=== PATIENT | male | born 1960 | race Caucasian/White ===

== ENCOUNTER → 2018-01-24 | Outpatient (CLI) | payer OTHER ==
--- NOTE | 2018-01-26 18:55 | MR ---
EXAMINATION TYPE: MR lumbar spine wo/w con DATE OF EXAM: 01/24/2018 COMPARISON: Prior MRI lumbar spine May 18, 2014. CT abdomen January 31, 2016. HISTORY: Pain, Postlaminectomy syndrome per order. Abnormal EMG with pain going into both lower extre mities, history of prior surgery 2003 per patient. TECHNIQUE: Multiplanar, multisequence images of the lumbar spine is performed without and with IV contrast, util izing 7.5 mL intravenous Gadavist FINDINGS: Sagittal images of the lumbar spine show vertebral body heights and alignment to remain sat isfactory. There is artifact from artificial disc material L4-L5 level redemonstrated. There is multi level disc desiccation and superior and inferior to this. There is stable mild disc space narrowing p osteriorly at L3-L4 level with small posterior disc herniation seen on sagittal images effacing anter ior thecal sac. The conus medullaris is stable in position and signal ending T12-L1 level. The bone marrow signal intensity is within normal limits. No suspicious enhancement is seen. Mild to minimal m ultilevel anterior spurring is redemonstrated. Axial images show the T12-L1 level to remain within normal limits. Axial images at L1-L2 level show persistent mild to moderate broad disc bulge mildly effaces the ante rior thecal sac on axial image 23, bilateral neural foramina are patent. No significant change from p rior MRI. Axial images at L2-L3 level show mild facet degenerative changes bilaterally and mild broad disc bulg e mildly effaces the anterior thecal sac there is left lateral disc protrusion component on axial tiffanie ge 18. There is mild left greater than right anterior inferior neural foraminal narrowing seen best o n sagittal image 3 redemonstrated. Right-sided neural foramen is patent. Axial images at L3-L4 level redemonstrate moderate facet degenerative change bilaterally. There is pe rsistent moderate right-sided neural foraminal narrowing and mild left-sided neural foraminal narrowi ng. There is broad-based posterior disc protrusion mildly effaces the anterior thecal sac on axial im age 14. Encroachment on right L3 nerve is difficult to exclude on sagittal image 12 along posterior and inferior aspect similar to prior MRI. There is spinous process resection redemonstrated. Axial images at L4-L5 level redemonstrated bilateral laminectomy defects and spinous process resectio n. Artifact from this material is seen. Spinal canal is preserved. Bilateral neural foramina are walsh nt. Moderate to advanced bilateral facet arthropathy is redemonstrated. Axial images at L5-S1 level redemonstrated man status post facet degenerative changes bilaterally. Th ere is posterior spinous process resection. Spinal canal is preserved. Bilateral neural foramina are patent. There is infrarenal abdominal aortic aneurysm measuring up to 3.2 cm transverse diameter axial image 18 redemonstrated. IMPRESSION: Postsurgical change L4-L5 level redemonstrated with stable and satisfactory alignment. Mu ltilevel degenerative changes are seen as detailed above without significant change or progression fr om prior MRI. A 3.2 cm infrarenal abdominal aortic aneurysm is noted.
== END ==
LOC: RADMRIMAIN 19:50
PROVIDERS: ATTEND Anesthesiology Pain Medicine
DX: M51.36 Other intervertebral disc degeneration, lumbar region (principal); M48.061 Spinal stenosis, lumbar region without neurogenic claudication; M51.26 Other intervertebral disc displacement, lumbar region; M46.96 Unspecified inflammatory spondylopathy, lumbar region; I71.4 Abdominal aortic aneurysm, without rupture; M96.1 Postlaminectomy syndrome, not elsewhere classified
CPT/HCPCS: 72158

== ENCOUNTER 2018-02-19 13:31 | Inpatient (IN) | payer OTHER ==
[2018-02-19 14:12] LABS: Basophils % (A) 0 %; Eosinophils # (A) 0.3 k/uL (0-0.7); Eosinophils % (A) 4 %; HCT 37.9 % (39.0-53.0); HGB 12.7 gm/dL (13.0-17.5); Lymphocytes % (A) 15 %; MCH 29.9 pg (25.0-35.0); MCHC 33.6 g/dL (31.0-37.0); MCV 89.1 fL (80.0-100.0); Mean Platelet Volume 7.6; Monocytes # (A) 0.6 k/uL (0-1.0); Monocytes % (A) 8 %; Neutrophils # (A) 4.8 k/uL (1.3-7.7); Neutrophils % (A) 69 %; Platelet Count 229 k/uL (150-450); RBC 4.25 m/uL (4.30-5.90); RDW 13.8 % (11.5-15.5); WBC 6.9 k/uL (3.8-10.6)
--- NOTE | 2018-02-19 14:18 | XR ---
EXAMINATION TYPE: XR chest 2V DATE OF EXAM: 02/19/2018 COMPARISON: Prior chest x-ray 04/25/2016 HISTORY: Chest pain TECHNIQUE: Frontal and lateral views of the chest are obtained. FINDINGS: There is no focal air space opacity, pleural effusion, or pneumothorax seen. The cardiac silhouette size is within normal limits. The osseous structures are intact. There are overlying car diac leads. Arthropathy noted within the shoulders. Lung volumes again noted to be prominent, possibl y indicative of COPD. IMPRESSION: No acute cardiopulmonary process.
--- NOTE | 2018-02-19 14:18 | ED ---
General Adult HPI - General Chief complaint: Chest Pain Stated complaint: Chest Pain Time Seen by Provider: 02/19/18 13:37 Source: patient Mode of arrival: wheelchair Limitations: no limitations - Related Data Home Medications Medication Instructions Recorded Confirmed Aspirin 81 mg PO DAILY 01/10/16 02/19/18 Leflunomide [Arava] 20 mg PO DAILY 04/25/16 02/19/18 Diltiazem HCl [Diltiazem 24Hr ER] 240 mg PO Q24HR 08/07/17 02/19/18 Buprenorphine HCl/Naloxone HCl 0.5 tab SL BID 02/19/18 02/19/18 [Zubsolv 2.9-0.71 mg Tablet Sl] Cetirizine HCl [Zyrtec] 10 mg PO DAILY 02/19/18 02/19/18 Etanercept [Enbrel] 50 mg SQ Q7DAYS 02/19/18 02/19/18 Gabapentin [Neurontin] 300 mg PO HS 02/19/18 02/19/18 traZODone HCL 150 mg PO HS 02/19/18 02/19/18 Previous Rx's Medication Instructions Recorded Nitroglycerin Sl Tabs [Nitrostat] 0.4 mg SUBLINGUAL Q5M PRN #25 tab 04/26/16 Allergies Allergy/AdvReac Type Severity Reaction Status Date / Time rofecoxib [From Vioxx] Allergy Severe Swelling Verified 02/19/18 14:09 Review of Systems ROS Statement: Those systems with pertinent positive or pertinent negative responses have been documented in the HPI. ROS Other: All systems not noted in ROS Statement are negative. Past Medical History Past Medical History: Chest Pain / Angina, Hyperlipidemia, Hypertension, Rheumatoid Arthritis (RA) Additional Past Medical History / Comment(s): "muscle spasms in heart", hiatal hernia, History of Any Multi-Drug Resistant Organisms: None Reported Past Surgical History: Appendectomy, Back Surgery, Cholecystectomy, Heart Catheterization, Tonsillectomy Additional Past Surgical History / Comment(s): DENTAL IMPLANT Past Anesthesia/Blood Transfusion Reactions: Family History of Problems w/ Anesthesia Additional Past Anesthesia/Blood Transfusion Reaction / Comment(s): sister- long time to come out Past Psychological History: No Psychological Hx Reported Smoking Status: Current every day smoker Past Alcohol Use History: None Reported Past Drug Use History: None Reported - Past Family History Father History Unknown: Yes Mother Family Medical History: No Reported History General Exam Limitations: no limitations Course Vital Signs 02/19/18 02/19/18 02/19/18 13:36 14:28 15:18 Temperature 98.3 F Pulse Rate 70 79 70 Respiratory 18 16 18 Rate Blood Pressure 107/65 112/64 125/56 O2 Sat by Pulse 98 96 97 Oximetry EKG Findings - EKG Comments: EKG Findings:: EKG shows sinus rhythm rate of 61, RI 144, QRS 86, QTc 426, EKG is repeated with no morphological changes Medical Decision Making - Lab Data Result diagrams: 02/19/18 13:56 02/19/18 13:56 Lab Results 02/19/18 02/19/18 02/19/18 Range/Units 13:56 13:56 13:56 WBC 6.9 (3.8-10.6) k/uL RBC 4.25 L (4.30-5.90) m/uL Hgb 12.7 L (13.0-17.5) gm/dL Hct 37.9 L (39.0-53.0) % MCV 89.1 (80.0-100.0) fL MCH 29.9 (25.0-35.0) pg MCHC 33.6 (31.0-37.0) g/dL RDW 13.8 (11.5-15.5) % Plt Count 229 (150-450) k/uL Neutrophils % 69 % Lymphocytes % 15 % Monocytes % 8 % Eosinophils % 4 % Basophils % 0 % Neutrophils # 4.8 (1.3-7.7) k/uL Lymphocytes # 1.0 (1.0-4.8) k/uL Monocytes # 0.6 (0-1.0) k/uL Eosinophils # 0.3 (0-0.7) k/uL Basophils # 0.0 (0-0.2) k/uL PT (9.0-12.0) sec INR (<1.2) APTT (22.0-30.0) sec Sodium 139 (137-145) mmol/L Potassium 3.8 (3.5-5.1) mmol/L Chloride 105 (98-107) mmol/L Carbon Dioxide 23 (22-30) mmol/L Anion Gap 11 mmol/L BUN 11 (9-20) mg/dL Creatinine 0.69 (0.66-1.25) mg/dL Est GFR (CKD-EPI)AfAm >90 (>60 ml/min/1.73 sqM) Est GFR (CKD-EPI)NonAf >90 (>60 ml/min/1.73 sqM) Glucose 91 (74-99) mg/dL Calcium 8.7 (8.4-10.2) mg/dL Magnesium 1.9 (1.6-2.3) mg/dL Total Bilirubin 1.5 H (0.2-1.3) mg/dL AST 89 H (17-59) U/L ALT 167 H (21-72) U/L Alkaline Phosphatase 696 H (38-126) U/L Total Creatine Kinase 79 (55-170) U/L CK-MB (CK-2) 2.5 H* (0.0-2.4) ng/mL CK-MB (CK-2) Rel Index 3.2 Troponin I <0.012 (0.000-0.034) ng/mL Total Protein 6.2 L (6.3-8.2) g/dL Albumin 3.2 L (3.5-5.0) g/dL Lipase (23-300) U/L Urine Color Urine Appearance (Clear) Urine pH (5.0-8.0) Ur Specific [place] (1.001-1.035) Urine Protein (Negative) Urine Glucose (UA) (Negative) Urine Ketones (Negative) Urine Blood (Negative) Urine Nitrite (Negative) Urine Bilirubin (Negative) Urine Urobilinogen (<2.0) mg/dL Ur Leukocyte Esterase (Negative) Urine RBC (0-5) /hpf Urine WBC (0-5) /hpf Calcium Oxalate Crystal (None) /hpf Amorphous Sediment (None) /hpf Urine Mucus (None) /hpf 02/19/18 02/19/18 02/19/18 Range/Units 13:56 13:56 14:58 WBC (3.8-10.6) k/uL RBC (4.30-5.90) m/uL Hgb (13.0-17.5) gm/dL Hct (39.0-53.0) % MCV (80.0-100.0) fL MCH (25.0-35.0) pg MCHC (31.0-37.0) g/dL RDW (11.5-15.5) % Plt Count (150-450) k/uL Neutrophils % % Lymphocytes % % Monocytes % % Eosinophils % % Basophils % % Neutrophils # (1.3-7.7) k/uL Lymphocytes # (1.0-4.8) k/uL Monocytes # (0-1.0) k/uL Eosinophils # (0-0.7) k/uL Basophils # (0-0.2) k/uL PT 10.1 (9.0-12.0) sec INR 1.0 (<1.2) APTT 22.0 (22.0-30.0) sec Sodium (137-145) mmol/L Potassium (3.5-5.1) mmol/L Chloride (98-107) mmol/L Carbon Dioxide (22-30) mmol/L Anion Gap mmol/L BUN (9-20) mg/dL Creatinine (0.66-1.25) mg/dL Est GFR (CKD-EPI)AfAm (>60 ml/min/1.73 sqM) Est GFR (CKD-EPI)NonAf (>60 ml/min/1.73 sqM) Glucose (74-99) mg/dL Calcium (8.4-10.2) mg/dL Magnesium (1.6-2.3) mg/dL Total Bilirubin (0.2-1.3) mg/dL AST (17-59) U/L ALT (21-72) U/L Alkaline Phosphatase (38-126) U/L Total Creatine Kinase (55-170) U/L CK-MB (CK-2) (0.0-2.4) ng/mL CK-MB (CK-2) Rel Index Troponin I (0.000-0.034) ng/mL Total Protein (6.3-8.2) g/dL Albumin (3.5-5.0) g/dL Lipase 597 H (23-300) U/L Urine Color Dark Yellow Urine Appearance Clear (Clear) Urine pH 6.0 (5.0-8.0) Ur Specific [place] 1.018 (1.001-1.035) Urine Protein Trace H (Negative) Urine Glucose (UA) Negative (Negative) Urine Ketones Negative (Negative) Urine Blood Negative (Negative) Urine Nitrite Negative (Negative) Urine Bilirubin 1+ H (Negative) Urine Urobilinogen 8.0 (<2.0) mg/dL Ur Leukocyte Esterase Small H (Negative) Urine RBC 2 (0-5) /hpf Urine WBC 6 H (0-5) /hpf Calcium Oxalate Crystal Rare H (None) /hpf Amorphous Sediment Rare H (None) /hpf Urine Mucus Many H (None) /hpf Disposition Clinical Impression: Unstable angina pectoris, Chest pain Disposition: ADMITTED IP TO THIS HOSP Condition: Undetermined Instructions: Chest Pain (ED) Is patient prescribed a controlled substance at d/c from ED?: No Referrals: Edmund Powers DO [Primary Care Provider] - 1-2 days
[2018-02-19 14:29] LABS: ALT 167 U/L (21-72); AST 89 U/L (17-59); Albumin 3.2 g/dL (3.5-5.0); Alkaline Phosphatase 696 U/L (38-126); Anion Gap 11 mmol/L; Blood Urea Nitrogen 11 mg/dL (9-20); Calcium 8.7 mg/dL (8.4-10.2); Carbon Dioxide 23 mmol/L (22-30); Chloride 105 mmol/L (98-107); Glucose 91 mg/dL (74-99); Magnesium 1.9 mg/dL (1.6-2.3); Potassium 3.8 mmol/L (3.5-5.1); Sodium 139 mmol/L (137-145); Total Bilirubin 1.5 mg/dL (0.2-1.3); Total Protein 6.2 g/dL (6.3-8.2)
[2018-02-19 14:31] LABS: Prothrombin Time 10.1 sec (9.0-12.0)
[2018-02-19 14:44] LABS: Creatine Kinase 79 U/L (55-170)
[2018-02-19 14:57] LABS: Troponin I <0.012 ng/mL (0.000-0.034)
[2018-02-19] MEDS ORDERED: MORPHINE SULFATE 2 MG/ML SYRINGE IVP PRN (14:58)
[2018-02-19] MEDS ORDERED: MORPHINE SULFATE 2 MG/ML SYRINGE IVP STA (14:58)
[2018-02-19 14:59] LABS: Creatine Kinase MB 2.5 ng/mL (0.0-2.4)
[2018-02-19] MEDS ORDERED: AMPICILLIN-SULBACTAM 3 GM in SODIUM CHLORIDE 0.9% 100 ML IVPB STA (14:59)
[2018-02-19 15:17] LABS: Amorphous Sediment,Urine Rare /hpf; Appearance,Urine Clear (Clear); Bilirubin,Urine 1+ (Negative); Blood,Urine Negative (Negative); Calcium Oxalate Crystals,Urine Rare /hpf; Color,Urine Dark Yellow; Glucose,Urine (UA) Negative (Negative); Ketones,Urine Negative (Negative); Leukocyte Esterase,Urine Small (Negative); Mucus,Urine Many /hpf; Nitrite,Urine Negative (Negative); Protein,Urine Trace (Negative); RBC,Urine 2 /hpf (0-5); Specific Gravity,Urine 1.018 (1.001-1.035); WBC,Urine 6 /hpf (0-5)
[2018-02-19] MEDS ORDERED: ASPIRIN 81 MG PO STA (16:10)
[2018-02-19] MEDS ORDERED: HEPARIN SODIUM,PORCINE 5,000 UNIT/ML 1 ML VIAL IV ONE (16:10)
[2018-02-19] MEDS ORDERED: NITROGLYCERIN SL TABS 0.4 MG TAB SUBLINGUAL PRN ×2 (16:10→17:41)
[2018-02-19] MEDS ORDERED: HEPARIN SODIUM,PORCINE 5,000 UNIT/ML 1 ML VIAL IV PRN (16:10)
[2018-02-19] MEDS ORDERED: HEPARIN SOD,PORK IN 0.45% NACL 25,000 UNIT in 0.45% NACL 1 500ML.BAG IV SCH (16:15)
--- NOTE | 2018-02-19 16:36 | US ---
EXAMINATION TYPE: US gallbladder DATE OF EXAM: 02/19/2018 COMPARISON: CLINICAL HISTORY: Pain. GB removed x 4 years per patient, NPO, RUQ pain EXAM MEASUREMENTS: Liver Length: 18.1 cm CBD: 0.4 cm CHD: 0.3 cm Right Kidney: 11.4 x 4.5 x 5.0 cm Pancreas: Tail not well visualized. Echogenic. Main pancreatic duct appears upper limits of normal = 2.6 mm. Liver: Appears enlarged Gallbladder: Surgically absent Evidence for sonographic Park's sign: neg CBD: wnl CHD: wnl Right Kidney: wnl In upper midline abdomen, prominent simple cystic appearing lesion seen = 3.3 x 2.4 x 2.1 cm IMPRESSION: 1. Hepatomegaly.
--- NOTE | 2018-02-19 17:41 | P.HPIM ---
History of Present Illness H&P Date: 02/19/18 Chief Complaint: Chest pain/mid epigastric pain. 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 previous medical history significant for hypertension and hypertensive cardiovascular disease, history of Prinzmetal angina, chronic tobacco use and dependence, history of the hyperlipidemia, rheumatoid arthritis, patient was walking when he suddenly developed to have a left-sided chest pain radiating to the jaw associated with severe mid epigastric pain , patient try to take a nitroglycerin he took one every 5 minutes without any help he ended up driving to work and he asked one of his coworker to bring him to the emergency department at [facility] he had a twelve-lead EKG did not show any evidence of acute of normalities, however he was found to have an elevated liver function tests including bilirubin with elevated lipase he had an ultrasound of the abdomen that showed hepatomegaly without evidence of dilated common bile duct suggestive of possible a passed common bile duct stone however the pancreatic duct was slightly at the upper limit of normal, patient was sitting up in bed that he was eating his dinner he had no evidence of pain at that time. However because of the presentation patient was admitted to the hospital for evaluation by cardiology he also need to be evaluated by a computed tomography scan of the abdomen and pelvis with contrast for further evaluation of the pancreatic area due to his pancreatitis. Review of Systems Constitutional: Denies anorexia, Denies chronic headaches, Denies lethargy, Denies weakness, Denies weight gain Eyes: denies blurred vision, denies bulging eye, denies decreased vision Ears: deny: decreased hearing Ears, nose, mouth and throat: Denies dysphagia, Denies neck lump, Denies sore throat Cardiovascular: Reports chest pain, Reports decreased exercise tolerance, Reports high blood pressure, Reports shortness of breath, Denies rapid heart beat, Denies syncope Respiratory: Reports cough with sputum, Denies congestion, Denies home oxygen, Denies sleep apnea, Denies snoring, Denies wheezing Gastrointestinal: Reports abdominal pain, Reports bloating, Reports nausea, Denies heartburn, Denies melena, Denies vomiting Genitourinary: Denies dysuria, Denies nocturia, Denies testicular lump Musculoskeletal: Denies myalgias Musculoskeletal: left: ankle pain, ankle stiffness, foot pain, foot stiffness, foot swelling, absent: elbow pain, elbow stiffness, elbow swelling, hand pain, hand stiffness, hand swelling, hip pain, hip stiffness, hip swelling, knee pain , knee stiffness, knee swelling, shoulder pain, shoulder stiffness, shoulder swelling, wrist pain, wrist stiffness, wrist swelling Integumentary: Denies pruritus, Denies rash Neurological: Denies numbness, Denies weakness Psychiatric: Denies anxiety, Denies depression Endocrine: Denies fatigue, Denies weight change Past Medical History Past Medical History: Chest Pain / Angina, Hyperlipidemia, Hypertension, Rheumatoid Arthritis (RA) Additional Past Medical History / Comment(s): "muscle spasms in heart", hiatal hernia, History of Any Multi-Drug Resistant Organisms: None Reported Past Surgical History: Appendectomy, Back Surgery, Cholecystectomy, Heart Catheterization, Tonsillectomy Additional Past Surgical History / Comment(s): DENTAL IMPLANT Past Anesthesia/Blood Transfusion Reactions: Family History of Problems w/ Anesthesia Additional Past Anesthesia/Blood Transfusion Reaction / Comment(s): sister- long time to come out Past Psychological History: No Psychological Hx Reported Smoking Status: Current every day smoker (Patient smoked about a pack every day start smoking when he was 16-year-old.) Past Alcohol Use History: None Reported Past Drug Use History: None Reported - Past Family History Father History Unknown: Yes Family Medical History: Unable to Obtain (Patient is no much about his father.) Mother Family Medical History: Coronary Artery Disease (CAD), Rheumatoid Arthritis (RA ) (Mother is 78-year-old has history of CAD and rheumatoid arthritis.) Brother(s) Family Medical History: No Reported History (Patient has 4 brothers no major medical problems.) Sister(s) Family Medical History: Rheumatoid Arthritis (RA) (Patient has 2 sisters with rheumatoid arthritis.) Daughter(s) Family Medical History: No Reported History (Patient has 2 daughters no major medical problems.) Medications and Allergies Home Medications Medication Instructions Recorded Confirmed Type Aspirin 81 mg PO DAILY 01/10/16 02/19/18 History Leflunomide [Arava] 20 mg PO DAILY 04/25/16 02/19/18 History Nitroglycerin Sl Tabs [Nitrostat] 0.4 mg SUBLINGUAL Q5M PRN #25 tab 04/26/16 Rx Diltiazem HCl [Diltiazem 24Hr ER] 240 mg PO Q24HR 08/07/17 02/19/18 History Buprenorphine HCl/Naloxone HCl 0.5 tab SL BID 02/19/18 02/19/18 History [Zubsolv 2.9-0.71 mg Tablet Sl] Cetirizine HCl [Zyrtec] 10 mg PO DAILY 02/19/18 02/19/18 History Etanercept [Enbrel] 50 mg SQ Q7DAYS 02/19/18 02/19/18 History Gabapentin [Neurontin] 300 mg PO HS 02/19/18 02/19/18 History traZODone HCL 150 mg PO HS 02/19/18 02/19/18 History Allergies Allergy/AdvReac Type Severity Reaction Status Date / Time rofecoxib [From Vioxx] Allergy Severe Swelling Verified 02/19/18 14:09 Physical Exam Vitals: Vital Signs Temp Pulse Resp BP Pulse Ox 02/19/18 17:21 76 18 145/67 95 02/19/18 16:18 67 18 129/72 97 02/19/18 15:18 70 18 125/56 97 02/19/18 14:28 79 16 112/64 96 02/19/18 13:36 98.3 F 70 18 107/65 98 Intake and Output 02/19/18 02/19/18 02/19/18 06:59 14:59 22:59 Other: Weight 81.647 kg - Constitutional General appearance: average body habitus, no acute distress - EENT Eyes: anicteric sclerae, EOMI, PERRLA, no ptosis, no scleral icterus, normal appearance ENT: hearing grossly normal, NA/AT, normal oropharynx, no thrush Ears: bilateral: normal - Neck Neck: no lymphadenopathy, normal ROM, no rigidity, no stridor, no thyromegaly Carotids: bilateral: upstroke normal Thyroid: bilateral: normal size - Respiratory Respiratory: bilateral: diminished, wheezing, prolonged expiration, negative: dullness, rales, rhonchi - Cardiovascular Rhythm: regular Heart sounds: normal: S1, S2 Abnormal Heart Sounds: systolic murmur, no S3 Gallop - Gastrointestinal General gastrointestinal: normal bowel sounds, soft, tenderness (Epigastric area.), no umbilical hernia, no ventral hernia - Integumentary Integumentary: normal, normal turgor - Neurologic Neurologic: CNII-XII intact - Musculoskeletal Musculoskeletal: gait normal, strength equal bilaterally - Psychiatric Psychiatric: A&O x's 3, appropriate affect, intact judgment & insight Results CBC & Chem 7: 18 13:56 02/19/18 13:56 Labs: Abnormal Lab Results - Last 24 Hours (Table) 02/19/18 02/19/18 02/19/18 Range/Units 13:56 13:56 13:56 RBC 4.25 L (4.30-5.90) m/uL Hgb 12.7 L (13.0-17.5) gm/dL Hct 37.9 L (39.0-53.0) % Total Bilirubin 1.5 H (0.2-1.3) mg/dL AST 89 H (17-59) U/L ALT 167 H (21-72) U/L Alkaline Phosphatase 696 H (38-126) U/L CK-MB (CK-2) 2.5 H* (0.0-2.4) ng/mL Total Protein 6.2 L (6.3-8.2) g/dL Albumin 3.2 L (3.5-5.0) g/dL Lipase (23-300) U/L Urine Protein (Negative) Urine Bilirubin (Negative) Ur Leukocyte Esterase (Negative) Urine WBC (0-5) /hpf Calcium Oxalate Crystal (None) /hpf Amorphous Sediment (None) /hpf Urine Mucus (None) /hpf 18 02/19/18 Range/Units 13:56 14:58 RBC (4.30-5.90) m/uL Hgb (13.0-17.5) gm/dL Hct (39.0-53.0) % Total Bilirubin (0.2-1.3) mg/dL AST (17-59) U/L ALT (21-72) U/L Alkaline Phosphatase (38-126) U/L CK-MB (CK-2) (0.0-2.4) ng/mL Total Protein (6.3-8.2) g/dL Albumin (3.5-5.0) g/dL Lipase 597 H (23-300) U/L Urine Protein Trace H (Negative) Urine Bilirubin 1+ H (Negative) Ur Leukocyte Esterase Small H (Negative) Urine WBC 6 H (0-5) /hpf Calcium Oxalate Crystal Rare H (None) /hpf Amorphous Sediment Rare H (None) /hpf Urine Mucus Many H (None) /hpf Thrombosis Risk Factor Assmnt - DVT/VTE Prophylaxis DVT/VTE Prophylaxis: Pharmacologic Prophylaxis ordered, Mechanical Prophylaxis ordered Assessment and Plan Assessment: Assessment and plan: 1. Left-sided chest pain thought to be due to Prinzmetal angina. Continue Cardizem CD 240 mg orally once every day, check cardiac biomarkers 3, telemetry , aspirin 325 mg once every day, heparin drip, nitroglycerin, cardiology consultation. 2. Mid epigastric abdominal pain with elevated liver function tests and hepatomegaly with prominent pancreatic duct and pancreatitis. This seems to be a possible passed common bile duct stone even though the common bile duct stone even though the ultrasound that showed evidence of dilatation of the CBD, however because of the elevated liver function tests and bilirubin along with the pancreatitis this is has to be related to that however patient will need to go for a computed tomography scan of the abdomen with contrast for further evaluation this will be done the next 24 hours after repeating his CMP amylase and lipase if they continued to be persistently elevated. 3. Hypertension and hypertensive cardiovascular disease. Continue Cardizem CD 240 mg orally once every day. 4. Hyperlipidemia. Lipid panel will be done. 5. Rheumatoid arthritis. Continue Arava 20 mg orally once every day hold off Enbrel for now. 6. Insomnia. Continue trazodone 150 mg at bedtime. 7. History of narcotic prescription use. Currently is on Suboxone 8. DVT prophylaxis. Continue heparin drip. 9. GI prophylaxis. Continue patient on PPI. 10. Observation.
[2018-02-19 18:19] VITALS: BMI 25.9
[2018-02-19] MEDS: traZODone HCL 50 MG TAB PO SCH (20:51)
[2018-02-19] MEDS: GABAPENTIN 300 MG CAP PO SCH (20:51)
[2018-02-19] MEDS: METOPROLOL TARTRATE 25 MG TAB PO SCH (20:52)
[2018-02-19] MEDS: NALOXONE HCL SL SCH (20:57)
[2018-02-19] MEDS: BUPRENORPHINE HCL SL SCH (20:57)
[2018-02-19] MEDS: [UNRECOGNIZED DRUG - OTHER] SL SCH (20:57)
[2018-02-19 21:08] LABS: Creatine Kinase 53 U/L (55-170)
[2018-02-19 21:21] LABS: Creatine Kinase MB 1.7 ng/mL (0.0-2.4); Troponin I <0.012 ng/mL (0.000-0.034)
[2018-02-20 03:14] LABS: Creatine Kinase 39 U/L (55-170)
[2018-02-20 03:25] LABS: Creatine Kinase MB 1.4 ng/mL (0.0-2.4); Troponin I <0.012 ng/mL (0.000-0.034)
[2018-02-20 07:18] LABS: ALT 159 U/L (21-72); AST 98 U/L (17-59); Albumin 2.7 g/dL (3.5-5.0); Alkaline Phosphatase 635 U/L (38-126); Anion Gap 6 mmol/L; Blood Urea Nitrogen 11 mg/dL (9-20); Calcium 8.4 mg/dL (8.4-10.2); Carbon Dioxide 23 mmol/L (22-30); Chloride 108 mmol/L (98-107); Cholesterol 128 mg/dL (<200); Glucose 137 mg/dL (74-99); HDL Cholesterol 35 mg/dL (40-60); LDL Cholesterol,Calculated 66 mg/dL (0-99); Lipase 776 U/L (23-300); Potassium 4.2 mmol/L (3.5-5.1); Sodium 137 mmol/L (137-145); Total Bilirubin 1.1 mg/dL (0.2-1.3); Total Protein 5.5 g/dL (6.3-8.2); Triglycerides 136 mg/dL (<150)
[2018-02-20] MEDS ORDERED: AMINOPHYLLINE 500 MG/20 ML VIAL IV PRN (07:18)
[2018-02-20] MEDS ORDERED: REGADENOSON 0.4 MG/5 ML SYRINGE IV ONE (07:18)
[2018-02-20 07:24] LABS: Basophils % (A) 0 %; Eosinophils # (A) 0.4 k/uL (0-0.7); Eosinophils % (A) 6 %; HCT 42.2 % (39.0-53.0); HGB 13.1 gm/dL (13.0-17.5); Hypochromasia Slight; Lymphocytes % (A) 15 %; MCH 28.5 pg (25.0-35.0); MCHC 30.9 g/dL (31.0-37.0); MCV 92.1 fL (80.0-100.0); Mean Platelet Volume 7.5; Monocytes # (A) 0.6 k/uL (0-1.0); Monocytes % (A) 10 %; Neutrophils # (A) 4.1 k/uL (1.3-7.7); Neutrophils % (A) 65 %; Platelet Count 229 k/uL (150-450); RBC 4.58 m/uL (4.30-5.90); RDW 13.9 % (11.5-15.5); WBC 6.2 k/uL (3.8-10.6)
[2018-02-20] MEDS: DILTIAZEM CD 240 MG CAP.ER.24H PO SCH (08:20)
[2018-02-20] MEDS: PANTOPRAZOLE 40 MG TABLET PO SCH (08:20)
[2018-02-20] MEDS: LORATADINE 10 MG TAB PO SCH (08:20)
[2018-02-20] MEDS: ATORVASTATIN 80 MG TAB PO SCH (08:21)
[2018-02-20] MEDS: METOPROLOL TARTRATE 25 MG TAB PO SCH ×2 (08:21→21:22)
[2018-02-20] MEDS: LEFLUNOMIDE 20 MG TAB PO SCH (08:21)
[2018-02-20] MEDS: ASPIRIN 325 MG TAB PO SCH (08:24)
--- NOTE | 2018-02-20 09:28 | P.PN ---
Progress Note - Text Progress Note Date: 02/20/18 Consult attempted patient off unit for stress test
--- NOTE | 2018-02-20 11:22 | NM ---
EXAMINATION TYPE: NM stress lexiscan cardiolite DATE OF EXAM: 02/20/2018 COMPARISON: NONE HISTORY: Chest pain TECHNIQUE: After the intravenous administration of 10.1 mCi Tc 99m Sestamibi - Cardiolite resting SP ECT images acquired 70 minutes post injection. The patient received 0.4mg Lexiscan, 25.5 mCi Tc 99m Sestamibi - Stress images obtained [address] injection FINDINGS: Review of stress and rest SPECT images demonstrates decreased radio pharmaceutical uptake towards the apex of the inferolateral left ventricle on stress as compared to rest imaging, gut activity also no vineet Gated analysis shows normal wall motion with an estimated left ventricular ejection fraction of 6 3 %. IMPRESSION: Pharmacologically induced left ventricular myocardial ischemia
--- NOTE | 2018-02-20 11:22 | CONS ---
CONSULTATION This is a 57-year-old gentleman with a fairly hardworking person. He used to see Dr. Sabrina Pritchard until 2016 and now sees a orientation and mobility specialist in the [place] area. He came into the hospital mainly with complaints of what seems to be a discomfort in the chest and the quality of the pain seemed somewhat atypical but it seemed to persist and it bothered him to the extent that he took nitroglycerin sublingual and did not obtain relief and then came into the hospital. He has a history of cardiac cath in 2016 which did not reveal any significant CAD. There is a question of vasospasm of his coronary arteries, but never documented. He also has hypertension, hyperlipidemia, rheumatoid arthritis, and he smokes. He is status post appendectomy and cholecystectomy. At the time of my evaluation, he is resting comfortably without symptoms. His 3 sets of troponins are normal and EKG remains unremarkable. PAST MEDICAL HISTORY: Remarkable for a cardiac cath that was unremarkable in 2016, hypertension, hyperlipidemia, rheumatoid arthritis. He has also history of cholecystectomy and appendectomy in the past. MEDICATIONS: At home include aspirin, he takes sublingual nitroglycerin, diltiazem for a question of vasospasm, which does not seem to have been well quantified. He takes Zyrtec and Neurontin, trazodone. He is allergic to VIOXX. PHYSICAL EXAMINATION: Blood pressure is 128/70, pulse rate is 60 per minute, regular. HEENT: Unremarkable. Fundus was not examined by me. Neck is supple. No JVD. I do not hear a carotid bruit. There is no thyromegaly. Heart exam reveals S1, S2 heard normally without any rub, murmur or gallop. Lungs are clear. Abdomen is soft, nontender. Lower extremities reveal normal pulses. No edema. Central nervous system is normal. EKG revealed sinus mechanism, isolated PVCs. LABORATORY DATA: Reveals unremarkable troponins. IMPRESSION: 1. Chest pain syndrome, unlikely to be angina but patient has history of vasospastic angina, I am not sure how this was quantified. He has had a cardiac cath that was unremarkable in December 2015. 2. Hypertension. 3. Hyperlipidemia. 4. History of rheumatoid arthritis. RECOMMENDATIONS: I have reviewed the cath report and noted that he does not have any significant obstructive CAD. Apparently, there was some spasm with nitroglycerin, there was improvement in the caliber of the vessel. However, there is also a small question of infrarenal aneurysm as well on the cardiac cath report. I am recommending that we will perform a Lexiscan stress test and if this is normal, he can be discharged. I have spent substantial amount of time and explained to the patient the importance of quitting smoking. I have advised him that if the stress test is normal, he can go home with the same medications, but he should quit smoking. He will have a Lexiscan stress test today. Thank you very much for the consult. AMY / DEB: [id number] /
--- NOTE | 2018-02-20 12:09 | P.CONS ---
History of Present Illness - Reason for Consult Consult date: 02/20/18 Hepatomegaly possible CBD stone Requesting physician: Chintan Gregory - History of Present Illness 57-year-old male with a history of cholelithiasis cholecystectomy 4-5 years ago , remote EtOH abuse quit 22 years ago, hypertension, hypertensive could've vascular disease Prinzmetal angina, nicotine cigarette dependency, RA admitted with acute midsternal left-sided chest pain as well as epigastric pain radiating to his left arm up to his jaw that started around noon yesterday. He had a previous incident of this type of pain a week ago but not as intense as well as his urine being more dark in color over the last week. Lexiscan stress test performed this morning results identified pharmacological induced left ventricular myocardial ischemia. Admission white count 6.9. Hemoglobin 12.7. INR 1.0. Total bilirubin 1.5. AST 89. ALT 167. AP with 696. Triglycerides 136. Lipase 596. Today lipase is 776. Total bilirubin improved 1.1. AST 98. ALT 159. AP 635. Troponin 3 less than 0.012. No changes in medications. No recent alcohol consumption. Ultrasound of the abdomen reported hepatomegaly 18.1 cm. CBD 0.4 cm. Review of Systems Constitutional: Denies fever, chills, sweats, weight gain, or loss. HEENT: Negative for migraines, blurred vision or loss, earaches, drainage, tinnitus, oral mucosal lesions, dysphagia, or odynophagia. Cardiac: History of chest pain, hypertension. Respiratory: Negative for shortness of breath, hemoptysis, cough, or sputum production. Gastrointestinal: See HPI for pertinent findings. Genitourinary: Negative for hematuria, urgency, frequency, polyuria, dysuria, or penile discharge. Musculoskeletal: History of rheumatoid arthritis. Negative for muscle aches, swelling, arthritis, and arthralgias. Neurologic: Negative for stroke or TIA. Endocrine: Negative for thyroid problems. Skin: Negative for rash or itching. Psychiatric: Negative history for depression and anxiety Past Medical History Past Medical History: Chest Pain / Angina, Hyperlipidemia, Hypertension, Rheumatoid Arthritis (RA) Additional Past Medical History / Comment(s): "muscle spasms in heart", hiatal hernia, History of Any Multi-Drug Resistant Organisms: None Reported Past Surgical History: Appendectomy, Back Surgery, Cholecystectomy, Heart Catheterization, Tonsillectomy Additional Past Surgical History / Comment(s): DENTAL IMPLANT Past Anesthesia/Blood Transfusion Reactions: Family History of Problems w/ Anesthesia Additional Past Anesthesia/Blood Transfusion Reaction / Comm: sister- long time to come out Past Psychological History: No Psychological Hx Reported Additional Psychological History / Comment(s): . Smoking Status: Current every day smoker Past Alcohol Use History: None Reported Additional Past Alcohol Use History / Comment(s): smokes 1 PPD, started smoking age 16 Past Drug Use History: None Reported Additional Drug Use History / Comment(s): SMOKES MARIJUANA OCC - Past Family History Father History Unknown: Yes Family Medical History: Unable to Obtain (Patient is no much about his father.) Mother Family Medical History: Coronary Artery Disease (CAD), Rheumatoid Arthritis (RA) Brother(s) Family Medical History: No Reported History Sister(s) Family Medical History: Rheumatoid Arthritis (RA) Daughter(s) Family Medical History: No Reported History Medications and Allergies Home Medications Medication Instructions Recorded Confirmed Type Aspirin 81 mg PO DAILY 01/10/16 02/19/18 History Leflunomide [Arava] 20 mg PO DAILY 04/25/16 02/19/18 History Nitroglycerin Sl Tabs [Nitrostat] 0.4 mg SUBLINGUAL Q5M PRN #25 tab 04/26/16 Rx Diltiazem HCl [Diltiazem 24Hr ER] 240 mg PO Q24HR 08/07/17 02/19/18 History Buprenorphine HCl/Naloxone HCl 0.5 tab SL BID 02/19/18 02/19/18 History [Zubsolv 2.9-0.71 mg Tablet Sl] Cetirizine HCl [Zyrtec] 10 mg PO DAILY 02/19/18 02/19/18 History Etanercept [Enbrel] 50 mg SQ Q7DAYS 02/19/18 02/19/18 History Gabapentin [Neurontin] 300 mg PO HS 02/19/18 02/19/18 History traZODone HCL 150 mg PO HS 02/19/18 02/19/18 History Allergies Allergy/AdvReac Type Severity Reaction Status Date / Time rofecoxib [From Vioxx] Allergy Severe Swelling Verified 02/19/18 14:09 Physical Exam Vitals: Vital Signs Temp Pulse Pulse Resp BP BP BP 02/20/18 11:35 97.8 F 50 L 18 123/56 02/20/18 07:15 98.3 F 63 18 124/69 02/20/18 04:00 58 L 16 02/20/18 03:49 98.3 F 59 L 16 120/64 02/20/18 00:00 58 L 16 02/19/18 23:14 98.2 F 66 16 119/71 02/19/18 19:55 98.0 F 68 16 127/65 02/19/18 19:51 68 18 02/19/18 17:38 98.1 F 74 18 133/73 02/19/18 17:21 76 18 145/67 02/19/18 16:18 67 18 129/72 02/19/18 15:18 70 18 125/56 02/19/18 14:28 79 16 112/64 02/19/18 13:36 98.3 F 70 18 107/65 Pulse Ox 02/20/18 11:35 94 L 02/20/18 07:15 93 L 02/20/18 04:00 02/20/18 03:49 94 L 02/20/18 00:00 02/19/18 23:14 95 02/19/18 19:55 94 L 02/19/18 19:51 02/19/18 17:38 97 02/19/18 17:21 95 02/19/18 16:18 97 02/19/18 15:18 97 02/19/18 14:28 96 02/19/18 13:36 98 Intake and Output 02/19/18 02/20/18 02/20/18 22:59 06:59 14:59 Intake Total 760 540.881 Output Total 400 Balance 760 540.881 -400 Intake: IV 80 360 0.9 NS @ KVO) 80 160 Heparin Sod,Pork in 0.45% 200 NaCl 25,000 unit In 0.45 % NaCl 1 500ml.bag @ 12 UNITS/KG/HR 19.59 mls/hr IV .Q24H [facility] Rx#: [id number] Intake, IV Titration 80 180.881 Amount Heparin Sod,Pork in 0.45% 80 180.881 NaCl 25,000 unit In 0.45 % NaCl 1 500ml.bag @ 12 UNITS/KG/HR 19.59 mls/hr IV .Q24H [facility] Rx#: [id number] Oral 600 Output: Urine 400 Other: Voiding Method Toilet Toilet # Voids 2 2 Weight 79.6 kg 79.379 kg General appearance: The patient is alert, oriented, in no acute distress. HET: Head is normocephalic and atraumatic. Pupils are equal and reactive. Oropharynx is clear without lesions. Neck: Supple without lymphadenopathy. Trachea midline. Heart: S1 S2. Regular rate and rhythm. Lungs: No crackles or wheezes are heard. Abdomen: Soft, mild midepigastric discomfort, nondistended with bowel sounds. No peritoneal signs. No palpable organomegaly or masses. Extremities: Normal skin color and turgor. No cyanosis, rash, ulceration, clubbing, or edema. Radial and pedal pulses are 2/4 bilaterally. Neurological: No focal deficits. Strength and sensation are grossly intact. Results CBC & Chem 7: 02/20/18 06:35 02/20/18 06:35 Labs: Abnormal Lab Results - Last 24 Hours (Table) 02/19/18 02/19/18 02/19/18 Range/Units 13:56 13:56 13:56 RBC 4.25 L (4.30-5.90) m/uL Hgb 12.7 L (13.0-17.5) gm/dL Hct 37.9 L (39.0-53.0) % MCHC (31.0-37.0) g/dL Chloride (98-107) mmol/L Creatinine (0.66-1.25) mg/dL Glucose (74-99) mg/dL Total Bilirubin 1.5 H (0.2-1.3) mg/dL AST 89 H (17-59) U/L ALT 167 H (21-72) U/L Alkaline Phosphatase 696 H (38-126) U/L Total Creatine Kinase (55-170) U/L CK-MB (CK-2) 2.5 H* (0.0-2.4) ng/mL Total Protein 6.2 L (6.3-8.2) g/dL Albumin 3.2 L (3.5-5.0) g/dL HDL Cholesterol (40-60) mg/dL Lipase (23-300) U/L Urine Protein (Negative) Urine Bilirubin (Negative) Ur Leukocyte Esterase (Negative) Urine WBC (0-5) /hpf Calcium Oxalate Crystal (None) /hpf Amorphous Sediment (None) /hpf Urine Mucus (None) /hpf 02/19/18 02/19/18 02/19/18 Range/Units 13:56 14:58 20:08 RBC (4.30-5.90) m/uL Hgb (13.0-17.5) gm/dL Hct (39.0-53.0) % MCHC (31.0-37.0) g/dL Chloride (98-107) mmol/L Creatinine (0.66-1.25) mg/dL Glucose (74-99) mg/dL Total Bilirubin (0.2-1.3) mg/dL AST (17-59) U/L ALT (21-72) U/L Alkaline Phosphatase (38-126) U/L Total Creatine Kinase 53 L (55-170) U/L CK-MB (CK-2) (0.0-2.4) ng/mL Total Protein (6.3-8.2) g/dL Albumin (3.5-5.0) g/dL HDL Cholesterol (40-60) mg/dL Lipase 597 H (23-300) U/L Urine Protein Trace H (Negative) Urine Bilirubin 1+ H (Negative) Ur Leukocyte Esterase Small H (Negative) Urine WBC 6 H (0-5) /hpf Calcium Oxalate Crystal Rare H (None) /hpf Amorphous Sediment Rare H (None) /hpf Urine Mucus Many H (None) /hpf 02/20/18 02/20/18 02/20/18 Range/Units 01:56 06:35 06:35 RBC (4.30-5.90) m/uL Hgb (13.0-17.5) gm/dL Hct (39.0-53.0) % MCHC 30.9 L (31.0-37.0) g/dL Chloride 108 H (98-107) mmol/L Creatinine 0.60 L (0.66-1.25) mg/dL Glucose 137 H (74-99) mg/dL Total Bilirubin (0.2-1.3) mg/dL AST 98 H (17-59) U/L ALT 159 H (21-72) U/L Alkaline Phosphatase 635 H (38-126) U/L Total Creatine Kinase 39 L (55-170) U/L CK-MB (CK-2) (0.0-2.4) ng/mL Total Protein 5.5 L (6.3-8.2) g/dL Albumin 2.7 L (3.5-5.0) g/dL HDL Cholesterol 35 L (40-60) mg/dL Lipase 776 H (23-300) U/L Urine Protein (Negative) Urine Bilirubin (Negative) Ur Leukocyte Esterase (Negative) Urine WBC (0-5) /hpf Calcium Oxalate Crystal (None) /hpf Amorphous Sediment (None) /hpf Urine Mucus (None) /hpf US - abdomen: report reviewed (Dr. Jung) Assessment and Plan (1) Elevated liver enzymes Narrative/Plan: 57-year-old male admitted with chest abdominal pain with elevated liver enzymes and lipase with a history of cholelithiasis cholecystectomy possible passage of microlithiasis possible subacute pancreatitis. Current Visit: Yes Status: Acute Code(s): R74.8 - ABNORMAL LEVELS OF OTHER SERUM ENZYMES SNOMED Code(s): 729662439 (2) Hepatomegaly Current Visit: Yes Status: Acute Code(s): R16.0 - HEPATOMEGALY, NOT ELSEWHERE CLASSIFIED SNOMED Code(s): 13002203 (3) Elevated lipase Current Visit: Yes Status: Acute Code(s): R74.8 - ABNORMAL LEVELS OF OTHER SERUM ENZYMES SNOMED Code(s): 356686238 (4) Chest pain Narrative/Plan: Lexiscan stress test reported pharmacological induced left ventricular myocardial ischemia Current Visit: Yes Status: Acute Code(s): R07.9 - CHEST PAIN, UNSPECIFIED SNOMED Code(s): 01678699 Plan: 1. Repeat CMP pancreatic enzymes in a.m. ERCP not advise at this time. Cardiology presently evaluating. 2. If liver or pancreatic enzymes worsen advise MRCP. Will follow closely with you. Thank you for this kind referral and the opportunity to participate in the care of your patient. This consultation was discussed with Dr. Jung. The impression and plan of care have been directed as dictated.
[2018-02-20] MEDS ORDERED: ALPRAZolam 0.5 MG TAB PO PRN (12:24)
[2018-02-20] MEDS ORDERED: ALPRAZolam 0.25 MG TAB PO PRN (12:24)
[2018-02-20] MEDS ORDERED: SODIUM CHLORIDE 0.9% 1,000 ML in EMPTY BAG 1 BAG IV ONE (12:24)
--- NOTE | 2018-02-20 12:24 | P.PN ---
Subjective Lexiscan stress test has been reviewed and further evaluation is recommended with coronary angiography. I have discussed the risks, benefits and alternative therapies for the above-mentioned procedure and for both sedation/analgesia as well as necessary blood product administration, if indicated, as they pertain to this patient. The patient has indicated understanding and acceptance of the risks and procedures discussed. His is present during this discussion. Questions have been answered appropriately and he is agreeable to move forward with above stated procedure. NPO after midnight tonight for procedure tomorrow morning. Objective - Vital Signs Vital signs: Vital Signs Temp 97.8 F 02/20/18 11:35 Pulse 50 L 02/20/18 11:35 Resp 18 02/20/18 11:35 BP 123/56 02/20/18 11:35 Pulse Ox 94 L 02/20/18 11:35 Intake & Output 02/19/18 02/20/18 02/20/18 18:59 06:59 18:59 Intake Total 1300.881 Output Total 400 Balance 1300.881 -400 Weight 79.6 kg 79.379 kg Intake: IV 440 0.9 NS @ KVO) 240 Heparin Sod,Pork in 0.45% 200 NaCl 25,000 unit In 0.45 % NaCl 1 500ml.bag @ 12 UNITS/KG/HR 19.59 mls/hr IV .Q24H [facility] Rx#: [id number] Intake, IV Titration 260.881 Amount Heparin Sod,Pork in 0.45% 260.881 NaCl 25,000 unit In 0.45 % NaCl 1 500ml.bag @ 12 UNITS/KG/HR 19.59 mls/hr IV .Q24H [facility] Rx#: [id number] Oral 600 Output: Urine 400 Other: Voiding Method Toilet # Voids 2 - Labs CBC & Chem 7: 02/20/18 06:35 02/20/18 06:35 Labs: Abnormal Lab Results - Last 24 Hours (Table) 02/19/18 02/19/18 02/19/18 Range/Units 13:56 13:56 13:56 RBC 4.25 L (4.30-5.90) m/uL Hgb 12.7 L (13.0-17.5) gm/dL Hct 37.9 L (39.0-53.0) % MCHC (31.0-37.0) g/dL Chloride (98-107) mmol/L Creatinine (0.66-1.25) mg/dL Glucose (74-99) mg/dL Total Bilirubin 1.5 H (0.2-1.3) mg/dL AST 89 H (17-59) U/L ALT 167 H (21-72) U/L Alkaline Phosphatase 696 H (38-126) U/L Total Creatine Kinase (55-170) U/L CK-MB (CK-2) 2.5 H* (0.0-2.4) ng/mL Total Protein 6.2 L (6.3-8.2) g/dL Albumin 3.2 L (3.5-5.0) g/dL HDL Cholesterol (40-60) mg/dL Lipase (23-300) U/L Urine Protein (Negative) Urine Bilirubin (Negative) Ur Leukocyte Esterase (Negative) Urine WBC (0-5) /hpf Calcium Oxalate Crystal (None) /hpf Amorphous Sediment (None) /hpf Urine Mucus (None) /hpf 02/19/18 02/19/18 02/19/18 Range/Units 13:56 14:58 20:08 RBC (4.30-5.90) m/uL Hgb (13.0-17.5) gm/dL Hct (39.0-53.0) % MCHC (31.0-37.0) g/dL Chloride (98-107) mmol/L Creatinine (0.66-1.25) mg/dL Glucose (74-99) mg/dL Total Bilirubin (0.2-1.3) mg/dL AST (17-59) U/L ALT (21-72) U/L Alkaline Phosphatase (38-126) U/L Total Creatine Kinase 53 L (55-170) U/L CK-MB (CK-2) (0.0-2.4) ng/mL Total Protein (6.3-8.2) g/dL Albumin (3.5-5.0) g/dL HDL Cholesterol (40-60) mg/dL Lipase 597 H (23-300) U/L Urine Protein Trace H (Negative) Urine Bilirubin 1+ H (Negative) Ur Leukocyte Esterase Small H (Negative) Urine WBC 6 H (0-5) /hpf Calcium Oxalate Crystal Rare H (None) /hpf Amorphous Sediment Rare H (None) /hpf Urine Mucus Many H (None) /hpf 02/20/18 02/20/18 02/20/18 Range/Units 01:56 06:35 06:35 RBC (4.30-5.90) m/uL Hgb (13.0-17.5) gm/dL Hct (39.0-53.0) % MCHC 30.9 L (31.0-37.0) g/dL Chloride 108 H (98-107) mmol/L Creatinine 0.60 L (0.66-1.25) mg/dL Glucose 137 H (74-99) mg/dL Total Bilirubin (0.2-1.3) mg/dL AST 98 H (17-59) U/L ALT 159 H (21-72) U/L Alkaline Phosphatase 635 H (38-126) U/L Total Creatine Kinase 39 L (55-170) U/L CK-MB (CK-2) (0.0-2.4) ng/mL Total Protein 5.5 L (6.3-8.2) g/dL Albumin 2.7 L (3.5-5.0) g/dL HDL Cholesterol 35 L (40-60) mg/dL Lipase 776 H (23-300) U/L Urine Protein (Negative) Urine Bilirubin (Negative) Ur Leukocyte Esterase (Negative) Urine WBC (0-5) /hpf Calcium Oxalate Crystal (None) /hpf Amorphous Sediment (None) /hpf Urine Mucus (None) /hpf
--- NOTE | 2018-02-20 13:12 | P.PN ---
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 previous medical history significant for hypertension and hypertensive cardiovascular disease, history of Prinzmetal angina, chronic tobacco use and dependence, history of the hyperlipidemia, rheumatoid arthritis, patient was walking when he suddenly developed to have a left-sided chest pain radiating to the jaw associated with severe mid epigastric pain , patient try to take a nitroglycerin he took one every 5 minutes without any help he ended up driving to work and he asked one of his coworker to bring him to the emergency department at [facility] he had a twelve-lead EKG did not show any evidence of acute of normalities, however he was found to have an elevated liver function tests including bilirubin with elevated lipase he had an ultrasound of the abdomen that showed hepatomegaly without evidence of dilated common bile duct suggestive of possible a passed common bile duct stone however the pancreatic duct was slightly at the upper limit of normal, patient was sitting up in bed that he was eating his dinner he had no evidence of pain at that time. However because of the presentation patient was admitted to the hospital for evaluation by cardiology he also need to be evaluated by a computed tomography scan of the abdomen and pelvis with contrast for further evaluation of the pancreatic area due to his pancreatitis. 02/20: Patient was evaluated this morning, he is noted to be sitting up in the bed eating breakfast. He reports that chest pain is better, he denies any shortness of breath, nausea, vomiting, or abdominal pain. Patient underwent Lexiscan and it showed pharmacological induced left ventricular myocardial ischemia, cardiology is on consult, recommendations for coronary angiography tomorrow. GI consult placed due to elevated pancreatic enzymes, they recommend to hold off on ERCP and repeat pancreatic enzymes in the morning. Objective - Vital Signs Vital signs: Vital Signs Temp 98.3 F 02/20/18 07:15 Pulse 63 02/20/18 07:15 Resp 18 02/20/18 07:15 BP 124/69 02/20/18 07:15 Pulse Ox 93 L 02/20/18 07:15 Intake & Output 02/19/18 02/20/18 02/20/18 18:59 06:59 18:59 Intake Total 1300.881 Output Total 400 Balance 1300.881 -400 Weight 79.6 kg 79.379 kg Intake: IV 440 0.9 NS @ KVO) 240 Heparin Sod,Pork in 0.45% 200 NaCl 25,000 unit In 0.45 % NaCl 1 500ml.bag @ 12 UNITS/KG/HR 19.59 mls/hr IV .Q24H KARSTEN Rx#: [id number] Intake, IV Titration 260.881 Amount Heparin Sod,Pork in 0.45% 260.881 NaCl 25,000 unit In 0.45 % NaCl 1 500ml.bag @ 12 UNITS/KG/HR 19.59 mls/hr IV .Q24H KARSTEN Rx#: [id number] Oral 600 Output: Urine 400 Other: Voiding Method Toilet # Voids 2 - Exam - Constitutional General appearance: average body habitus, no acute distress - EENT Eyes: anicteric sclerae, EOMI, PERRLA, no ptosis, no scleral icterus, normal appearance ENT: hearing grossly normal, NA/AT, normal oropharynx, no thrush Ears: bilateral: normal - Neck Neck: no lymphadenopathy, normal ROM, no rigidity, no stridor, no thyromegaly Carotids: bilateral: upstroke normal Thyroid: bilateral: normal size - Respiratory Respiratory: bilateral: diminished, wheezing, prolonged expiration, negative: dullness, rales, rhonchi - Cardiovascular Rhythm: regular Heart sounds: normal: S1, S2 Abnormal Heart Sounds: systolic murmur, no S3 Gallop - Gastrointestinal General gastrointestinal: normal bowel sounds, soft, tenderness (Epigastric area.), no umbilical hernia, no ventral hernia - Integumentary Integumentary: normal, normal turgor - Neurologic Neurologic: CNII-XII intact - Musculoskeletal Musculoskeletal: gait normal, strength equal bilaterally - Psychiatric Psychiatric: A&O x's 3, appropriate affect, intact judgment & insight - Labs CBC & Chem 7: 02/20/18 06:35 02/20/18 06:35 Labs: Abnormal Lab Results - Last 24 Hours (Table) 02/19/18 02/19/18 02/19/18 Range/Units 13:56 13:56 13:56 RBC 4.25 L (4.30-5.90) m/uL Hgb 12.7 L (13.0-17.5) gm/dL Hct 37.9 L (39.0-53.0) % MCHC (31.0-37.0) g/dL Chloride (98-107) mmol/L Creatinine (0.66-1.25) mg/dL Glucose (74-99) mg/dL Total Bilirubin 1.5 H (0.2-1.3) mg/dL AST 89 H (17-59) U/L ALT 167 H (21-72) U/L Alkaline Phosphatase 696 H (38-126) U/L Total Creatine Kinase (55-170) U/L CK-MB (CK-2) 2.5 H* (0.0-2.4) ng/mL Total Protein 6.2 L (6.3-8.2) g/dL Albumin 3.2 L (3.5-5.0) g/dL HDL Cholesterol (40-60) mg/dL Lipase (23-300) U/L Urine Protein (Negative) Urine Bilirubin (Negative) Ur Leukocyte Esterase (Negative) Urine WBC (0-5) /hpf Calcium Oxalate Crystal (None) /hpf Amorphous Sediment (None) /hpf Urine Mucus (None) /hpf 02/19/18 02/19/18 02/19/18 Range/Units 13:56 14:58 20:08 RBC (4.30-5.90) m/uL Hgb (13.0-17.5) gm/dL Hct (39.0-53.0) % MCHC (31.0-37.0) g/dL Chloride (98-107) mmol/L Creatinine (0.66-1.25) mg/dL Glucose (74-99) mg/dL Total Bilirubin (0.2-1.3) mg/dL AST (17-59) U/L ALT (21-72) U/L Alkaline Phosphatase (38-126) U/L Total Creatine Kinase 53 L (55-170) U/L CK-MB (CK-2) (0.0-2.4) ng/mL Total Protein (6.3-8.2) g/dL Albumin (3.5-5.0) g/dL HDL Cholesterol (40-60) mg/dL Lipase 597 H (23-300) U/L Urine Protein Trace H (Negative) Urine Bilirubin 1+ H (Negative) Ur Leukocyte Esterase Small H (Negative) Urine WBC 6 H (0-5) /hpf Calcium Oxalate Crystal Rare H (None) /hpf Amorphous Sediment Rare H (None) /hpf Urine Mucus Many H (None) /hpf 02/20/18 02/20/18 02/20/18 Range/Units 01:56 06:35 06:35 RBC (4.30-5.90) m/uL Hgb (13.0-17.5) gm/dL Hct (39.0-53.0) % MCHC 30.9 L (31.0-37.0) g/dL Chloride 108 H (98-107) mmol/L Creatinine 0.60 L (0.66-1.25) mg/dL Glucose 137 H (74-99) mg/dL Total Bilirubin (0.2-1.3) mg/dL AST 98 H (17-59) U/L ALT 159 H (21-72) U/L Alkaline Phosphatase 635 H (38-126) U/L Total Creatine Kinase 39 L (55-170) U/L CK-MB (CK-2) (0.0-2.4) ng/mL Total Protein 5.5 L (6.3-8.2) g/dL Albumin 2.7 L (3.5-5.0) g/dL HDL Cholesterol 35 L (40-60) mg/dL Lipase 776 H (23-300) U/L Urine Protein (Negative) Urine Bilirubin (Negative) Ur Leukocyte Esterase (Negative) Urine WBC (0-5) /hpf Calcium Oxalate Crystal (None) /hpf Amorphous Sediment (None) /hpf Urine Mucus (None) /hpf Assessment and Plan Plan: 1. Left-sided chest pain thought to be due to Prinzmetal angina. Continue Cardizem CD 240 mg orally once every day, check cardiac biomarkers 3, telemetry , aspirin 325 mg once every day, heparin drip, nitroglycerin, cardiology consultation. Lexiscan showed pharmacological induced left ventricular myocardial ischemia, plans for cardiac cath tomorrow. 2. Mid epigastric abdominal pain with elevated liver function tests and hepatomegaly with prominent pancreatic duct and pancreatitis. This seems to be a possible passed common bile duct stone even though the common bile duct stone even though the ultrasound that showed evidence of dilatation of the CBD, however because of the elevated liver function tests and bilirubin along with the pancreatitis this is has to be related to that however patient will need to go for a computed tomography scan of the abdomen with contrast for further evaluation this will be done the next 24 hours after repeating his CMP amylase and lipase if they continued to be persistently elevated. GI on consult recommends to hold off on ERCP and continue to monitor pancreatic enzymes. 3. Hypertension and hypertensive cardiovascular disease. Continue Cardizem CD 240 mg orally once every day. 4. Hyperlipidemia. Lipid panel will be done. 5. Rheumatoid arthritis. Continue Arava 20 mg orally once every day hold off Enbrel for now. 6. Insomnia. Continue trazodone 150 mg at bedtime. 7. History of narcotic prescription use. Currently is on Suboxone 8. DVT prophylaxis. Continue heparin drip. 9. GI prophylaxis. Continue patient on PPI. The above impression and plan of care have been discussed and directed by signing physician. Amber Marr nurse practitioner acting as scribe for signing physician.
--- NOTE | 2018-02-20 14:48 | EST ---
EXERCISE STRESS AGE: 57 SEX: M HT: 69 WT: 175 PROTOCOL: Lexiscan Cardiolite HEART RATE REST: 52 BLOOD PRESSURE REST: 110/67 MAXIMUM HEART RATE ACHIEVED: 69 MAXIMUM BLOOD PRESSURE: 138/62 INDICATIONS: CP CLINICAL INFORMATION: Baseline EKG revealed normal sinus rhythm without significant ST-T changes. With Lexiscan administration, heart rate changed from 52 to 69 beats per minute and blood pressure changed from 110/60 to 138/62. Rare isolated PVCs were noted. EKG was unremarkable. By EKG criteria, this is unremarkable Lexiscan stress test. The nuclear scan results which are more pertinent, will be reported by the radiologist. MMODL / IJN: [id number] /
[2018-02-20] MEDS: NALOXONE HCL SL SCH ×2 (14:54→21:23)
[2018-02-20] MEDS: BUPRENORPHINE HCL SL SCH ×2 (14:54→21:23)
[2018-02-20] MEDS: [UNRECOGNIZED DRUG - OTHER] SL SCH ×2 (14:54→21:23)
[2018-02-20] MEDS: NICOTINE 21MG/24HR PATCH TRANSDERM SCH (19:23)
[2018-02-20] MEDS: GABAPENTIN 300 MG CAP PO SCH (21:22)
[2018-02-20] MEDS: traZODone HCL 50 MG TAB PO SCH (21:23)
[2018-02-20] MEDS ORDERED: IBUPROFEN 600 MG TAB PO PRN (22:20)
[2018-02-21 06:24] LABS: Mean Platelet Volume 7.2; Platelet Count 226 k/uL (150-450)
[2018-02-21] MEDS: LORATADINE 10 MG TAB PO SCH (06:45)
[2018-02-21] MEDS: ATORVASTATIN 80 MG TAB PO SCH (06:45)
[2018-02-21] MEDS: PANTOPRAZOLE 40 MG TABLET PO SCH (06:45)
[2018-02-21] MEDS: LEFLUNOMIDE 20 MG TAB PO SCH (06:45)
[2018-02-21] MEDS: ASPIRIN 325 MG TAB PO SCH (06:45)
[2018-02-21] MEDS: NICOTINE 21MG/24HR PATCH TRANSDERM SCH (06:45)
[2018-02-21 07:32] LABS: ALT 136 U/L (21-72); AST 77 U/L (17-59); Albumin 2.7 g/dL (3.5-5.0); Alkaline Phosphatase 654 U/L (38-126); Anion Gap 7 mmol/L; Blood Urea Nitrogen 10 mg/dL (9-20); Calcium 8.5 mg/dL (8.4-10.2); Carbon Dioxide 26 mmol/L (22-30); Chloride 108 mmol/L (98-107); Glucose 129 mg/dL (74-99); Potassium 4.2 mmol/L (3.5-5.1); Sodium 141 mmol/L (137-145); Total Bilirubin 1.1 mg/dL (0.2-1.3); Total Protein 5.4 g/dL (6.3-8.2)
[2018-02-21] MEDS: DILTIAZEM CD 240 MG CAP.ER.24H PO SCH (07:48)
[2018-02-21] MEDS: METOPROLOL TARTRATE 25 MG TAB PO SCH ×2 (07:48→21:16)
[2018-02-21] MEDS ORDERED: MIDAZOLAM 2 MG/2 ML VIAL ONE (09:35)
[2018-02-21] MEDS ORDERED: HEPARIN SODIUM 1,000 UN/ML (10ML VL) ONE (09:35)
[2018-02-21] MEDS ORDERED: diphenhydrAMINE 50 MG/ML 1 ML VIAL ONE (09:36)
[2018-02-21] MEDS ORDERED: LIDOCAINE 1% INJ 10MG/ML (20 ML MDV) ONE (09:36)
[2018-02-21] MEDS ORDERED: VERAPAMIL 2.5 MG/ML 2 ML AMP ONE (09:41)
--- NOTE | 2018-02-21 09:45 | P.PN ---
Subjective Progress Note Date: 02/21/18 Principal diagnosis: abdominal pain elevated liver pancreatic enzymes Heart catheterization today. Transaminases and lipase improved AST 77. ALT 136. AP 654. Lipase 532. CA-19-9 49.4. Total bilirubin normal 1.1. Afebrile. Objective - Vital Signs Vital signs: Vital Signs Temp 97.7 F 02/21/18 08:23 Pulse 58 L 02/21/18 08:23 Resp 18 02/21/18 08:23 BP 118/64 02/21/18 08:23 Pulse Ox 97 02/21/18 08:43 Intake & Output 02/20/18 02/21/18 02/21/18 18:59 06:59 18:59 Intake Total 660 1120 Output Total 400 Balance 260 1120 Weight 79.379 kg 78.7 kg Intake: Intake, IV Titration 640 Amount Sodium Chloride 0.9% 1, 640 000 ml In Empty Bag 1 bag @ 1 ML/KG/HR 79.37 mls/ hr IV .[id number] ONE Rx#: [id number] Oral 660 480 Output: Urine 400 Other: Voiding Method Toilet Toilet # Voids 1 1 # Bowel Movements 0 - Exam General appearance: The patient is alert, oriented, in no acute distress. HET: Head is normocephalic and atraumatic. Pupils are equal and reactive. Oropharynx is clear without lesions. Neck: Supple without lymphadenopathy. Trachea midline. Heart: S1 S2. Regular rate and rhythm. Lungs: No crackles or wheezes are heard. Abdomen: Soft, nontender, nondistended with bowel sounds. No peritoneal signs. No palpable organomegaly or masses. Extremities: Normal skin color and turgor. No cyanosis, rash, ulceration, clubbing, or edema. Radial and pedal pulses are 2/4 bilaterally. Neurological: No focal deficits. Strength and sensation are grossly intact. - Labs CBC & Chem 7: 02/21/18 05:41 02/21/18 05:41 Labs: Abnormal Lab Results - Last 24 Hours (Table) 02/20/18 02/21/18 02/21/18 Range/Units 06:35 05:41 05:41 Chloride 108 H (98-107) mmol/L Glucose 129 H (74-99) mg/dL AST 77 H (17-59) U/L ALT 136 H (21-72) U/L Alkaline Phosphatase 654 H (38-126) U/L Total Protein 5.4 L (6.3-8.2) g/dL Albumin 2.7 L (3.5-5.0) g/dL Lipase 532 H (23-300) U/L CA 19-9 Antigen 49.4 H (0.0-34.9) U/mL Assessment and Plan (1) Elevated liver enzymes Narrative/Plan: 57-year-old male admitted with chest abdominal pain with elevated liver enzymes and lipase with a history of cholelithiasis cholecystectomy possible passage of microlithiasis possible pancreatitis. Current Visit: Yes Status: Acute Code(s): R74.8 - ABNORMAL LEVELS OF OTHER SERUM ENZYMES SNOMED Code(s): 881756020 (2) Hepatomegaly Current Visit: Yes Status: Acute Code(s): R16.0 - HEPATOMEGALY, NOT ELSEWHERE CLASSIFIED SNOMED Code(s): 02918766 (3) Elevated lipase Current Visit: Yes Status: Acute Code(s): R74.8 - ABNORMAL LEVELS OF OTHER SERUM ENZYMES SNOMED Code(s): 904399244 (4) Chest pain Narrative/Plan: Lexiscan stress test reported pharmacological induced left ventricular myocardial ischemia Current Visit: Yes Status: Acute Code(s): R07.9 - CHEST PAIN, UNSPECIFIED SNOMED Code(s): 22869734 Plan: 1. Repeat CMP pancreatic enzymes in a.m. MRCP recommended by Dr. Jung today after heart catheterization. CA-19-[address] Jung mildly elevated but can be seen in the presence of acute pancreatitis. Will follow closely with you. Assessment and plan a care discussed with Dr. Jung
[2018-02-21] MEDS ORDERED: SODIUM CHLORIDE 0.9% 1,000 ML IV ONE (09:48)
[2018-02-21] MEDS ORDERED: diphenhydrAMINE 50 MG/ML 1 ML VIAL IVP ONE (10:00)
[2018-02-21] MEDS ORDERED: LIDOCAINE 1% (PF) 10MG/ML VIAL SQ ONE (10:00)
[2018-02-21] MEDS: MIDAZOLAM 2 MG/2 ML VIAL IVP ONE ×2 (10:00→10:02)
[2018-02-21] MEDS: VERAPAMIL SYRINGE (5 MG/10 ML) INTRAARTER ONE ×2 (10:03→10:16)
[2018-02-21] MEDS ORDERED: RX INFO: IV CONTRAST WAS GIVEN 1 EACH MISC MISCELLANE PRN (10:22)
[2018-02-21] MEDS ORDERED: IOPAMIDOL-370 100ML BTL INJ ONE (10:22)
[2018-02-21] MEDS ORDERED: SODIUM CHLORIDE 0.9% 1,000 ML IV SCH (10:30)
--- NOTE | 2018-02-21 11:48 | CC ---
CARDIAC CATHETERIZATION REPORT DATE OF SERVICE: 02/21/2018 PROCEDURE: Left heart catheterization and coronary angiography. PERFORMED BY: Dr. Capo Pritchard. Moderate conscious sedation time was 16 minutes. Patient was given Versed and Benadryl combination and his oxygen saturation, hemodynamics and EKG were monitored closely. CLINICAL INFORMATION: Mr. Marcin Griffiths is a 57-year-old gentleman who has a question of vasospastic angina seen by Dr. Sabrina Pritchard 2 years ago. Cardiac cath was unremarkable. He came into the hospital with episode of chest pain and after stabilizing him, he did not obtain relief with nitroglycerin. However, he was pain-free and after he was stabilized, he had a Lexiscan stress test which revealed inferior wall inferoapical reversible defect. Therefore was advised cardiac catheterization. Risks, benefits, options, rationale explained to the patient and family. PROCEDURE NOTE: Under local anesthesia and strict aseptic precautions, a 6-[place] introducer was placed in the right radial artery. Using an Ultimate 1 catheter I performed selective coronary angiography of the left coronary system. A JR4 catheter was used for the right coronary artery. The same catheter was used to check LV pressures. LV gram was not performed. The sheath was taken out and TR band applied as per protocol and saturation in the fingers of the right hand was 96%. The patient tolerated procedure well without complications. Results were discussed with the patient and family. Continued medical therapy with risk factor modification was advised. CARDIAC CATHETERIZATION FINDINGS: The left ventricle end-diastolic pressure was about 8 to 10 mmHg without any gradient across the aortic valve. CORONARY ANGIOGRAPHY FINDINGS: LEFT MAIN CORONARY ARTERY: Short patent disease-free vessel that bifurcates into LAD and circumflex. No significant disease in the left main coronary artery. LEFT ANTERIOR DESCENDING CORONARY ARTERY: This is a good caliber vessel extends along the anterior wall supplies a sizable amount of myocardium, has no significant obstructive disease. It gives off several septal and diagonal branches, has minor irregularities. LAD therefore is a relatively disease free vessel with minor irregularities and supplies a sizable amount of myocardium. LEFT POSTERIOR CIRCUMFLEX CORONARY ARTERY: Nondominant vessel gives off a single high obtuse marginal, continues distally as a posterolateral branch and a small groove branch. All these vessels have minor irregularities. No significant disease is noted. RIGHT CORONARY ARTERY: Dominant vessel no significant disease, gives off a large acute marginal branch in the midportion. Distally bifurcates into a larger PLV, smaller PDA. Has minor irregularities, no significant disease. LEFT VENTRICULOGRAM: This was not performed. FINAL IMPRESSION: This patient has a right dominant system, normal filling pressures. No significant obstructive coronary artery disease. RECOMMENDATION: Findings were discussed with the patient and family. I am recommending smoking cessation, to continue current medications and risk factor modification. Patient can be discharged later on today if he remains stable and follow up with his PCP and I will see him in the office on 02/24/2018 at 1:30 p.m. Advised to quit smoking. MMODL / IJN: [id number] /
--- NOTE | 2018-02-21 11:55 | LTR ---
February 21, 2018 Re: Marcin Griffiths Dear Dr. Powers: Thank you for the opportunity to participate in the care of Mr. Griffiths. I am pleased to report to you that he does not have any significant obstructive CAD. Continued medical therapy with risk factor modification and smoking cessation is advised. Thank you for your referral and please call for questions. With kindest regards. Sincerely yours, MD AMY Iverson / DEB: [id number] /
--- NOTE | 2018-02-21 11:57 | P.PN ---
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 previous medical history significant for hypertension and hypertensive cardiovascular disease, history of Prinzmetal angina, chronic tobacco use and dependence, history of the hyperlipidemia, rheumatoid arthritis, patient was walking when he suddenly developed to have a left-sided chest pain radiating to the jaw associated with severe mid epigastric pain , patient try to take a nitroglycerin he took one every 5 minutes without any help he ended up driving to work and he asked one of his coworker to bring him to the emergency department at [facility] he had a twelve-lead EKG did not show any evidence of acute of normalities, however he was found to have an elevated liver function tests including bilirubin with elevated lipase he had an ultrasound of the abdomen that showed hepatomegaly without evidence of dilated common bile duct suggestive of possible a passed common bile duct stone however the pancreatic duct was slightly at the upper limit of normal, patient was sitting up in bed that he was eating his dinner he had no evidence of pain at that time. However because of the presentation patient was admitted to the hospital for evaluation by cardiology he also need to be evaluated by a computed tomography scan of the abdomen and pelvis with contrast for further evaluation of the pancreatic area due to his pancreatitis. 02/20: Patient was evaluated this morning, he is noted to be sitting up in the bed eating breakfast. He reports that chest pain is better, he denies any shortness of breath, nausea, vomiting, or abdominal pain. Patient underwent Lexiscan and it showed pharmacological induced left ventricular myocardial ischemia, cardiology is on consult, recommendations for coronary angiography tomorrow. GI consult placed due to elevated pancreatic enzymes, they recommend to hold off on ERCP and repeat pancreatic enzymes in the morning. 02/21: Patient underwent left heart catheterization that was stable, [facility] of elevated CA-19-9 as well as pancreatic enzymes and liver function test. Objective - Vital Signs Vital signs: Vital Signs Temp 97.7 F 02/21/18 08:23 Pulse 58 L 02/21/18 08:23 Resp 18 02/21/18 08:23 BP 118/64 02/21/18 08:23 Pulse Ox 97 02/21/18 08:43 Intake & Output 02/20/18 02/21/18 02/21/18 18:59 06:59 18:59 Intake Total 660 1120 Output Total 400 Balance 260 1120 Weight 79.379 kg 78.7 kg Intake: Intake, IV Titration 640 Amount Sodium Chloride 0.9% 1, 640 000 ml In Empty Bag 1 bag @ 1 ML/KG/HR 79.37 mls/ hr IV .[id number] ONE Rx#: [id number] Oral 660 480 Output: Urine 400 Other: Voiding Method Toilet Toilet # Voids 1 1 # Bowel Movements 0 - Exam - Exam - Constitutional General appearance: average body habitus, no acute distress - EENT Eyes: anicteric sclerae, EOMI, PERRLA, no ptosis, no scleral icterus, normal appearance ENT: hearing grossly normal, NA/AT, normal oropharynx, no thrush Ears: bilateral: normal - Neck Neck: no lymphadenopathy, normal ROM, no rigidity, no stridor, no thyromegaly Carotids: bilateral: upstroke normal Thyroid: bilateral: normal size - Respiratory Respiratory: bilateral: diminished, wheezing, prolonged expiration, negative: dullness, rales, rhonchi - Cardiovascular Rhythm: regular Heart sounds: normal: S1, S2 Abnormal Heart Sounds: systolic murmur, no S3 Gallop - Gastrointestinal General gastrointestinal: normal bowel sounds, soft, tenderness (Epigastric area.), no umbilical hernia, no ventral hernia - Integumentary Integumentary: normal, normal turgor - Neurologic Neurologic: CNII-XII intact - Musculoskeletal Musculoskeletal: gait normal, strength equal bilaterally - Psychiatric Psychiatric: A&O x's 3, appropriate affect, intact judgment & insight - Labs CBC & Chem 7: 02/21/18 05:41 02/21/18 05:41 Labs: Abnormal Lab Results - Last 24 Hours (Table) 02/20/18 02/21/18 02/21/18 Range/Units 06:35 05:41 05:41 Chloride 108 H (98-107) mmol/L Glucose 129 H (74-99) mg/dL AST 77 H (17-59) U/L ALT 136 H (21-72) U/L Alkaline Phosphatase 654 H (38-126) U/L Total Protein 5.4 L (6.3-8.2) g/dL Albumin 2.7 L (3.5-5.0) g/dL Lipase 532 H (23-300) U/L CA 19-9 Antigen 49.4 H (0.0-34.9) U/mL Assessment and Plan Assessment: Assessment and Plan Plan: 1. Left-sided chest pain thought to be due to Prinzmetal angina. Continue Cardizem CD 240 mg orally once every day, check cardiac biomarkers 3, telemetry , aspirin 325 mg once every day, heparin drip, nitroglycerin, cardiology consultation. Lexiscan showed pharmacological induced left ventricular myocardial ischemia, plans for cardiac cath tomorrow. 2. Mid epigastric abdominal pain with elevated liver function tests and hepatomegaly with prominent pancreatic duct and pancreatitis. This seems to be a possible passed common bile duct stone even though the common bile duct stone even though the ultrasound that showed evidence of dilatation of the CBD, however because of the elevated liver function tests and bilirubin along with the pancreatitis this is has to be related to that however patient will need to go for a computed tomography scan of the abdomen with contrast for further evaluation this will be done the next 24 hours after repeating his CMP amylase and lipase if they continued to be persistently elevated. GI on consult recommends to hold off on ERCP and continue to monitor pancreatic enzymes, MRCP today 3. Hypertension and hypertensive cardiovascular disease. Continue Cardizem CD 240 mg orally once every day. 4. Hyperlipidemia. Lipid panel will be done. 5. Rheumatoid arthritis. Continue Arava 20 mg orally once every day hold off Enbrel for now. 6. Insomnia. Continue trazodone 150 mg at bedtime. 7. History of narcotic prescription use. Currently is on Suboxone 8. DVT prophylaxis. Continue heparin drip. 9. GI prophylaxis. Continue patient on PPI. 10. Home tomorrow morning. <Amy Trotter - Last Filed: 02/22/18 14:09> Objective - Vital Signs Vital signs: Vital Signs Temp 97.6 F 02/22/18 12:16 Pulse 59 L 02/22/18 12:16 Resp 18 02/22/18 12:16 BP 119/70 02/22/18 12:16 Pulse Ox 94 L 02/22/18 12:16 Intake & Output 02/21/18 02/22/18 02/22/18 18:59 06:59 18:59 Intake Total 100 360 Output Total 400 Balance -300 360 Intake: IV 100 Oral 360 Output: Urine 400 Other: Voiding Method Toilet Toilet Toilet # Voids 1 2 - Labs CBC & Chem 7: 02/22/18 05:59 02/22/18 05:59 Labs: Abnormal Lab Results - Last 24 Hours (Table) 02/22/18 02/22/18 Range/Units 05:59 05:59 Glucose 119 H (74-99) mg/dL Total Bilirubin 1.4 H (0.2-1.3) mg/dL AST 70 H (17-59) U/L ALT 130 H (21-72) U/L Alkaline Phosphatase 636 H (38-126) U/L Total Protein 5.3 L (6.3-8.2) g/dL Albumin 2.6 L (3.5-5.0) g/dL Lipase 659 H (23-300) U/L
--- NOTE | 2018-02-21 12:33 | ECHOF ---
Referral Reason:CAD, post Cath MEASUREMENTS -------- HEIGHT: 175.3 cm WEIGHT: 78.5 kg BP: 118/64 RVIDd: 2.8 cm (< 3.3) IVSd: 1.2 cm (0.6 - 1.1) LVIDd: 4.4 cm (3.9 - 5.3) LVPWd: 1.1 cm (0.6 - 1.1) IVSs: 1.8 cm LVIDs: 2.8 cm LVPWs: 1.8 cm LA Diam: 3.7 cm (2.7 - 3.8) LAESV Index (A-L): 28.39 ml/m Ao Diam: 3.2 cm (2.0 - 3.7) AV Cusp: 2.0 cm (1.5 - 2.6) MV EXCURSION: 13.883 mm (> 18.000) MV EF SLOPE: 95 mm/s (70 - 150) EPSS: 0.8 cm MV E Sabino: 1.09 m/s MV DecT: 206 ms MV A Sabino: 0.54 m/s MV E/A Ratio: 2.03 RAP: 5.00 mmHg RVSP: 21.56 mmHg FINDINGS -------- Resting bradycardia (HR<60bpm). This was a technically good study. The left ventricular size is normal. There is borderline concentric left ventricular hypertrophy. Overall left ventricular systolic function is normal with, an EF between 60 - 65 %. The right ventricle is normal in size. Normal LA size by volume 22+/-6 ml/m2. The right atrium is normal in size. The aortic valve is trileaflet and appears structurally normal. Mild mitral regurgitation is present. Mild tricuspid regurgitation present. Right ventricular systolic pressure is normal at < 35 mmHg. There is no pulmonic regurgitation present. The aortic root size is normal. Normal inferior vena cava with normal inspiratory collapse consistent with estimated right atrial pre ssure of 5 mmHg. There is no pericardial effusion. CONCLUSIONS -------- 1. Resting bradycardia (HR<60bpm). 2. This was a technically good study. 3. The left ventricular size is normal. 4. There is borderline concentric left ventricular hypertrophy. 5. Overall left ventricular systolic function is normal with, an EF between 60 - 65 %. 6. The right ventricle is normal in size. 7. Normal LA size by volume 22+/-6 ml/m2. 8. The right atrium is normal in size. 9. The aortic valve is trileaflet and appears structurally normal. 10. Mild mitral regurgitation is present. 11. Mild tricuspid regurgitation present. 12. Right ventricular systolic pressure is normal at < 35 mmHg. 13. There is no pulmonic regurgitation present. 14. The aortic root size is normal. 15. Normal inferior vena cava with normal inspiratory collapse consistent with estimated right atrial pressure of 5 mmHg. 16. There is no pericardial effusion. PERSONAL SECRETARY: Clau Ireland RDCS
[2018-02-21] MEDS: NALOXONE HCL SL SCH ×2 (14:27→21:33)
[2018-02-21] MEDS: [UNRECOGNIZED DRUG - OTHER] SL SCH ×2 (14:27→21:33)
[2018-02-21] MEDS: BUPRENORPHINE HCL SL SCH ×2 (14:27→21:33)
--- NOTE | 2018-02-21 20:18 | MR ---
EXAMINATION TYPE: MR MRCP DATE OF EXAM: 02/21/2018 COMPARISON: NONE HISTORY: Upper mid abd pain, night sweats, chest discomfort Standard multiplanar, multisequence MRI departmental protocol Multiplanar, multisequence images of the abdomen were acquired. FINDINGS: Liver shows no focal defect. Bile ducts are not dilated. Gallbladder is absent. Common bile duct measures up to 9 mm. I see no filling defects in the bile ducts. The pancreatic duct has normal size. There is no evidence of pancreatic mass. There is no ascites. Kidneys have normal size and con tour. There is no hydronephrosis. Spleen appears normal. Intrahepatic bile ducts appear normal. IMPRESSION: Normal MRCP exam. No dilated ducts or filling defects.
[2018-02-21] MEDS: GABAPENTIN 300 MG CAP PO SCH (21:16)
[2018-02-21] MEDS: traZODone HCL 50 MG TAB PO SCH (21:16)
[2018-02-22 06:33] LABS: Mean Platelet Volume 7.3; Platelet Count 238 k/uL (150-450)
[2018-02-22] MEDS: PANTOPRAZOLE 40 MG TABLET PO SCH (06:38)
[2018-02-22] MEDS: NICOTINE 21MG/24HR PATCH TRANSDERM SCH (06:38)
[2018-02-22] MEDS: METOPROLOL TARTRATE 25 MG TAB PO SCH ×2 (07:56→20:47)
[2018-02-22] MEDS: LORATADINE 10 MG TAB PO SCH (07:56)
[2018-02-22] MEDS: DILTIAZEM CD 240 MG CAP.ER.24H PO SCH (07:56)
[2018-02-22] MEDS: ASPIRIN 81 MG PO SCH (07:56)
[2018-02-22] MEDS: ATORVASTATIN 80 MG TAB PO SCH (07:56)
[2018-02-22] MEDS: LEFLUNOMIDE 20 MG TAB PO SCH (07:57)
[2018-02-22 08:58] LABS: ALT 130 U/L (21-72); AST 70 U/L (17-59); Albumin 2.6 g/dL (3.5-5.0); Alkaline Phosphatase 636 U/L (38-126); Anion Gap 7 mmol/L; Blood Urea Nitrogen 12 mg/dL (9-20); Calcium 8.4 mg/dL (8.4-10.2); Carbon Dioxide 26 mmol/L (22-30); Chloride 106 mmol/L (98-107); Glucose 119 mg/dL (74-99); Potassium 4.2 mmol/L (3.5-5.1); Sodium 139 mmol/L (137-145); Total Bilirubin 1.4 mg/dL (0.2-1.3); Total Protein 5.3 g/dL (6.3-8.2)
[2018-02-22] MEDS: NALOXONE HCL SL SCH ×2 (09:11→20:47)
[2018-02-22] MEDS: BUPRENORPHINE HCL SL SCH ×2 (09:11→20:47)
[2018-02-22] MEDS: [UNRECOGNIZED DRUG - OTHER] SL SCH ×2 (09:11→20:47)
--- NOTE | 2018-02-22 09:26 | PN ---
PROGRESS NOTE DATE OF SERVICE: 02/22/2018 The patient is a 57-year-old pleasant white male admitted to hospital with acute onset of severe epigastric and chest pain 2 days ago. He was noted to have acute elevation of serum transaminases with ALT and AST in the range of 200s and alkaline phosphatase at 635 and bilirubin of 1.1. He was also noted to have lipase that was up to 776. He also was noted to have severe chest pain. He underwent cardiac catheterization yesterday that showed mild coronary artery disease with no significant occlusion. The patient this morning is feeling better. Her abdominal pain has resolved. No chest pain. No nausea, no vomiting. PHYSICAL EXAMINATION: On physical examination, appears comfortable, no apparent distress. Vital signs are stable. Blood pressure 132/74, pulse is 60, temperature 98.2. HEENT examination unremarkable. Conjunctivae pink. Sclerae anicteric. Oral cavity, no lesions. NECK: No JVD or lymph node enlargement. CHEST: Clear to auscultation. HEART: Regular rate and rhythm. ABDOMEN: Soft. Bowel sounds are positive. No organomegaly. EXTREMITIES: No pedal edema. SKIN: No rashes. NEURO: Alert and oriented x3. No focal deficits. LABS: Labs from today are still pending. IMPRESSION: 1. Epigastric and chest pain of acute onset for the last 2 days duration, possibly related to retained common bile duct stone. Serum transaminases as of yesterday were gradually improving. Labs from this morning are still pending. CT of the abdomen did not show any evidence of biliary ductal dilation. He is status post gallbladder surgery for symptomatic gallstones 4 years ago. 2. Chest pain, status post cardiac catheterization yesterday, which revealed mild coronary artery disease. RECOMMENDATIONS: Await labs from this morning. Continue with a regular diet. If his serum transaminases have improved, he can be discharged home with an outpatient follow up in 2 to 3 weeks. Thank you for this consultation. MMODL / IJN: [id number] /
--- NOTE | 2018-02-22 11:19 | P.PN ---
Subjective Progress Note Date: 02/22/18 Principal diagnosis: Chest discomfort This is a pleasant 57-year-old gentleman who sees Dr. GLENIS Pritchard in the office as an outpatient with hypertension and dyslipidemia and history of smoking who presented to the hospital with chest discomfort and underwent myocardial perfusion imaging stress test which revealed ischemia because of that heart catheterization was recommended. The patient underwent a heart catheterization yesterday by Dr. GLENIS Pritchard and that revealed mild nonassertive coronary artery disease. I'll follow-up with him today, he denies having any chest pain or discomfort. He does have a good right radial pulse which is the access site for the heart catheterization. From a cardiac vascular standpoint of view the patient can be discharged home. Objective - Vital Signs Vital signs: Vital Signs Temp 97.7 F 02/22/18 08:00 Pulse 59 L 02/22/18 08:00 Resp 18 02/22/18 08:00 BP 126/65 02/22/18 08:00 Pulse Ox 94 L 02/22/18 08:00 Intake & Output 02/21/18 02/22/18 02/22/18 18:59 06:59 18:59 Intake Total 100 Output Total 400 Balance -300 Intake: IV 100 Output: Urine 400 Other: Voiding Method Toilet Toilet Toilet # Voids 1 2 - Constitutional General appearance: Present: no acute distress - Respiratory Respiratory: bilateral: CTA - Cardiovascular Rhythm: regular Heart sounds: normal: S1, S2 - Labs CBC & Chem 7: 02/22/18 05:59 02/22/18 05:59 Labs: Abnormal Lab Results - Last 24 Hours (Table) 02/22/18 02/22/18 Range/Units 05:59 05:59 Glucose 119 H (74-99) mg/dL Total Bilirubin 1.4 H (0.2-1.3) mg/dL AST 70 H (17-59) U/L ALT 130 H (21-72) U/L Alkaline Phosphatase 636 H (38-126) U/L Total Protein 5.3 L (6.3-8.2) g/dL Albumin 2.6 L (3.5-5.0) g/dL Lipase 659 H (23-300) U/L Assessment and Plan Assessment: Assessment #1 chest discomfort which has improved #2 significant history of smoking Plan #1 the patient underwent a heart catheterization revealed mild CAD #2 he can be discharged home.
--- NOTE | 2018-02-22 16:45 | P.PN ---
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 previous medical history significant for hypertension and hypertensive cardiovascular disease, history of Prinzmetal angina, chronic tobacco use and dependence, history of the hyperlipidemia, rheumatoid arthritis, patient was walking when he suddenly developed to have a left-sided chest pain radiating to the jaw associated with severe mid epigastric pain , patient try to take a nitroglycerin he took one every 5 minutes without any help he ended up driving to work and he asked one of his coworker to bring him to the emergency department at [facility] he had a twelve-lead EKG did not show any evidence of acute of normalities, however he was found to have an elevated liver function tests including bilirubin with elevated lipase he had an ultrasound of the abdomen that showed hepatomegaly without evidence of dilated common bile duct suggestive of possible a passed common bile duct stone however the pancreatic duct was slightly at the upper limit of normal, patient was sitting up in bed that he was eating his dinner he had no evidence of pain at that time. However because of the presentation patient was admitted to the hospital for evaluation by cardiology he also need to be evaluated by a computed tomography scan of the abdomen and pelvis with contrast for further evaluation of the pancreatic area due to his pancreatitis. 02/20: Patient was evaluated this morning, he is noted to be sitting up in the bed eating breakfast. He reports that chest pain is better, he denies any shortness of breath, nausea, vomiting, or abdominal pain. Patient underwent Lexiscan and it showed pharmacological induced left ventricular myocardial ischemia, cardiology is on consult, recommendations for coronary angiography tomorrow. GI consult placed due to elevated pancreatic enzymes, they recommend to hold off on ERCP and repeat pancreatic enzymes in the morning. 02/21: Patient underwent left heart catheterization that was stable, he is scheduled to go for MRCP [facility] this afternoon for further evaluation of elevated CA-19-9 as well as pancreatic enzymes and liver function test. 02/22: Patient underwent MRCP, with no significant abnormality, liver function tests is unchanged, no abdominal pain, no nausea, no vomiting, no jaundice. We' ll going to repeat the liver tests 1 more time in the morning, and if remains to be stable, will discharge at that time. Diet is tolerated, cardiac low-fat. Total bili of 1.4, alkaline phosphatase 636, AST 70, ALT 130 lipase 659 Objective - Vital Signs Vital signs: Vital Signs Temp 97.6 F 02/22/18 12:16 Pulse 59 L 02/22/18 12:16 Resp 18 02/22/18 12:16 BP 119/70 02/22/18 12:16 Pulse Ox 94 L 02/22/18 12:16 Intake & Output 02/21/18 02/22/18 02/22/18 18:59 06:59 18:59 Intake Total 100 360 Output Total 400 Balance -300 360 Intake: IV 100 Oral 360 Output: Urine 400 Other: Voiding Method Toilet Toilet Toilet # Voids 1 2 - Labs CBC & Chem 7: 02/22/18 05:59 02/22/18 05:59 Labs: Abnormal Lab Results - Last 24 Hours (Table) 02/22/18 02/22/18 Range/Units 05:59 05:59 Glucose 119 H (74-99) mg/dL Total Bilirubin 1.4 H (0.2-1.3) mg/dL AST 70 H (17-59) U/L ALT 130 H (21-72) U/L Alkaline Phosphatase 636 H (38-126) U/L Total Protein 5.3 L (6.3-8.2) g/dL Albumin 2.6 L (3.5-5.0) g/dL Lipase 659 H (23-300) U/L Assessment and Plan Plan: Plan: 1. Left-sided chest pain thought to be due to Prinzmetal angina. Continue Cardizem CD 240 mg orally once every day, check cardiac biomarkers 3, telemetry , aspirin 325 mg once every day, heparin drip, nitroglycerin, cardiology consultation. Lexiscan showed pharmacological induced left ventricular myocardial ischemia, plans for cardiac cath mild CAD without any significant coronary stenosis, cleared by cardiology for discharge 2. Mid epigastric abdominal pain with elevated liver function tests and hepatomegaly with prominent pancreatic duct and pancreatitis. This seems to be a possible passed common bile duct stone even though the common bile duct stone even though the ultrasound that showed evidence of dilatation of the CBD, however because of the elevated liver function tests and bilirubin along with the pancreatitis this is has to be related to that however patient will need to go for a computed tomography scan of the abdomen with contrast for further evaluation this will be done the next 24 hours after repeating his CMP amylase and lipase if they continued to be persistently elevated. GI on consult recommends to hold off on ERCP and continue to monitor pancreatic enzymes, MRCP today 3. Acute pancreatitis monitor lipase, continue low-fat diet, agents remains asymptomatic at this point GI following 4. Acute obstructive transaminitis secondary to possibility choledocholithiasis known history of cholecystectomy, GI following Hypertension and hypertensive cardiovascular disease. Continue Cardizem CD 240 mg orally once every day. 4. Hyperlipidemia. Lipid panel will be done. 5. Rheumatoid arthritis. Continue Arava 20 mg orally once every day hold off Enbrel for now. 6. Insomnia. Continue trazodone 150 mg at bedtime. 7. History of narcotic prescription use. Currently is on Suboxone 8. DVT prophylaxis. Continue heparin drip. 9. GI prophylaxis. Continue patient on PPI. 10. Home tomorrow morning.
[2018-02-22] MEDS: GABAPENTIN 300 MG CAP PO SCH (20:47)
[2018-02-22] MEDS: traZODone HCL 50 MG TAB PO SCH (20:47)
[2018-02-23] MEDS: NICOTINE 21MG/24HR PATCH TRANSDERM SCH (06:25)
[2018-02-23] MEDS: PANTOPRAZOLE 40 MG TABLET PO SCH (06:25)
[2018-02-23 06:43] LABS: ALT 139 U/L (21-72); AST 92 U/L (17-59); Albumin 2.8 g/dL (3.5-5.0); Alkaline Phosphatase 823 U/L (38-126); Anion Gap 9 mmol/L; Blood Urea Nitrogen 12 mg/dL (9-20); Calcium 8.6 mg/dL (8.4-10.2); Carbon Dioxide 27 mmol/L (22-30); Chloride 104 mmol/L (98-107); Glucose 115 mg/dL (74-99); Lipase 545 U/L (23-300); Potassium 4.4 mmol/L (3.5-5.1); Sodium 140 mmol/L (137-145); Total Bilirubin 1.9 mg/dL (0.2-1.3); Total Protein 5.6 g/dL (6.3-8.2)
[2018-02-23] MEDS: ASPIRIN 81 MG PO SCH (09:17)
[2018-02-23] MEDS: ATORVASTATIN 80 MG TAB PO SCH (09:17)
[2018-02-23] MEDS: DILTIAZEM CD 240 MG CAP.ER.24H PO SCH (09:17)
[2018-02-23] MEDS: LORATADINE 10 MG TAB PO SCH (09:17)
[2018-02-23] MEDS: LEFLUNOMIDE 20 MG TAB PO SCH (09:17)
--- NOTE | 2018-02-23 09:34 | CONS ---
CONSULTATION DATE OF SERVICE: 02/23/2018 REQUESTING PHYSICIAN: Dr. Trotter. HISTORY OF PRESENT ILLNESS: The patient is a 57 -year-old pleasant white male who was admitted to the hospital three days ago when he presented with severe chest pain and epigastric pain and elevated LFTs. He subsequently had a cardiac cath done and that was unremarkable. Because of clinical suspicion for a CBD stone, the patient did have an MRCP done yesterday and MRCP revealed normal common bile duct measuring 9 mm with no filling defects and the pancreatic duct also appeared normal. In the meantime, patient continues to remain asymptomatic. He denies any abdominal pain. Reports no nausea or vomiting. PHYSICAL EXAMINATION: Appears comfortable in no apparent distress. Vital signs stable. Blood pressure is 106/55, pulse 50, temperature 97.8. HEENT examination unremarkable. Conjunctivae pink. Sclerae anicteric. Oral cavity no lesions. Neck no jugular venous distention or lymph node enlargement. Chest was clear to auscultation. HEART: Regular rate and rhythm. ABDOMEN: Soft, nontender, nondistended. Bowel sounds are positive. No organomegaly. Extremities: No pedal edema. Skin no rashes. NEUROLOGIC: Alert and oriented x3. No focal deficits. LAB: Done today the T-bilirubin is up to 1.9, AST is 92, ALT is 139, alkaline phosphatase is 823, lipase is 545. Basic metabolic panel is within normal limits. IMPRESSION: The patient presents with epigastric and right upper quadrant and chest pain for the last 2 days duration and was noted to have mild elevation of serum transaminases and elevated alkaline phosphatase. He has remote history of gallbladder surgery for symptomatic gallstones done 4 years ago. Because of the clinical suspicion for a CBD stone, he underwent an MRCP yesterday that showed normal CBD with no ductal dilation. His serum transaminases improved, but again they started increasing and today, bilirubin is up to 1.9, alkaline phosphatase is 836. Though MRCP is completely negative, possibility of CBD stone still cannot be entirely excluded. Other causes of intrahepatic cholestasis needs to be considered. I reviewed all the medication lists and patient denies being on any new medications that were started recently. RECOMMENDATIONS: 1. We will repeat labs in the morning and follow them closely. 2. If they continue to progressively get worse, we will have to consider proceeding with an ERCP during this hospitalization. I briefly discussed with the patient about the plan and he is agreeable to it. Thank you for this consultation. AMY / DEB: [id number] /
[2018-02-23] MEDS: BUPRENORPHINE HCL SL SCH ×2 (11:19→21:29)
[2018-02-23] MEDS: NALOXONE HCL SL SCH ×2 (11:19→21:29)
[2018-02-23] MEDS: [UNRECOGNIZED DRUG - OTHER] SL SCH ×2 (11:19→21:29)
[2018-02-23 12:12] LABS: Appearance,Urine Clear (Clear); Bilirubin,Urine Negative (Negative); Blood,Urine Negative (Negative); Color,Urine Yellow; Glucose,Urine (UA) Negative (Negative); Ketones,Urine Negative (Negative); Leukocyte Esterase,Urine Negative (Negative); Nitrite,Urine Negative (Negative); PH, Urine 7.5 (5.0-8.0); Protein,Urine Negative (Negative); Specific Gravity,Urine 1.003 (1.001-1.035)
[2018-02-23] MEDS: METOPROLOL TARTRATE 25 MG TAB PO SCH (13:16)
--- NOTE | 2018-02-23 14:28 | P.PN ---
Subjective Progress Note Date: 02/23/18 Principal diagnosis: Chest discomfort This is a pleasant 57-year-old gentleman who sees Dr. GLENIS Pritchard in the office as an outpatient with hypertension and dyslipidemia and history of smoking who presented to the hospital with chest discomfort and underwent myocardial perfusion imaging stress test which revealed ischemia because of that heart catheterization was recommended. The patient underwent a heart catheterization yesterday by Dr. GLENIS Pritchard and that revealed mild nonassertive coronary artery disease. I'll follow-up with him today, he denies having any chest pain or discomfort. He was seen by the GI service and there is a suspicious that he might have a, bile duct stone. He is bradycardic and he is on Cardizem by mouth as well as metoprolol by mouth. I am going to stop the metoprolol by mouth. Objective - Vital Signs Vital signs: Vital Signs Temp 96.8 F L 02/23/18 08:00 Pulse 53 L 02/23/18 11:48 Resp 18 02/23/18 03:40 BP 135/68 02/23/18 11:48 Pulse Ox 93 L 02/23/18 11:48 Intake & Output 02/22/18 02/23/18 02/23/18 18:59 06:59 18:59 Intake Total 720 240 Output Total 500 Balance 720 -260 Weight 78.3 kg Intake: Oral 720 240 Output: Urine 500 Other: Voiding Method Toilet Toilet # Voids 2 2 - Constitutional General appearance: Present: no acute distress - Respiratory Respiratory: bilateral: CTA - Cardiovascular Rhythm: regular Heart sounds: normal: S1, S2 - Labs CBC & Chem 7: 02/22/18 05:59 02/23/18 06:09 Labs: Abnormal Lab Results - Last 24 Hours (Table) 02/23/18 Range/Units 06:09 Glucose 115 H (74-99) mg/dL Total Bilirubin 1.9 H (0.2-1.3) mg/dL AST 92 H (17-59) U/L ALT 139 H (21-72) U/L Alkaline Phosphatase 823 H (38-126) U/L Total Protein 5.6 L (6.3-8.2) g/dL Albumin 2.8 L (3.5-5.0) g/dL Lipase 545 H (23-300) U/L Assessment and Plan Assessment: Assessment #1 chest discomfort which has improved #2 significant history of smoking #3 sinus bradycardia #4 possible common bile duct stone Plan #1 the patient underwent a heart catheterization revealed mild CAD #2 DC the metoprolol and continue the Cardizem by mouth. #3 we will follow-up with the patient on when necessary case.
--- NOTE | 2018-02-23 17:10 | P.PN ---
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 previous medical history significant for hypertension and hypertensive cardiovascular disease, history of Prinzmetal angina, chronic tobacco use and dependence, history of the hyperlipidemia, rheumatoid arthritis, patient was walking when he suddenly developed to have a left-sided chest pain radiating to the jaw associated with severe mid epigastric pain , patient try to take a nitroglycerin he took one every 5 minutes without any help he ended up driving to work and he asked one of his coworker to bring him to the emergency department at [facility] he had a twelve-lead EKG did not show any evidence of acute of normalities, however he was found to have an elevated liver function tests including bilirubin with elevated lipase he had an ultrasound of the abdomen that showed hepatomegaly without evidence of dilated common bile duct suggestive of possible a passed common bile duct stone however the pancreatic duct was slightly at the upper limit of normal, patient was sitting up in bed that he was eating his dinner he had no evidence of pain at that time. However because of the presentation patient was admitted to the hospital for evaluation by cardiology he also need to be evaluated by a computed tomography scan of the abdomen and pelvis with contrast for further evaluation of the pancreatic area due to his pancreatitis. 02/20: Patient was evaluated this morning, he is noted to be sitting up in the bed eating breakfast. He reports that chest pain is better, he denies any shortness of breath, nausea, vomiting, or abdominal pain. Patient underwent Lexiscan and it showed pharmacological induced left ventricular myocardial ischemia, cardiology is on consult, recommendations for coronary angiography tomorrow. GI consult placed due to elevated pancreatic enzymes, they recommend to hold off on ERCP and repeat pancreatic enzymes in the morning. 02/21: Patient underwent left heart catheterization that was stable, he is scheduled to go for MRCP [facility] this afternoon for further evaluation of elevated CA-19-9 as well as pancreatic enzymes and liver function test. 02/22: Patient underwent MRCP, with no significant abnormality, liver function tests is unchanged, no abdominal pain, no nausea, no vomiting, no jaundice. We' ll going to repeat the liver tests 1 more time in the morning, and if remains to be stable, will discharge at that time. Diet is tolerated, cardiac low-fat. Total bili of 1.4, alkaline phosphatase 636, AST 70, ALT 130 lipase 659 02/23: Patient's liver function test is slightly higher with slight elevation of alkaline phosphatase and bilirubin, lipase is slightly higher, patient has left lower quadrant abdominal pain without any fever, patient is expected to undergo ERCP in the morning if labs would worsen, the MRCP failed to reveal any CBD or pancreatic duct obstruction or mass, monitor liver function tests, low-fat diet initiated rather than cardiac diet Objective - Vital Signs Vital signs: Vital Signs Temp 96.8 F L 02/23/18 08:00 Pulse 53 L 02/23/18 11:48 Resp 18 02/23/18 03:40 BP 135/68 02/23/18 11:48 Pulse Ox 93 L 02/23/18 11:48 Intake & Output 02/22/18 02/23/18 02/23/18 18:59 06:59 18:59 Intake Total 720 240 Output Total 500 Balance 720 -260 Weight 78.3 kg Intake: Oral 720 240 Output: Urine 500 Other: Voiding Method Toilet Toilet # Voids 2 2 - Constitutional General appearance: Present: cooperative, no acute distress - EENT Eyes: Present: anicteric sclerae, dentition normal, normal appearance ENT: Present: hearing grossly normal, normal oropharynx - Respiratory Respiratory: bilateral: CTA, negative: diminished, dullness, rales - Cardiovascular Rhythm: regular Heart sounds: normal: S1, S2 Abnormal Heart Sounds: Absent: systolic murmur, diastolic murmur, rub, S3 Gallop , S4 Gallop, click, other - Gastrointestinal General gastrointestinal: Present: soft Localized gastrointestinal: tender: LLQ - Integumentary Integumentary: Present: decreased turgor, normal - Neurologic Neurologic: Present: CNII-XII intact - Musculoskeletal Musculoskeletal: Present: gait normal - Psychiatric Psychiatric: Present: A&O x's 3, appropriate affect, intact judgment & insight - Labs CBC & Chem 7: 02/22/18 05:59 02/23/18 06:09 Labs: Abnormal Lab Results - Last 24 Hours (Table) 02/23/18 Range/Units 06:09 Glucose 115 H (74-99) mg/dL Total Bilirubin 1.9 H (0.2-1.3) mg/dL AST 92 H (17-59) U/L ALT 139 H (21-72) U/L Alkaline Phosphatase 823 H (38-126) U/L Total Protein 5.6 L (6.3-8.2) g/dL Albumin 2.8 L (3.5-5.0) g/dL Lipase 545 H (23-300) U/L Assessment and Plan Plan: Plan: 1. Left-sided chest pain thought to be due to Prinzmetal angina. Continue Cardizem CD 240 mg orally once every day, check cardiac biomarkers 3, telemetry , aspirin 325 mg once every day, heparin drip, nitroglycerin, cardiology consultation. Lexiscan showed pharmacological induced left ventricular myocardial ischemia, plans for cardiac cath mild CAD without any significant coronary stenosis, cleared by cardiology for discharge 2. Mid epigastric abdominal pain with elevated liver function tests and hepatomegaly with prominent pancreatic duct and pancreatitis. This seems to be a possible passed common bile duct stone even though the common bile duct stone even though the ultrasound that showed evidence of dilatation of the CBD, however because of the elevated liver function tests and bilirubin along with the pancreatitis this is has to be related to that however patient will need to go for a computed tomography scan of the abdomen with contrast for further evaluation this will be done the next 24 hours after repeating his CMP amylase and lipase if they continued to be persistently elevated. GI on consult recommends to hold off on ERCP and continue to monitor pancreatic enzymes, MRCP failed to reveal any CBD stone or pancreatic stone, ERCP anticipated to be done on if liver function tests worsen 3. Acute pancreatitis monitor lipase, continue low-fat diet, agents remains asymptomatic at this point GI following 4. Acute obstructive transaminitis secondary to possibility choledocholithiasis known history of cholecystectomy, GI following Hypertension and hypertensive cardiovascular disease. Continue Cardizem CD 240 mg orally once every day. 4. Hyperlipidemia. Lipid panel will be done. 5. Rheumatoid arthritis. Continue Arava 20 mg orally once every day hold off Enbrel for now. 6. Insomnia. Continue trazodone 150 mg at bedtime. 7. History of narcotic prescription use. Currently is on Suboxone 8. DVT prophylaxis. Continue heparin drip. 9. GI prophylaxis. Continue patient on PPI. 10. Home tomorrow morning.
[2018-02-23] MEDS: traZODone HCL 50 MG TAB PO SCH (21:28)
[2018-02-23] MEDS: GABAPENTIN 300 MG CAP PO SCH (21:29)
[2018-02-23] MEDS: MELATONIN 5 MG TABLET PO SCH (21:52)
[2018-02-24 10:00] LABS: Basophils % (A) 0 %; Eosinophils # (A) 0.1 k/uL (0-0.7); Eosinophils % (A) 2 %; HGB 12.9 gm/dL (13.0-17.5); Hypochromasia Slight; Lymphocytes # (A) 1.1 k/uL (1.0-4.8); Lymphocytes % (A) 16 %; MCH 28.7 pg (25.0-35.0); MCHC 31.6 g/dL (31.0-37.0); MCV 90.8 fL (80.0-100.0); Mean Platelet Volume 8.8; Monocytes # (A) 0.7 k/uL (0-1.0); Monocytes % (A) 10 %; Neutrophils # (A) 4.6 k/uL (1.3-7.7); Neutrophils % (A) 69 %; Platelet Count 229 k/uL (150-450); RBC 4.51 m/uL (4.30-5.90); RDW 14.2 % (11.5-15.5); WBC 6.6 k/uL (3.8-10.6)
[2018-02-24 10:08] LABS: ALT 134 U/L (21-72); AST 74 U/L (17-59); Albumin 2.8 g/dL (3.5-5.0); Alkaline Phosphatase 907 U/L (38-126); Anion Gap 10 mmol/L; Blood Urea Nitrogen 12 mg/dL (9-20); Calcium 8.7 mg/dL (8.4-10.2); Carbon Dioxide 27 mmol/L (22-30); Chloride 102 mmol/L (98-107); Glucose 156 mg/dL (74-99); Potassium 4.3 mmol/L (3.5-5.1); Sodium 139 mmol/L (137-145); Total Bilirubin 1.9 mg/dL (0.2-1.3); Total Protein 5.9 g/dL (6.3-8.2)
[2018-02-24 11:59] LABS: Glucose,Whole Blood 115 mg/dL (75-99)
[2018-02-24] MEDS: DILTIAZEM CD 240 MG CAP.ER.24H PO SCH (12:45)
[2018-02-24] MEDS: ATORVASTATIN 80 MG TAB PO SCH (13:09)
[2018-02-24] MEDS: PANTOPRAZOLE 40 MG TABLET PO SCH (13:09)
[2018-02-24] MEDS: NALOXONE HCL SL SCH ×2 (13:09→21:08)
[2018-02-24] MEDS: [UNRECOGNIZED DRUG - OTHER] SL SCH ×2 (13:09→21:08)
[2018-02-24] MEDS: BUPRENORPHINE HCL SL SCH ×2 (13:09→21:08)
[2018-02-24] MEDS: ASPIRIN 81 MG PO SCH (13:09)
[2018-02-24] MEDS: LORATADINE 10 MG TAB PO SCH (13:10)
[2018-02-24] MEDS: LEFLUNOMIDE 20 MG TAB PO SCH (13:10)
[2018-02-24] MEDS: NICOTINE 21MG/24HR PATCH TRANSDERM SCH (13:10)
--- NOTE | 2018-02-24 13:34 | P.PN ---
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 previous medical history significant for hypertension and hypertensive cardiovascular disease, history of Prinzmetal angina, chronic tobacco use and dependence, history of the hyperlipidemia, rheumatoid arthritis, patient was walking when he suddenly developed to have a left-sided chest pain radiating to the jaw associated with severe mid epigastric pain , patient try to take a nitroglycerin he took one every 5 minutes without any help he ended up driving to work and he asked one of his coworker to bring him to the emergency department at [facility] he had a twelve-lead EKG did not show any evidence of acute of normalities, however he was found to have an elevated liver function tests including bilirubin with elevated lipase he had an ultrasound of the abdomen that showed hepatomegaly without evidence of dilated common bile duct suggestive of possible a passed common bile duct stone however the pancreatic duct was slightly at the upper limit of normal, patient was sitting up in bed that he was eating his dinner he had no evidence of pain at that time. However because of the presentation patient was admitted to the hospital for evaluation by cardiology he also need to be evaluated by a computed tomography scan of the abdomen and pelvis with contrast for further evaluation of the pancreatic area due to his pancreatitis. 02/20: Patient was evaluated this morning, he is noted to be sitting up in the bed eating breakfast. He reports that chest pain is better, he denies any shortness of breath, nausea, vomiting, or abdominal pain. Patient underwent Lexiscan and it showed pharmacological induced left ventricular myocardial ischemia, cardiology is on consult, recommendations for coronary angiography tomorrow. GI consult placed due to elevated pancreatic enzymes, they recommend to hold off on ERCP and repeat pancreatic enzymes in the morning. 02/21: Patient underwent left heart catheterization that was stable, he is scheduled to go for MRCP [facility] this afternoon for further evaluation of elevated CA-19-9 as well as pancreatic enzymes and liver function test. 02/22: Patient underwent MRCP, with no significant abnormality, liver function tests is unchanged, no abdominal pain, no nausea, no vomiting, no jaundice. We' ll going to repeat the liver tests 1 more time in the morning, and if remains to be stable, will discharge at that time. Diet is tolerated, cardiac low-fat. Total bili of 1.4, alkaline phosphatase 636, AST 70, ALT 130 lipase 659 7/: Patient's liver function test is slightly higher with slight elevation of alkaline phosphatase and bilirubin, lipase is slightly higher, patient has left lower quadrant abdominal pain without any fever, patient is expected to undergo ERCP in the morning if labs would worsen, the MRCP failed to reveal any CBD or pancreatic duct obstruction or mass, monitor liver function tests, low-fat diet initiated rather than cardiac diet 02/24: Patient evaluated today, he denies any chest pain or discomfort. He was noted to be a little bit bradycardic in the 40s, metoprolol was discontinued yesterday. Heart rate now running in the 50s, he denies any dizziness. LFTs and lipase continue to be elevated. He is scheduled for ERCP today. Objective - Vital Signs Vital signs: Vital Signs Temp 97.6 F 02/24/18 08:00 Pulse 53 L 02/24/18 08:00 Resp 16 02/24/18 08:00 BP 111/57 02/24/18 08:00 Pulse Ox 94 L 02/24/18 08:00 Intake & Output 02/23/18 02/24/18 02/24/18 18:59 06:59 18:59 Intake Total 822 1610 10 Output Total 1000 200 Balance -178 1610 -190 Intake: IV 50 10 Invasive Line 1 40 Invasive Line 2 10 10 Oral 822 1560 Output: Urine 1000 200 Other: Voiding Method Toilet # Voids 2 - Exam - Constitutional General appearance: average body habitus, no acute distress - EENT Eyes: anicteric sclerae, EOMI, PERRLA, no ptosis, no scleral icterus, normal appearance ENT: hearing grossly normal, NA/AT, normal oropharynx, no thrush Ears: bilateral: normal - Neck Neck: no lymphadenopathy, normal ROM, no rigidity, no stridor, no thyromegaly Carotids: bilateral: upstroke normal Thyroid: bilateral: normal size - Respiratory Respiratory: bilateral: diminished, wheezing, prolonged expiration, negative: dullness, rales, rhonchi - Cardiovascular Rhythm: regular Heart sounds: normal: S1, S2 Abnormal Heart Sounds: systolic murmur, no S3 Gallop - Gastrointestinal General gastrointestinal: normal bowel sounds, soft, tenderness (Epigastric area.), no umbilical hernia, no ventral hernia - Integumentary Integumentary: normal, normal turgor - Neurologic Neurologic: CNII-XII intact - Musculoskeletal Musculoskeletal: gait normal, strength equal bilaterally - Psychiatric Psychiatric: A&O x's 3, appropriate affect, intact judgment & insight - Labs CBC & Chem 7: 02/24/18 05:30 02/24/18 05:30 Labs: Abnormal Lab Results - Last 24 Hours (Table) 02/24/18 Range/Units 05:30 Lipase 571 H (23-300) U/L Microbiology - Last 24 Hours (Table) 02/23/18 11:45 Urine Culture - Preliminary Urine,Clean Catch Assessment and Plan Plan: 1. Left-sided chest pain thought to be due to Prinzmetal angina. Continue Cardizem CD 240 mg orally once every day, check cardiac biomarkers 3, telemetry , aspirin 325 mg once every day, heparin drip, nitroglycerin, cardiology consultation. Lexiscan showed pharmacological induced left ventricular myocardial ischemia, plans for cardiac cath mild CAD without any significant coronary stenosis, cleared by cardiology for discharge 2. Mid epigastric abdominal pain with elevated liver function tests and hepatomegaly with prominent pancreatic duct and pancreatitis. This seems to be a possible passed common bile duct stone even though the common bile duct stone even though the ultrasound that showed evidence of dilatation of the CBD, however because of the elevated liver function tests and bilirubin along with the pancreatitis this is has to be related to that however patient will need to go for a computed tomography scan of the abdomen with contrast for further evaluation this will be done the next 24 hours after repeating his CMP amylase and lipase if they continued to be persistently elevated. GI on consult recommends to hold off on ERCP and continue to monitor pancreatic enzymes, MRCP failed to reveal any CBD stone or pancreatic stone, ERCP pending 3. Acute pancreatitis monitor lipase, continue low-fat diet, agents remains asymptomatic at this point GI following 4. Acute obstructive transaminitis secondary to possibility choledocholithiasis known history of cholecystectomy, GI following 5. Hypertension and hypertensive cardiovascular disease. Continue Cardizem CD 240 mg orally once every day. 6. Hyperlipidemia. Lipid panel will be done. 7. Rheumatoid arthritis. Continue Arava 20 mg orally once every day hold off Enbrel for now. 8. Insomnia. Continue trazodone 150 mg at bedtime. 9. History of narcotic prescription use. Currently is on Suboxone 10. DVT prophylaxis. Continue heparin drip. 11. GI prophylaxis. Continue patient on PPI. The above impression and plan of care have been discussed and directed by signing physician. Amber Marr nurse practitioner acting as scribe for signing physician.
[2018-02-24] MEDS: traZODone HCL 50 MG TAB PO SCH (21:08)
[2018-02-24] MEDS: MELATONIN 5 MG TABLET PO SCH (21:08)
[2018-02-24] MEDS: GABAPENTIN 300 MG CAP PO SCH (21:09)
[2018-02-25] MEDS: PANTOPRAZOLE 40 MG TABLET PO SCH (07:03)
[2018-02-25 07:20] LABS: ALT 144 U/L (21-72); AST 108 U/L (17-59); Albumin 3.1 g/dL (3.5-5.0); Alkaline Phosphatase 994 U/L (38-126); Amylase 61 U/L (30-110); Anion Gap 9 mmol/L; Blood Urea Nitrogen 13 mg/dL (9-20); Calcium 8.9 mg/dL (8.4-10.2); Carbon Dioxide 25 mmol/L (22-30); Chloride 105 mmol/L (98-107); Glucose 143 mg/dL (74-99); Potassium 4.6 mmol/L (3.5-5.1); Sodium 139 mmol/L (137-145); Total Bilirubin 1.6 mg/dL (0.2-1.3); Total Protein 6.2 g/dL (6.3-8.2)
[2018-02-25] MEDS: ATORVASTATIN 80 MG TAB PO SCH (08:16)
[2018-02-25] MEDS: NICOTINE 21MG/24HR PATCH TRANSDERM SCH ×2 (08:16→08:19)
[2018-02-25] MEDS: ASPIRIN 81 MG PO SCH (08:16)
[2018-02-25] MEDS: DILTIAZEM CD 120 MG CAP.ER.24H PO SCH (08:16)
[2018-02-25] MEDS: LEFLUNOMIDE 20 MG TAB PO SCH (08:16)
[2018-02-25] MEDS: LORATADINE 10 MG TAB PO SCH (08:16)
[2018-02-25] MEDS: BUPRENORPHINE HCL SL SCH ×2 (09:38→20:56)
[2018-02-25] MEDS: [UNRECOGNIZED DRUG - OTHER] SL SCH ×2 (09:38→20:56)
[2018-02-25] MEDS: NALOXONE HCL SL SCH ×2 (09:38→20:56)
[2018-02-25] MEDS ORDERED: LEVOFLOXACIN 750MG-D5W PMX 750 MG in DEXTROSE/WATER 1 150ML.BAG IVPB STA (10:08)
[2018-02-25] MEDS ORDERED: INDOMETHACIN 50MG SUPPOSITORY RECTAL ONE (10:09)
--- NOTE | 2018-02-25 12:15 | P.PN ---
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 previous medical history significant for hypertension and hypertensive cardiovascular disease, history of Prinzmetal angina, chronic tobacco use and dependence, history of the hyperlipidemia, rheumatoid arthritis, patient was walking when he suddenly developed to have a left-sided chest pain radiating to the jaw associated with severe mid epigastric pain , patient try to take a nitroglycerin he took one every 5 minutes without any help he ended up driving to work and he asked one of his coworker to bring him to the emergency department at [facility] he had a twelve-lead EKG did not show any evidence of acute of normalities, however he was found to have an elevated liver function tests including bilirubin with elevated lipase he had an ultrasound of the abdomen that showed hepatomegaly without evidence of dilated common bile duct suggestive of possible a passed common bile duct stone however the pancreatic duct was slightly at the upper limit of normal, patient was sitting up in bed that he was eating his dinner he had no evidence of pain at that time. However because of the presentation patient was admitted to the hospital for evaluation by cardiology he also need to be evaluated by a computed tomography scan of the abdomen and pelvis with contrast for further evaluation of the pancreatic area due to his pancreatitis. 02/20: Patient was evaluated this morning, he is noted to be sitting up in the bed eating breakfast. He reports that chest pain is better, he denies any shortness of breath, nausea, vomiting, or abdominal pain. Patient underwent Lexiscan and it showed pharmacological induced left ventricular myocardial ischemia, cardiology is on consult, recommendations for coronary angiography tomorrow. GI consult placed due to elevated pancreatic enzymes, they recommend to hold off on ERCP and repeat pancreatic enzymes in the morning. 02/21: Patient underwent left heart catheterization that was stable, he is scheduled to go for MRCP [facility] this afternoon for further evaluation of elevated CA-19-9 as well as pancreatic enzymes and liver function test. 02/22: Patient underwent MRCP, with no significant abnormality, liver function tests is unchanged, no abdominal pain, no nausea, no vomiting, no jaundice. We' ll going to repeat the liver tests 1 more time in the morning, and if remains to be stable, will discharge at that time. Diet is tolerated, cardiac low-fat. Total bili of 1.4, alkaline phosphatase 636, AST 70, ALT 130 lipase 659 7/: Patient's liver function test is slightly higher with slight elevation of alkaline phosphatase and bilirubin, lipase is slightly higher, patient has left lower quadrant abdominal pain without any fever, patient is expected to undergo ERCP in the morning if labs would worsen, the MRCP failed to reveal any CBD or pancreatic duct obstruction or mass, monitor liver function tests, low-fat diet initiated rather than cardiac diet 02/24: Patient evaluated today, he denies any chest pain or discomfort. He was noted to be a little bit bradycardic in the 40s, metoprolol was discontinued yesterday. Heart rate now running in the 50s, he denies any dizziness. LFTs and lipase continue to be elevated. He is scheduled for ERCP today. 02/25: Patient reports he is feeling well today. He did not go for the ERCP yesterday, it is planned for later today. He denies any abdominal pain, nausea, or vomiting. Lipase and LFTs are still elevated. He is not having any chest pain , dizziness, or shortness of breath. He has been ambulating in the hallways without difficulty. He is still a little bradycardic in the low 50's but he is asymptomatic. Will be possible discharge in the morning after ERCP. Objective - Vital Signs Vital signs: Vital Signs Temp 97.5 F L 02/25/18 04:00 Pulse 55 L 02/25/18 04:00 Resp 16 02/25/18 04:00 BP 117/56 02/25/18 04:00 Pulse Ox 93 L 02/25/18 08:53 Intake & Output 02/24/18 02/25/18 02/25/18 18:59 06:59 18:59 Intake Total 10 300 Output Total 200 200 Balance -190 100 Weight 76.3 kg Intake: IV 10 Invasive Line 2 10 Oral 300 Output: Urine 200 200 Other: Voiding Method Toilet Toilet # Voids 2 1 - Exam - Constitutional General appearance: average body habitus, no acute distress - EENT Eyes: anicteric sclerae, EOMI, PERRLA, no ptosis, no scleral icterus, normal appearance ENT: hearing grossly normal, NA/AT, normal oropharynx, no thrush Ears: bilateral: normal - Neck Neck: no lymphadenopathy, normal ROM, no rigidity, no stridor, no thyromegaly Carotids: bilateral: upstroke normal Thyroid: bilateral: normal size - Respiratory Respiratory: bilateral: diminished, wheezing, prolonged expiration, negative: dullness, rales, rhonchi - Cardiovascular Rhythm: regular Heart sounds: normal: S1, S2 Abnormal Heart Sounds: systolic murmur, no S3 Gallop - Gastrointestinal General gastrointestinal: normal bowel sounds, soft, tenderness, no umbilical hernia, no ventral hernia - Integumentary Integumentary: normal, normal turgor - Neurologic Neurologic: CNII-XII intact - Musculoskeletal Musculoskeletal: gait normal, strength equal bilaterally - Psychiatric Psychiatric: A&O x's 3, appropriate affect, intact judgment & insight - Labs CBC & Chem 7: 02/24/18 05:30 02/25/18 06:25 Labs: Abnormal Lab Results - Last 24 Hours (Table) 02/24/18 02/24/18 02/24/18 Range/Units 05:30 05:30 11:50 Hgb 12.9 L (13.0-17.5) gm/dL Glucose 156 H (74-99) mg/dL POC Glucose (mg/dL) 115 H (75-99) mg/dL Total Bilirubin 1.9 H (0.2-1.3) mg/dL AST 74 H (17-59) U/L ALT 134 H (21-72) U/L Alkaline Phosphatase 907 H (38-126) U/L Total Protein 5.9 L (6.3-8.2) g/dL Albumin 2.8 L (3.5-5.0) g/dL Lipase (23-300) U/L 02/25/18 02/25/18 Range/Units 06:25 06:25 Hgb (13.0-17.5) gm/dL Glucose 143 H (74-99) mg/dL POC Glucose (mg/dL) (75-99) mg/dL Total Bilirubin 1.6 H (0.2-1.3) mg/dL AST 108 H (17-59) U/L ALT 144 H (21-72) U/L Alkaline Phosphatase 994 H (38-126) U/L Total Protein 6.2 L (6.3-8.2) g/dL Albumin 3.1 L (3.5-5.0) g/dL Lipase 496 H (23-300) U/L Microbiology - Last 24 Hours (Table) 02/23/18 11:45 Urine Culture - Final Urine,Clean Catch Assessment and Plan Plan: 1. Left-sided chest pain thought to be due to Prinzmetal angina. Continue Cardizem CD 240 mg orally once every day, check cardiac biomarkers 3, telemetry , aspirin 325 mg once every day, heparin drip, nitroglycerin, cardiology consultation. Lexiscan showed pharmacological induced left ventricular myocardial ischemia, plans for cardiac cath mild CAD without any significant coronary stenosis, cleared by cardiology for discharge 2. Mid epigastric abdominal pain with elevated liver function tests and hepatomegaly with prominent pancreatic duct and pancreatitis. This seems to be a possible passed common bile duct stone even though the common bile duct stone even though the ultrasound that showed evidence of dilatation of the CBD, however because of the elevated liver function tests and bilirubin along with the pancreatitis this is has to be related to that however patient will need to go for a computed tomography scan of the abdomen with contrast for further evaluation this will be done the next 24 hours after repeating his CMP amylase and lipase if they continued to be persistently elevated. GI on consult recommends to hold off on ERCP and continue to monitor pancreatic enzymes, MRCP failed to reveal any CBD stone or pancreatic stone, ERCP pending 3. Acute pancreatitis monitor lipase, continue low-fat diet, agents remains asymptomatic at this point GI following 4. Acute obstructive transaminitis secondary to possibility choledocholithiasis known history of cholecystectomy, GI following 5. Hypertension and hypertensive cardiovascular disease. Continue Cardizem CD 240 mg orally once every day. 6. Hyperlipidemia. Lipid panel will be done. 7. Rheumatoid arthritis. Continue Arava 20 mg orally once every day hold off Enbrel for now. 8. Insomnia. Continue trazodone 150 mg at bedtime. 9. History of narcotic prescription use. Currently is on Suboxone 10. DVT prophylaxis. Continue SED's and ambulation 11. GI prophylaxis. Continue patient on PPI. The above impression and plan of care have been discussed and directed by signing physician. Amber Marr nurse practitioner acting as scribe for signing physician.
[2018-02-25] MEDS ORDERED: KETAMINE 10 MG/ML 20 ML VIAL ONE (14:13)
[2018-02-25] MEDS ORDERED: GLUCAGON 1 MG/ML VIAL ONE (14:13)
[2018-02-25] MEDS ORDERED: PROPOFOL 10 MG/ML 20 ML VIAL IV ONE (14:13)
[2018-02-25] MEDS ORDERED: IV FLUID CONTINUATION 450 ML IV ONE (14:14)
[2018-02-25] MEDS ORDERED: IOPAMIDOL-300 50ML BTL INJ ONE (14:46)
--- NOTE | 2018-02-25 16:21 | FL ---
EXAMINATION TYPE: FL ERCP biliary duct only DATE OF EXAM: 02/25/2018 COMPARISON: NONE HISTORY: Common bile duct stone Fluoroscopy support supplied to the referring clinician. See dictated report from gastroenterology, 4 minutes 44 seconds fluoroscopy time supplied, 2 intraoperative C-arm images document the procedure
[2018-02-25] MEDS: traZODone HCL 50 MG TAB PO SCH (20:50)
[2018-02-25] MEDS: MELATONIN 5 MG TABLET PO SCH (20:50)
[2018-02-25] MEDS: GABAPENTIN 300 MG CAP PO SCH (20:51)
[2018-02-26 06:20] LABS: Basophils % (A) 0 %; Eosinophils # (A) 0.1 k/uL (0-0.7); Eosinophils % (A) 1 %; HCT 44.6 % (39.0-53.0); HGB 13.8 gm/dL (13.0-17.5); Hypochromasia Slight; Lymphocytes # (A) 1.3 k/uL (1.0-4.8); Lymphocytes % (A) 18 %; MCH 27.9 pg (25.0-35.0); MCHC 30.9 g/dL (31.0-37.0); MCV 90.2 fL (80.0-100.0); Mean Platelet Volume 7.9; Monocytes # (A) 0.9 k/uL (0-1.0); Monocytes % (A) 13 %; Neutrophils # (A) 4.6 k/uL (1.3-7.7); Neutrophils % (A) 64 %; Platelet Count 246 k/uL (150-450); RBC 4.94 m/uL (4.30-5.90); RDW 14.1 % (11.5-15.5); WBC 7.1 k/uL (3.8-10.6)
[2018-02-26] MEDS: PANTOPRAZOLE 40 MG TABLET PO SCH (06:21)
[2018-02-26 06:37] LABS: ALT 135 U/L (21-72); AST 83 U/L (17-59); Albumin 3.1 g/dL (3.5-5.0); Alkaline Phosphatase 995 U/L (38-126); Anion Gap 9 mmol/L; Blood Urea Nitrogen 17 mg/dL (9-20); Calcium 9.2 mg/dL (8.4-10.2); Carbon Dioxide 29 mmol/L (22-30); Chloride 103 mmol/L (98-107); Glucose 220 mg/dL (74-99); Lipase 425 U/L (23-300); Sodium 141 mmol/L (137-145); Total Bilirubin 1.4 mg/dL (0.2-1.3); Total Protein 6.2 g/dL (6.3-8.2)
[2018-02-26 07:52] VITALS: BP 106/58; PULSE 50; RESP 18; TEMP 97.4
[2018-02-26] MEDS: ATORVASTATIN 80 MG TAB PO SCH (08:18)
[2018-02-26] MEDS: ASPIRIN 81 MG PO SCH (08:18)
[2018-02-26] MEDS: NALOXONE HCL SL SCH (08:18)
[2018-02-26] MEDS: [UNRECOGNIZED DRUG - OTHER] SL SCH (08:18)
[2018-02-26] MEDS: LEFLUNOMIDE 20 MG TAB PO SCH (08:18)
[2018-02-26] MEDS: BUPRENORPHINE HCL SL SCH (08:18)
[2018-02-26] MEDS: DILTIAZEM CD 120 MG CAP.ER.24H PO SCH (08:18)
[2018-02-26] MEDS: LORATADINE 10 MG TAB PO SCH (08:18)
[2018-02-26] MEDS: NICOTINE 21MG/24HR PATCH TRANSDERM SCH (08:19)
--- NOTE | 2018-02-26 10:57 | P.PCN ---
Date of Procedure: 02/25/18 Procedure(s) Performed: Procedure: Endoscopic retrograde cholangiopancreatography ERCP with sphincterotomy and passing of the 8.5 mm balloon catheter across the sphincterotomy site fully inflated. Preoperative diagnosis: Abdominal pains and abnormal liver chemistries and suspected microlithiasis. Postoperative diagnosis: 1. Slightly dilated common bile duct with filling defect distally consistent with common bile duct stone. 2.Successful sphincterotomy with passing of the 8.5 mm balloon catheter across the sphincterotomy site fully inflated. 3. Normal Pancreatic duct. Preparation sedation: Was provided by anesthesia. Brief clinical history: The patient is a 57-year-old male with a history of cholelithiasis S/P cholecystectomy 4-5 years ago, remote EtOH abuse quit 22 years ago, hypertension, hypertensive cardiovascular disease Prinzmetal angina, nicotine cigarette dependency, RA was admitted with acute midsternal left-sided chest pain as well as epigastric pain radiating to his left arm up to his jaw that started around noon the day before admission. He had a previous incident of this type of pain a week prior but not as intense. Also, he reported his urine being more dark in color over the last week. Admission white count 6.9. Hemoglobin 12.7. INR 1.0. Total bilirubin 1.5. AST 89. ALT 167. AP with 696. Triglycerides 136. Lipase 596 increased to 776. Total bilirubin improved 1.1. AST 98. ALT 159. AP 635. Troponin 3 less than 0.012. The patient had the MRCP initially, however, because of the persistent abnormalities in his liver enzymes this evaluation was planned for suspected choledocholithiasis or microlithiasis. The details as summarized in the history and physical and dictated consultations and progress notes. Procedure: With the patient in the prone position and after informed consent and adequate sedation, I passed the Olympus video duodenoscope down the esophagus into the stomach then passed it through the pylorus into the duodenum and brought the papilla into view. Initial cannulation and injection with dye resulted in opacification of the pancreatic duct which appeared normal. Subsequently, I was able to selectively cannulate and inject dye in the common bile duct and biliary tree. There was a filling defect in the distal common bile duct raising the possibility of common bile duct stone. The common bile duct was somewhat dilated as well. I, therefore, proceeded to exchange the catheter for a sphincterotome over a guidewire and performed adequate sphincterotomy. After that, the balloon catheter was introduced to the proximal common bile duct and was inflated to 8.5 mm and was withdrawn across the sphincterotomy site fully inflated. I did not see a stone come through after this semi-blind maneuver of withdrawing the balloon. The patient tolerated the procedure well and did not have any immediate complications. Plan: The patient will be allowed liquid diet to be advanced as tolerated. Will repeat his labs in the morning and further plans will be made based on his course.
== END 2018-02-26 11:26 | disposition home or self-care (01) | DRG 393 ==
LOC: EC 13:31 → 3OBS 16:10 → OBSVTOIN 02-20 10:41 → 6SEL 02-20 14:26
PROVIDERS: ADMIT Internal Medicine; ATTEND Internal Medicine
PROC: 4A023N7 Measurement of Cardiac Sampling and Pressure, Left Heart, Percutaneous Approach (ICD-10-PCS; 2018-02-21)
PROC: B2111ZZ Fluoroscopy of Multiple Coronary Arteries using Low Osmolar Contrast (ICD-10-PCS; 2018-02-21)
PROC: 0F798ZZ Dilation of Common Bile Duct, Via Natural or Artificial Opening Endoscopic (ICD-10-PCS; principal; 2018-02-25 08:10)
DX: K91.86 Retained cholelithiasis following cholecystectomy (principal); K85.90 Acute pancreatitis without necrosis or infection, unspecified; I20.1 Angina pectoris with documented spasm; E78.5 Hyperlipidemia, unspecified; G47.00 Insomnia, unspecified; F17.210 Nicotine dependence, cigarettes, uncomplicated; I11.9 Hypertensive heart disease without heart failure; M06.9 Rheumatoid arthritis, unspecified; K44.9 Diaphragmatic hernia without obstruction or gangrene; R00.1 Bradycardia, unspecified; R16.0 Hepatomegaly, not elsewhere classified; I25.10 Atherosclerotic heart disease of native coronary artery without angina pectoris; T44.7X5A Adverse effect of beta-adrenoreceptor antagonists, initial encounter; Z79.899 Other long term (current) drug therapy; Z79.82 Long term (current) use of aspirin; Z90.49 Acquired absence of other specified parts of digestive tract; Z88.8 Allergy status to other drugs, medicaments and biological substances; Z71.6 Tobacco abuse counseling; Z98.818 Other dental procedure status; Z82.49 Family history of ischemic heart disease and other diseases of the circulatory system; Z82.61 Family history of arthritis; Y92.239 Unspecified place in hospital as the place of occurrence of the external cause
CPT/HCPCS: 36415; 43262; 43277; 71046; 74181; 74328; 76705; 78452; 80053; 80061; 81001; 81003; 82150; 82550; 82553; 83690; 83735; 84484; 85025; 85049; 85610; 85730; 86301; 87086; 93005; 93017; 93306; 93458; 94760; 96374; 96375; 99285

== ENCOUNTER → 2018-02-28 | Outpatient (CLI) | payer OTHER ==
[2018-02-28 11:52] LABS: Basophils % (A) 0 %; Eosinophils % (A) 0 %; Lymphocytes % (A) 13 %; MCH 28.8 pg (25.0-35.0); MCHC 31.8 g/dL (31.0-37.0); MCV 90.7 fL (80.0-100.0); Mean Platelet Volume 7.8; Monocytes # (A) 0.7 k/uL (0-1.0); Monocytes % (A) 9 %; Neutrophils # (A) 5.5 k/uL (1.3-7.7); Neutrophils % (A) 74 %; Platelet Count 236 k/uL (150-450); RBC 4.85 m/uL (4.30-5.90); RDW 14.6 % (11.5-15.5); WBC 7.4 k/uL (3.8-10.6)
[2018-02-28 12:08] LABS: ALT 161 U/L (21-72); AST 140 U/L (17-59); Albumin 3.6 g/dL (3.5-5.0); Alkaline Phosphatase 1120 U/L (38-126); Anion Gap 12 mmol/L; Blood Urea Nitrogen 20 mg/dL (9-20); Calcium 9.3 mg/dL (8.4-10.2); Carbon Dioxide 26 mmol/L (22-30); Chloride 100 mmol/L (98-107); Glucose 229 mg/dL (74-99); Lipase 390 U/L (23-300); Potassium 5.3 mmol/L (3.5-5.1); Sodium 138 mmol/L (137-145); Total Bilirubin 1.7 mg/dL (0.2-1.3); Total Protein 7.1 g/dL (6.3-8.2)
== END | disposition home or self-care (01) ==
LOC: LABWHC1 10:57
PROVIDERS: ATTEND Family Medicine
DX: K85.90 Acute pancreatitis without necrosis or infection, unspecified (principal)
CPT/HCPCS: 36415; 80053; 83690; 85025

== ENCOUNTER → 2019-03-23 | Outpatient (CLI) | payer OTHER ==
--- NOTE | 2019-03-23 10:55 | XR ---
EXAMINATION TYPE: XR chest 2V DATE OF EXAM: 03/23/2019 COMPARISON: 02/19/2018 TECHNIQUE: PA and lateral views submitted. HISTORY: Chest pain FINDINGS: Left lower lobe consolidation and small effusion. Linear changes involving the left lobe suggestive o f scar or atelectasis. Arthropathy shoulders. No overt failure. Hypertrophic and degenerative changes spine. Hyperinflation suggests COPD. IMPRESSION: 1. Left lower lobe infiltrate and small effusion. 2. Correlate for COPD.
== END | disposition home or self-care (01) ==
LOC: RADXRMAIN 10:26
PROVIDERS: ATTEND Family Medicine
DX: J90 Pleural effusion, not elsewhere classified (principal); R91.8 Other nonspecific abnormal finding of lung field
CPT/HCPCS: 71046

== ENCOUNTER 2020-04-17 00:03 | Emergency (ER) | payer OTHER, BC ==
[2020-04-17 00:13] VITALS: RESP 16; TEMP 98.2
--- NOTE | 2020-04-17 00:25 | ED ---
Upper Extremity HPI - General Chief Complaint: Extremity Injury, Upper Stated Complaint: left extremity injury, W/C Time Seen by Provider: 04/17/20 00:17 Source: patient Mode of arrival: ambulatory Limitations: no limitations - History of Present Illness Initial Comments: Patient is a 59-year-old male presenting to emergency Department with chief complaint of left elbow pain. Patient states he was a work when one of the large lumbar pieces that he was carrying slipped and he ended up hitting his left elbow along an I-beam. Patient reports there is some swelling to the left olecranon region. Patient states he has range of motion but not with full extension. Patient denies any numbness or tingling. Denies taking medication to relieve the symptoms. States this occurred several hours prior to arrival. - Related Data Home Medications Medication Instructions Recorded Confirmed Aspirin 81 mg PO DAILY 01/10/16 02/19/18 Leflunomide [Arava] 20 mg PO DAILY 04/25/16 02/19/18 Diltiazem HCl [Diltiazem 24Hr ER] 240 mg PO Q24HR 08/07/17 02/19/18 Buprenorphine HCl/Naloxone HCl 0.5 tab SL BID 02/19/18 02/19/18 [Zubsolv 2.9-0.71 mg Tablet Sl] Cetirizine HCl [Zyrtec] 10 mg PO DAILY 02/19/18 02/19/18 Etanercept [Enbrel] 50 mg SQ Q7DAYS 02/19/18 02/19/18 Gabapentin [Neurontin] 300 mg PO HS 02/19/18 02/19/18 traZODone HCL 150 mg PO HS 02/19/18 02/19/18 Previous Rx's Medication Instructions Recorded Nitroglycerin Sl Tabs [Nitrostat] 0.4 mg SUBLINGUAL Q5M PRN #25 tab 04/26/16 Aspirin 81 mg PO DAILY chew 02/26/18 Atorvastatin [Lipitor] 80 mg PO DAILY #30 tab 02/26/18 Melatonin 10 mg PO HS tablet 02/26/18 Nicotine 21Mg/24Hr Patch [Habitrol] 1 patch TRANSDERM DAILY #30 patch 02/26/18 Allergies Allergy/AdvReac Type Severity Reaction Status Date / Time rofecoxib [From Vioxx] Allergy Severe Swelling Verified 04/17/20 00:13 Review of Systems ROS Statement: Those systems with pertinent positive or pertinent negative responses have been documented in the HPI. ROS Other: All systems not noted in ROS Statement are negative. Past Medical History Past Medical History: Chest Pain / Angina, Hyperlipidemia, Hypertension, Rheumatoid Arthritis (RA) Additional Past Medical History / Comment(s): "muscle spasms in heart", hiatal hernia, History of Any Multi-Drug Resistant Organisms: None Reported Past Surgical History: Appendectomy, Back Surgery, Cholecystectomy, Heart Catheterization, Orthopedic Surgery, Tonsillectomy Additional Past Surgical History / Comment(s): DENTAL IMPLANT, hip Past Anesthesia/Blood Transfusion Reactions: Family History of Problems w/ Anesthesia Additional Past Anesthesia/Blood Transfusion Reaction / Comment(s): sister- long time to come out Past Psychological History: No Psychological Hx Reported Smoking Status: Current every day smoker Past Alcohol Use History: None Reported Past Drug Use History: None Reported - Past Family History Father History Unknown: Yes Family Medical History: Unable to Obtain (Patient is no much about his father.) Mother Family Medical History: No Reported History Brother(s) Family Medical History: No Reported History Sister(s) Family Medical History: Rheumatoid Arthritis (RA) Daughter(s) Family Medical History: No Reported History General Exam Limitations: no limitations General appearance: alert, in no apparent distress Head exam: Present: atraumatic, normocephalic, normal inspection Eye exam: Present: normal appearance, PERRL, EOMI Pupils: Present: normal accommodation ENT exam: Present: normal exam, normal oropharynx, mucous membranes moist Neck exam: Present: normal inspection, full ROM. Absent: tenderness Respiratory exam: Present: normal lung sounds bilaterally. Absent: respiratory distress, wheezes Cardiovascular Exam: Present: regular rate, normal rhythm, normal heart sounds Extremities exam: Present: full ROM, normal capillary refill, joint swelling (Left elbow), other (+2 ulnar and radial pulses bilaterally.). Absent: normal inspection (Swelling at the left olecranon), tenderness Back exam: Present: normal inspection, full ROM Neurological exam: Present: alert, oriented X3 Psychiatric exam: Present: normal affect, normal mood Skin exam: Present: warm, dry, intact, normal color Course Vital Signs 04/17/20 04/17/20 00:10 01:52 Temperature 98.2 F 98.2 F Pulse Rate 77 60 Respiratory 16 16 Rate Blood Pressure 159/94 144/89 O2 Sat by Pulse 98 98 Oximetry Procedures - Orthopedic Splinting/Casting Injury #1 Side: left Upper Extremity Injury Location: elbow Upper Extremity Immobilizer: sling/shoulder immobilizer, posterior splint, Gildardo wrap, synthetic pre-padded splint Medical Decision Making - Medical Decision Making Exam patient is a 59-year-old male presenting to emergency Department with chief complaint of left elbow pain. I patient has swelling to left elbow. X-ray reveals a chip fracture at the radial head. He is otherwise neurovascularly intact in the injured extremity. Patient was given and will be discharged with Tylenol 3 starter pack. Advised not to drive or operate machinery when taking medication. 90 posterior splint applied to the injured extremity. Patient was advised to follow-up with an welfare specialist. She was advised to alternate between Tylenol Motrin for pain control. Strict return parameters were thoroughly discussed patient was understanding and agreeable. Case discussed with physician. Disposition Clinical Impression: Radial head fracture, Pain and swelling of left elbow Disposition: HOME SELF-CARE Condition: Stable Instructions (If sedation given, give patient instructions): Elbow Fracture (ED) Additional Instructions: Follow with welfare specialist. Return to emergency department if symptoms worsen. Is patient prescribed a controlled substance at d/c from ED?: No Referrals: Meghan Otoole MD [REFERRING] - 1-2 days Andres Sylvester PAC [PHYSICIAN INDUSTRIAL TECHNOLOGY EDUCATION TEACHER] - 1-2 days Time of Disposition: 01:19
[2020-04-17] MEDS ORDERED: Acetaminophen-Codeine 300-30mg TAB PO STA (00:32)
--- NOTE | 2020-04-17 01:01 | XR ---
EXAMINATION TYPE: XR elbow complete LT DATE OF EXAM: 04/17/2020 COMPARISON: NONE HISTORY: Elbow injury TECHNIQUE: 3 views FINDINGS: There is a 10 x 5 mm chip fracture of the lateral aspect of the radial head. There is no di slocation. There is no evidence of joint effusion. There is some spurring at the radiohumeral joint a nd also the ulnar side humeral joint. IMPRESSION: Small chip fracture of the lateral aspect of the radial head.
[2020-04-17] MEDS ORDERED: ACET/COD 300 MG/30 MG STARTER PACK 6 TAB BTL PO STA (01:52)
[2020-04-17 01:53] VITALS: BP 144/89; PULSE 60
== END 2020-04-17 01:57 | disposition home or self-care (01) ==
LOC: EC 00:03
DX: S52.125A Nondisplaced fracture of head of left radius, initial encounter for closed fracture (principal); I25.2 Old myocardial infarction; I10 Essential (primary) hypertension; M06.9 Rheumatoid arthritis, unspecified; Z79.82 Long term (current) use of aspirin; F17.200 Nicotine dependence, unspecified, uncomplicated; Z79.899 Other long term (current) drug therapy; Z88.8 Allergy status to other drugs, medicaments and biological substances; Z95.5 Presence of coronary angioplasty implant and graft; Z98.890 Other specified postprocedural states; W22.8XXA Striking against or struck by other objects, initial encounter; Y93.89 Activity, other specified; Y92.69 Other specified industrial and construction area as the place of occurrence of the external cause; Y99.0 Civilian activity done for income or pay
CPT/HCPCS: 29105; 99283

== ENCOUNTER → 2021-11-02 | Outpatient (CLI) | payer BC ==
[2021-11-02 19:32] LABS: Basophils # (A) 0.03 X 10*3/uL (0.00-0.10); Basophils % (A) 0.4 %; Eosinophils # (A) 0.21 X 10*3/uL (0.04-0.35); Eosinophils % (A) 2.9 %; HCT 47.3 % (39.6-50.0); HGB 14.8 g/dL (13.0-17.0); Immature Grans, Automated 0.3 %; Lymphocytes # (A) 1.17 X 10*3/uL (0.90-5.00); Lymphocytes % (A) 15.9 %; MCH 28.4 pg (27.0-32.0); MCHC 31.3 g/dL (32.0-37.0); MCV 90.6 fL (80.0-97.0); Monocytes % (A) 8.2 %; NRBC Per 100 WBC 0 /100 WBCS (0.0-0.0); Neutrophils # (A) 5.32 X 10*3/uL (1.80-7.70); Neutrophils % (A) 72.3 %; Platelet Count 227 X 10*3/uL (140-440); RBC 5.22 X 10*6/uL (4.40-5.60); RDW 13.3 % (11.5-14.5); WBC 7.35 X 10*3/uL (4.50-10.00)
[2021-11-02 19:58] LABS: Chol/HDL Ratio 3.86 Ratio; LDL Cholesterol,Calculated 114.8 mg/dL (0.0-131.0); VLDL Calculation 13.44 mg/dL (5.00-40.00)
[2021-11-02 19:59] LABS: ALT 14 U/L (10-49); AST 16 U/L (14-35); African American GFR (CKD) 114.9 (60.0-200.0); Alkaline Phosphatase 118 U/L (41-126); BUN/Creat Ratio 19.32 Ratio (12.00-20.00); Blood Urea Nitrogen 14.7 mg/dL (9.0-27.0); Calcium 9.4 mg/dL (8.7-10.3); Carbon Dioxide 22.5 mmol/L (20.0-27.5); Chloride 106 mmol/L (96-109); Globulin 2.9 g/dL (1.6-3.3); Glucose 106 mg/dL (70-110); Non-African American GFR(CKD) 99.1 (60.0-200.0); Potassium 4.6 mmol/L (3.5-5.5); Sodium 141 mmol/L (135-145); Total Protein 6.9 g/dL (6.2-8.2)
== END | disposition home or self-care (01) ==
LOC: LABWHC1 11:24
PROVIDERS: ATTEND Family Medicine
DX: K13.70 Unspecified lesions of oral mucosa (principal); M06.9 Rheumatoid arthritis, unspecified; E78.5 Hyperlipidemia, unspecified; R53.83 Other fatigue
CPT/HCPCS: 36415; 80053; 80061; 83036; 83735; 84403; 84439; 84443; 85025; 85379

== ENCOUNTER → 2021-11-03 | Outpatient (CLI) | payer BC ==
--- NOTE | 2021-11-03 14:05 | US ---
EXAMINATION TYPE: US venous doppler duplex LE DATE OF EXAM: 11/03/2021 1:50 PM COMPARISON: NONE CLINICAL HISTORY: R79.1 Elevated d-dimer; patient stated has right posterior thigh swelling x 3 month s, and now has right thigh cramping x 1 week; rheumatoid arthritis. SIDE PERFORMED: Bilateral TECHNIQUE: The lower extremity deep venous system is examined utilizing real time linear array sonog shanae with graded compression, doppler sonography and color-flow sonography. VESSELS IMAGED: Common Femoral Vein Deep Femoral Vein Greater Saphenous Vein * Femoral Vein Popliteal Vein Small Saphenous Vein * Proximal Calf Veins (* superficial vessels) Right Leg: Negative for DVT Left Leg: Negative for DVT IMPRESSION: No evidence of DVT at this time.
== END | disposition home or self-care (01) ==
LOC: RADUSWWP 13:02
PROVIDERS: ATTEND Family Medicine
DX: R79.1 Abnormal coagulation profile (principal); R25.2 Cramp and spasm
CPT/HCPCS: 93970

== ENCOUNTER → 2022-03-19 | Outpatient (CLI) | payer BC ==
--- NOTE | 2022-03-19 10:56 | XR ---
Cervical spine HISTORY: Pain 6 views of the cervical spine, correlation prior exam 11/23/2014 Multilevel facet arthropathy changes are present. Multilevel foraminal encroachment right C3-4, C4-5 and C5-6, left left side at C3-4, C4-5. There is spondylosis present, loss of disc height greatest at C3-4 and C4-5. Cervical vertebral bodies show preserved height and alignment, bone mineralization. T he vertebral soft tissues are normal. IMPRESSION: Degenerative disc disease, neural foraminal encroachment, facet arthropathy noted at mult iple levels.
== END | disposition home or self-care (01) ==
LOC: RADXRMAIN 09:33
PROVIDERS: ATTEND Family Medicine
DX: M50.321 Other cervical disc degeneration at C4-C5 level (principal); M47.812 Spondylosis without myelopathy or radiculopathy, cervical region
CPT/HCPCS: 72050

== ENCOUNTER 2022-05-21 16:12 | Emergency (ER) | payer BC ==
[2022-05-21] MEDS ORDERED: diphenhydrAMINE 50 MG/ML 1 ML VIAL IVP STA (17:16)
[2022-05-21] MEDS ORDERED: DEXAMETHASONE SOD PHOSPHATE 10 MG/ML 1 ML VIAL IV STA (17:16)
[2022-05-21] MEDS ORDERED: SODIUM CHLORIDE 0.9% 1,000 ML IV STA (17:16)
[2022-05-21] MEDS ORDERED: METOCLOPRAMIDE 5 MG/ML 2 ML VIAL IVP STA (17:16)
--- NOTE | 2022-05-21 17:19 | ED ---
Headache HPI - General Chief Complaint: Headache Stated Complaint: headache, vision issues Time Seen by Provider: 05/21/22 17:08 Source: patient, RN notes reviewed Mode of arrival: ambulatory - History of Present Illness Initial Comments: This is a 61-year-old male who presents to the emergency department for a headache. Patient states that he sees Dr. Cabrera, neurology, and last week had shots in his neck for treatment of cervicalgia. States that this was also to numb the area. It wore off after approximately 4 days, and since then, he has been experiencing a severe headache, neck pain, and visual changes for the last couple of days. States that starting a couple of hours ago, he would describe this as the worst headache of his life. Denies any nausea or vomiting. Denies any fevers, chills, sore throat, cough, dyspnea, chest pain, palpitations, abdominal pain, nausea, vomiting, or diarrhea. MD Complaint: headache Onset/Timin -: days(s) - Related Data Home Medications Medication Instructions Recorded Confirmed Aspirin 81 mg PO DAILY 01/10/16 02/19/18 Leflunomide [Arava] 20 mg PO DAILY 04/25/16 02/19/18 dilTIAZem HCL [Diltiazem 24Hr ER 240 mg PO Q24HR 08/07/17 02/19/18 (Cd)] Buprenorphine HCl/Naloxone HCl 0.5 tab SL BID 02/19/18 02/19/18 [Zubsolv 2.9-0.71 mg Tablet Sl] Cetirizine HCl [Zyrtec] 10 mg PO DAILY 02/19/18 02/19/18 Etanercept [Enbrel] 50 mg SQ Q7DAYS 02/19/18 02/19/18 Gabapentin [Neurontin] 300 mg PO HS 02/19/18 02/19/18 traZODone HCL 150 mg PO HS 02/19/18 02/19/18 Previous Rx's Medication Instructions Recorded Nitroglycerin Sl Tabs [Nitrostat] 0.4 mg SUBLINGUAL Q5M PRN #25 tab 04/26/16 Aspirin 81 mg PO DAILY chew 02/26/18 Atorvastatin [Lipitor] 80 mg PO DAILY #30 tab 02/26/18 Melatonin 10 mg PO HS tablet 02/26/18 Nicotine 21Mg/24Hr Patch [Habitrol] 1 patch TRANSDERM DAILY #30 patch 02/26/18 dexAMETHasone 6 mg PO QAM 5 Days #5 tablet 05/21/22 Allergies Allergy/AdvReac Type Severity Reaction Status Date / Time rofecoxib [From Vioxx] Allergy Severe Swelling Verified 05/21/22 16:31 Review of Systems ROS Statement: Those systems with pertinent positive or pertinent negative responses have been documented in the HPI. ROS Other: All systems not noted in ROS Statement are negative. Past Medical History Past Medical History: Chest Pain / Angina, Hyperlipidemia, Hypertension, Rheumatoid Arthritis (RA) Additional Past Medical History / Comment(s): "muscle spasms in heart", hiatal hernia, migraines History of Any Multi-Drug Resistant Organisms: None Reported Past Surgical History: Appendectomy, Back Surgery, Cholecystectomy, Heart Catheterization, Orthopedic Surgery, Tonsillectomy Additional Past Surgical History / Comment(s): DENTAL IMPLANT, hip Past Anesthesia/Blood Transfusion Reactions: Family History of Problems w/ Anesthesia Additional Past Anesthesia/Blood Transfusion Reaction / Comment(s): sister- long time to come out Past Psychological History: No Psychological Hx Reported Smoking Status: Current every day smoker Past Alcohol Use History: None Reported Past Drug Use History: None Reported - Past Family History Father History Unknown: Yes Family Medical History: Unable to Obtain (Patient is no much about his father.) Mother Family Medical History: No Reported History Brother(s) Family Medical History: No Reported History Sister(s) Family Medical History: Rheumatoid Arthritis (RA) Daughter(s) Family Medical History: No Reported History General Exam General appearance: alert, in distress Head exam: Present: atraumatic, normocephalic, normal inspection Eye exam: Present: normal appearance, PERRL, EOMI. Absent: scleral icterus, conjunctival injection, periorbital swelling Neck exam: Present: normal inspection. Absent: tenderness, meningismus, lymphadenopathy Respiratory exam: Present: normal lung sounds bilaterally. Absent: respiratory distress, wheezes, rales, rhonchi, stridor Cardiovascular Exam: Present: regular rate, normal rhythm, normal heart sounds. Absent: systolic murmur, diastolic murmur, rubs, gallop, clicks Neurological exam: Present: alert, oriented X3, CN II-XII intact Psychiatric exam: Present: normal affect, normal mood Skin exam: Present: warm, dry, intact, normal color. Absent: rash Course Vital Signs 05/21/22 05/21/22 16:28 19:12 Temperature 97.7 F 96.9 F L Pulse Rate 73 57 L Respiratory 16 18 Rate Blood Pressure 144/92 147/87 O2 Sat by Pulse 97 99 Oximetry Medical Decision Making - Medical Decision Making This is a 61-year-old male who presents to the emergency department for a headache. Given that the patient was complaining of this being the worst headache of his life with associated pain in the neck, computed tomography scan of the brain and C-spine were obtained, which revealed no acute irregularities. Baseline lab work including inflammatory markers were obtained, revealing no actionable findings. Patient given IV fluids and a migraine cocktail consisting of Reglan, Decadron, and Benadryl. He reported almost complete resolution of symptoms following treatment. Prescription for additional 5 day course of Decadron provided to help any residual headache, nausea, and neck pain. Advised he discussed this with his neurologist during his appointment tomorrow, and only take it if his neurologist is agreeable to this. Return precautions reviewed in depth, the patient is instructed to return to the emergency department with any new, worsening, or concerning symptoms. Patient verbalized understanding. This case was discussed in detail with the attending ED physician. Presentation, findings, and treatment plan discussed in detail as well. - Lab Data Result diagrams: 05/21/22 17:45 05/21/22 17:45 Lab Results 05/21/22 05/21/22 Range/Units 17:45 17:45 WBC 10.9 H (3.8-10.6) k/uL RBC 5.22 (4.30-5.90) m/uL Hgb 15.6 (13.0-17.5) gm/dL Hct 46.5 (39.0-53.0) % MCV 89.0 (80.0-100.0) fL MCH 29.9 (25.0-35.0) pg MCHC 33.6 (31.0-37.0) g/dL RDW 13.4 (11.5-15.5) % Plt Count 200 (150-450) k/uL MPV 8.1 Neutrophils % 75 % Lymphocytes % 15 % Monocytes % 7 % Eosinophils % 2 % Basophils % 0 % Neutrophils # 8.1 H (1.3-7.7) k/uL Lymphocytes # 1.6 (1.0-4.8) k/uL Monocytes # 0.8 (0-1.0) k/uL Eosinophils # 0.2 (0-0.7) k/uL Basophils # 0.0 (0-0.2) k/uL ESR 2 (0-15) mm/hr Sodium 136 L (137-145) mmol/L Potassium 4.6 (3.5-5.1) mmol/L Chloride 103 (98-107) mmol/L Carbon Dioxide 22 (22-30) mmol/L Anion Gap 11 mmol/L BUN 17 (9-20) mg/dL Creatinine 0.72 (0.66-1.25) mg/dL Est GFR (CKD-EPI)AfAm >90 (>60 ml/min/1.73 sqM) Est GFR (CKD-EPI)NonAf >90 (>60 ml/min/1.73 sqM) Glucose 99 (74-99) mg/dL Calcium 9.1 (8.4-10.2) mg/dL Total Bilirubin 0.5 (0.2-1.3) mg/dL AST 21 (17-59) U/L ALT 17 (4-49) U/L Alkaline Phosphatase 107 (38-126) U/L C-Reactive Protein <0.5 (<1.0) mg/dL Total Protein 7.1 (6.3-8.2) g/dL Albumin 4.0 (3.5-5.0) g/dL - Radiology Data Radiology results: report reviewed, image reviewed Disposition Clinical Impression: Cervicalgia, Headache Disposition: HOME SELF-CARE Instructions (If sedation given, give patient instructions): Acute Headache (ED) Additional Instructions: Return to the emergency department with any new, worsening, or concerning symptoms. Take the dexamethasone as prescribed for 5 days, unless otherwise instructed by neurology. Follow-up with neurology tomorrow as scheduled. Prescriptions: dexAMETHasone 6 mg PO QAM 5 Days #5 tablet Is patient prescribed a controlled substance at d/c from ED?: No Referrals: Edmund Powers DO [Primary Care Provider] - 1-2 days
[2022-05-21 18:01] LABS: Basophils % (A) 0 %; Eosinophils # (A) 0.2 k/uL (0-0.7); Eosinophils % (A) 2 %; HCT 46.5 % (39.0-53.0); HGB 15.6 gm/dL (13.0-17.5); Lymphocytes # (A) 1.6 k/uL (1.0-4.8); Lymphocytes % (A) 15 %; MCH 29.9 pg (25.0-35.0); MCHC 33.6 g/dL (31.0-37.0); Mean Platelet Volume 8.1; Monocytes # (A) 0.8 k/uL (0-1.0); Monocytes % (A) 7 %; Neutrophils # (A) 8.1 k/uL (1.3-7.7); Neutrophils % (A) 75 %; Platelet Count 200 k/uL (150-450); RBC 5.22 m/uL (4.30-5.90); RDW 13.4 % (11.5-15.5); WBC 10.9 k/uL (3.8-10.6)
--- NOTE | 2022-05-21 18:04 | CT ---
EXAMINATION TYPE: CT brain adriánine wo con DATE OF EXAM: 05/21/2022 COMPARISON: CT brain 04/07/2012 HISTORY: c/o headache and neck pain, no injury CT DLP: 1321.9 mGycm Automated exposure control for dose reduction was used. Ventricles have normal size. There is no mass effect or midline shift. No sign of intracranial hemorr awa. Calvarium is intact. No evidence of cerebral edema. The skull base is intact. Sella turcica shauna ears normal. There is normal aeration of the mastoid sinuses. The cervical vertebra have normal alignment. There i s minor degenerative spur formation from C3 to C6. There is hypertrophic mild cervical facet arthropa thy. No compression fracture. No subluxation. IMPRESSION: Mild spondylotic changes in the cervical spine. No fracture. Negative CT scan of the brain. Brain and unchanged compared to old exam.
[2022-05-21 18:18] LABS: ALT 17 U/L (4-49); AST 21 U/L (17-59); African American GFR (CKD) >90 (>60 ml/min/1.73 sqM); Alkaline Phosphatase 107 U/L (38-126); Anion Gap 11 mmol/L; Blood Urea Nitrogen 17 mg/dL (9-20); Calcium 9.1 mg/dL (8.4-10.2); Carbon Dioxide 22 mmol/L (22-30); Chloride 103 mmol/L (98-107); Glucose 99 mg/dL (74-99); Non-African American GFR(CKD) >90 (>60 ml/min/1.73 sqM); Potassium 4.6 mmol/L (3.5-5.1); Sodium 136 mmol/L (137-145); Total Bilirubin 0.5 mg/dL (0.2-1.3); Total Protein 7.1 g/dL (6.3-8.2)
[2022-05-21 18:31] LABS: C Reactive Protein <0.5 mg/dL (<1.0)
[2022-05-21 18:44] LABS: Erythrocyte Sedimentation Rate 2 mm/hr (0-15)
[2022-05-21 19:13] VITALS: BP 147/87; PULSE 57; RESP 18; TEMP 96.9
== END 2022-05-21 19:13 | disposition home or self-care (01) ==
LOC: EC 16:12
DX: R51.9 Headache, unspecified (principal); M54.2 Cervicalgia; E78.5 Hyperlipidemia, unspecified; I10 Essential (primary) hypertension; I25.10 Atherosclerotic heart disease of native coronary artery without angina pectoris; Z79.82 Long term (current) use of aspirin; F17.200 Nicotine dependence, unspecified, uncomplicated; Z88.8 Allergy status to other drugs, medicaments and biological substances
CPT/HCPCS: 36415; 80053; 85652; 85025; 86140; 72125; 70450; 99284; 96374; 96375; 96361; J1200; J1100; J2765

== ENCOUNTER → 2022-06-15 | Outpatient (CLI) | payer BC ==
--- NOTE | 2022-06-15 11:18 | PE ---
EXAMINATION TYPE: PET CT fusion skull to thigh DATE OF EXAM: 06/15/2022 COMPARISON: CT brain May 21, 2022 HISTORY: Pulmonary nodules TECHNIQUE: Following the intravenous administration of 10.83 mCi of F-18 FDG, whole body images are performed from the skull base to the midthigh. Images are reviewed on the computer in the coronal, a xial, and sagittal planes. Reconstructed rotating images are created on independent workstation and reviewed on the computer. A localization and attenuation correction CT is performed in conjunction with the PET scan. Blood glucose level equals 93. SCAN: Initial Scan FINDINGS: SKULL BASE AND NECK: Diminished radiotracer uptake right parietal occipital region extending into sup erior temporal lobe is suspicious for an area of ischemia likely subacute on chronic infarct. No areas of suspicious abnormal hypermetabolic uptake. CHEST, MEDIASTINUM, AND HILAR REGION: Mild emphysematous change with some scattered small nodules. Fo r reference there is 9 x 6 mm anterior right mid lung nodule axial image 132 and 8 mm right upper lob e nodule axial image 102. Nodules are ametabolic. No areas of abnormal hypermetabolic uptake. Small l eft pleural effusion is noted. [id number] anterolateral left basilar linear scarring is seen. ABDOMEN AND PELVIS: No adrenal masses. Normal excretion. No areas of abnormal hypermetabolic uptake. Urine extravasation inferiorly is noted. OSSEOUS STRUCTURES: No areas of abnormal hypermetabolic uptake. OTHER CT: Coronary artery calcification is present. Cholecystectomy clips are noted. There is 3.8 cm AAA axial image 205. Mildly enlarged prostate consistent with BPH. [id number] disc space narr owing L4-L5 level. IMPRESSION: 1. No suspicious hypermetabolic pulmonary nodules or masses. Differential would still include metasta tic disease. Correlate clinically. Advise at minimum CT follow-up in 6-12 months time to reassess. 2. Suspect diminished hypermetabolic uptake suggesting subacute or chronic ischemia right inferior pa rietal occipital lobe extending into the temporal lobe. Correlate for recent infarct. A Yellow level critical message alert has been initiated for Edmund Powers DO via the [employer] Critical Results System on 06/15/2022 11:16 AM. This message alert has been sent to Edmund uribe DO via the preferences provided by the clinician for the receipt of Radiology Critical Finding s. Message ID [id number].
== END | disposition home or self-care (01) ==
LOC: RADPETMAIN 08:04
PROVIDERS: ATTEND Family Medicine
DX: I63.9 Cerebral infarction, unspecified (principal); R91.8 Other nonspecific abnormal finding of lung field
CPT/HCPCS: 78815; A9552

== ENCOUNTER → 2022-07-23 | Outpatient (CLI) | payer BC ==
[2022-07-23 14:40] LABS: Chol/HDL Ratio 2.84 Ratio; LDL Cholesterol,Calculated 78.2 mg/dL (0.0-131.0); VLDL Calculation 13.22 mg/dL (5.00-40.00)
== END | disposition home or self-care (01) ==
LOC: LABWHC1 09:34
PROVIDERS: ATTEND Internal Medicine Interventional Cardiology
DX: E78.2 Mixed hyperlipidemia (principal)
CPT/HCPCS: 36415; 80061

== ENCOUNTER → 2022-08-15 | Day surgery (SDC) | payer BC ==
[~2022-08-15] MED LIST: LIDOCAINE 1% INJ 10MG/ML (30 ML VIAL-PF) SQ ONE; SODIUM CHLORIDE 0.9% 1,000 ML IV SCH
[2022-08-15 11:22] VITALS: BP 167/79; PULSE 68; RESP 18; TEMP 97.9
--- NOTE | 2022-08-15 11:55 | P.PCN ---
Description of Procedure: Procedure: Insertion of Linq loop recorder Indication: Cryptogenic stroke CONSENT:I have discussed the risks, benefits and alternative therapies for the above-mentioned procedure. The patient has indicated understanding and acceptance of the risks and procedures discussed. PROCEDURE: Patient was brought to the catheterization lab in a fasting state. Patient was prepped and draped in the usual fashion. 1% lidocaine was used to anesthetize the area of the left third intercostal space. Using the loop recorder incision device, a small 0.5 cm incision was made in the left 3rd intercostal space. Next the Linq loop recorder was deployed in the 3rd intercostal space subcutaneously using the insertion tool. Thresholds were ch ecked and were 0.2V. Next the incision was closed using Dermabond. Steristrips were placed over the incision and the procedure was completed. The patient tolerated the procedure well. The patient was transported to the post cath holding area in stable condition. Linq loop recorder serial number: [id number]
== END ==
LOC: CATHEP 11:03
PROVIDERS: ATTEND Internal Medicine
DX: I63.9 Cerebral infarction, unspecified (principal); I25.10 Atherosclerotic heart disease of native coronary artery without angina pectoris; I10 Essential (primary) hypertension; F17.210 Nicotine dependence, cigarettes, uncomplicated; E78.2 Mixed hyperlipidemia; Z71.6 Tobacco abuse counseling; Z79.1 Long term (current) use of non-steroidal anti-inflammatories (NSAID); Z79.02 Long term (current) use of antithrombotics/antiplatelets; Z79.82 Long term (current) use of aspirin; Z79.899 Other long term (current) drug therapy; Z88.8 Allergy status to other drugs, medicaments and biological substances; E78.00 Pure hypercholesterolemia, unspecified; Z90.49 Acquired absence of other specified parts of digestive tract; F15.20 Other stimulant dependence, uncomplicated
CPT/HCPCS: 33285; C1764; J0690; J2001

== ENCOUNTER → 2022-11-21 | Outpatient (CLI) | payer BC ==
[2022-11-21 23:44] LABS: ALT 40 U/L (10-49); AST 24 U/L (14-35); Chol/HDL Ratio 2.98 Ratio
== END | disposition home or self-care (01) ==
LOC: LABWHC1 15:43
PROVIDERS: ATTEND Internal Medicine Interventional Cardiology
DX: E78.2 Mixed hyperlipidemia (principal); Z86.73 Personal history of transient ischemic attack (TIA), and cerebral infarction without residual deficits
CPT/HCPCS: 36415; 80061; 83090; 84450; 84460

== ENCOUNTER → 2023-04-08 | Outpatient (CLI) | payer BC ==
--- NOTE | 2023-04-08 11:43 | CT ---
EXAMINATION TYPE: CT brain wo con DATE OF EXAM: 04/08/2023 COMPARISON: 11/15/2022. HISTORY: Memory loss, confusion CT DLP: 1090.4 mGycm Automated exposure control for dose reduction was used. FINDINGS: There is no acute intracranial hemorrhage, mass, mass effect, midline shift, extra-axial fluid collec tion or hydrocephalus. There is encephalomalacia seen within the right posterior cerebral artery territory which is unchange d from the previous examination and likely relates to prior infarct. There is scattered patchy hypoat tenuation within the periventricular white matter is likely related to chronic ischemic small vessel changes. The visualized paranasal sinuses and mastoid air cells are clear. IMPRESSION: OLD RIGHT-SIDED INFARCT AND CHRONIC ISCHEMIC SMALL VESSEL CHANGE WITH NO ACUTE INTRACRANIAL PROCESS O THERWISE SEEN. NO SIGNIFICANT CHANGE.
== END | disposition home or self-care (01) ==
LOC: RADCTMAIN 10:39
PROVIDERS: ATTEND Family Medicine
DX: I67.82 Cerebral ischemia (principal); Z86.73 Personal history of transient ischemic attack (TIA), and cerebral infarction without residual deficits
CPT/HCPCS: 70450

== ENCOUNTER 2023-08-12 19:26 | Inpatient (IN) | payer BC ==
[2023-08-12 20:00] LABS: Glucose,Whole Blood 85 mg/dL (70-110)
--- NOTE | 2023-08-12 20:06 | ED ---
General Adult HPI - General Chief complaint: Neuro Symptoms/Deficit Stated complaint: poss stroke,left side numbess Time Seen by Provider: 08/12/23 19:41 Source: patient, RN notes reviewed, old records reviewed Mode of arrival: wheelchair Limitations: no limitations - History of Present Illness Initial comments: 62-year-old male presenting with left-sided facial numbness, left arm and left leg weakness. Symptoms began at approximately 1330. Patient has prior history of ischemic stroke. He is on aspirin and Plavix currently. Patient states symptoms are similar to previous TIA and stroke symptoms that he's had in the past. Even. No cough. No dyspnea. No vomiting. - Related Data Home Medications Medication Instructions Recorded Confirmed Amitriptyline HCl [Elavil] 10 mg PO HS 08/14/22 08/12/23 Atorvastatin [Lipitor] 80 mg PO HS 10/16/22 08/12/23 Sildenafil Citrate 50 mg PO Q72H PRN 10/16/22 08/12/23 Clopidogrel [Plavix] 75 mg PO DAILY 08/12/23 08/12/23 Metoprolol Tartrate [Lopressor] 50 mg PO HS 08/12/23 08/12/23 amLODIPine [Norvasc] 5 mg PO DAILY 08/12/23 08/12/23 Previous Rx's Medication Instructions Recorded Aspirin 81 mg PO DAILY chew 02/26/18 Pantoprazole Sodium [Protonix] 40 mg PO DAILY #30 tab 10/19/22 Allergies Allergy/AdvReac Type Severity Reaction Status Date / Time rofecoxib [From Vioxx] Allergy Severe Swelling Verified 08/12/23 21:06 Review of Systems ROS Statement: Those systems with pertinent positive or pertinent negative responses have been documented in the HPI. ROS Other: All systems not noted in ROS Statement are negative. Past Medical History Past Medical History: CVA/TIA, Hyperlipidemia, Hypertension, Rheumatoid Arthritis (RA) Additional Past Medical History / Comment(s): "muscle spasms in heart", hiatal hernia, migraines, had stroke in Sept-no peripheral vision left eye, not currently needing BP med-made his BP too low History of Any Multi-Drug Resistant Organisms: None Reported Past Surgical History: Appendectomy, Back Surgery, Cholecystectomy, Heart Catheterization, Tonsillectomy Additional Past Surgical History / Comment(s): DENTAL IMPLANTS Past Anesthesia/Blood Transfusion Reactions: Family History of Problems w/ Anesthesia Additional Past Anesthesia/Blood Transfusion Reaction / Comment(s): sister- long time to come out Past Psychological History: No Psychological Hx Reported Smoking Status: Current every day smoker - Past Family History Father History Unknown: Yes Mother Family Medical History: No Reported History Brother(s) Family Medical History: No Reported History Sister(s) Family Medical History: Rheumatoid Arthritis (RA) Daughter(s) Family Medical History: No Reported History General Exam Limitations: no limitations General appearance: alert, in no apparent distress Head exam: Present: atraumatic, normocephalic Eye exam: Present: normal appearance, PERRL ENT exam: Present: normal exam Neck exam: Present: normal inspection. Absent: tenderness, meningismus Respiratory exam: Present: normal lung sounds bilaterally. Absent: respiratory distress, wheezes Cardiovascular Exam: Present: regular rate, normal rhythm GI/Abdominal exam: Present: soft. Absent: distended, tenderness Neurological exam: Present: alert, oriented X3, motor sensory deficit (NIH of 5, left facial numbness, no droop, left arm and left leg drift with numbness.) Psychiatric exam: Present: normal affect, normal mood Skin exam: Present: warm, dry, intact. Absent: cyanosis, diaphoretic Course Vital Signs 08/12/23 08/12/23 08/12/23 19:31 19:46 20:00 Temperature 97.9 F Pulse Rate 69 67 65 Respiratory 18 18 16 Rate Blood Pressure 166/92 153/87 121/97 O2 Sat by Pulse 99 98 99 Oximetry 08/12/23 08/12/23 08/12/23 20:15 20:30 20:45 Temperature Pulse Rate 65 65 59 L Respiratory 18 16 Rate Blood Pressure 151/77 145/78 141/81 O2 Sat by Pulse 99 100 100 Oximetry 08/12/23 21:00 Temperature Pulse Rate 61 Respiratory 18 Rate Blood Pressure 142/76 O2 Sat by Pulse 98 Oximetry Medical Decision Making - Medical Decision Making Was pt. sent in by a medical professional or institution (, PA, MEDICAL SALES SPECIALIST, urgent care, hospital, or skilled nursing...) When possible be specific @ -No Did you speak to anyone other than the patient for history (EMS, parent, family, police, friend...)? What history was obtained from this source @ -No Did you review nursing and triage notes (agree or disagree)? Why? @ -I reviewed and agree with nursing and triage notes Were old charts reviewed (outside hosp., previous admission, EMS record, old EKG, old radiological studies, urgent care reports/EKG's, skilled nursing records)? Report findings @ -No old charts were reviewed Differential Diagnosis (chest pain, altered mental status, abdominal pain women, abdominal pain men, vaginal bleeding, weakness, fever, dyspnea, syncope, headache, dizziness, GI bleed, back pain, seizure, CVA, palpatations, mental health, musculoskeletal)? @ -Differential CVA Ischemic stroke, hemorrhagic stroke, brain tumor, atypical migraine, Wernicke's encephalopathy, seizure, multiple sclerosis, meningitis, encephalitis, hypoglycemia, Guillain-Davis, electrolytes disturbance, myasthenia gravis.... This is not meant to be an all-inclusive list EKG interpreted by me (3pts min.). @EKG: Sinus rhythm incomplete right bundle-branch block, rate of 67, IL interval 159, QRS duration 92, QTC 394, no ST segment elevation. X-rays interpreted by me (1pt min.). @ Chest x-ray left pleural effusion CT interpreted by me (1pt min.). @ -CT brain negative for intracranial hemorrhage or mass effect, prior encephalomalacia from previous CVA, CTA negative for acute occlusion. U/S interpreted by me (1pt. min.). @ -None done What testing was considered but not performed or refused? (CT, X-rays, U/S, labs)? Why? @ -None What meds were considered but not given or refused? Why? @ -None Did you discuss the management of the patient with other professionals (professionals i.e. , PA, MEDICAL SALES SPECIALIST, lab, RT, psych nurse, social media specialist, security program manager, teacher, court security officer, telehealth case manager)? Give summary @ -EMH Was smoking cessation discussed for >3mins.? @ -No Was critical care preformed (if so, how long)? @ -[yes, 35 min Were there social determinants of health that impacted care today? How? (Homelessness, low income, unemployed, alcoholism, drug addiction, transportation, low edu. Level, literacy, decrease access to med. care, [facility], rehab)? @ -No Was there de-escalation of care discussed even if they declined (Discuss DNR or withdrawal of care, Hospice)? DNR status @ -No What co-morbidities impacted this encounter? (DM, HTN, Smoking, COPD, CAD, Cancer, CVA, ARF, Chemo, Hep., AIDS, mental health diagnosis, sleep apnea, morbid obesity)? @ -Hypertension, history of CVA Was patient admitted / discharged? Hospital course, mention meds given and route, prescriptions, significant lab abnormalities, going to OR and other pertinent info. @ -[Patient will be admitted for further CVA evaluation and treatment. Case discussed with Mamie alva [facility] Undiagnosed new problem with uncertain prognosis? @ -No Drug Therapy requiring intensive monitoring for toxicity (Heparin, Nitro, Insu chris, Cardizem)? @ -No Were any procedures done? @ -No Diagnosis/symptom? @ -CVA Acute, or Chronic, or Acute on Chronic? @ acute Uncomplicated (without systemic symptoms) or Complicated (systemic symptoms)? @ -complicated Side effects of treatment? @ -No Exacerbation, Progression, or Severe Exacerbation? @ -No Poses a threat to life or bodily function? How? (Chest pain, USA, CT, pneumonia, PE, COPD, DKA, ARF, appy, cholecystitis, CVA, Diverticulitis, Homicidal, Suicidal, threat to staff... and all critical care pts) @ -[yes, 35 min - Lab Data Result diagrams: 08/12/23 19:49 08/12/23 19:49 Lab Results 08/12/23 08/12/23 08/12/23 Range/Units 19:49 19:49 19:49 WBC 9.2 (3.8-10.6) k/uL RBC 5.15 (4.30-5.90) m/uL Hgb 15.9 (13.0-17.5) gm/dL Hct 48.0 (39.0-53.0) % MCV 93.2 (80.0-100.0) fL MCH 30.9 (25.0-35.0) pg MCHC 33.2 (31.0-37.0) g/dL RDW 13.1 (11.5-15.5) % Plt Count 236 (150-450) k/uL MPV 8.1 Neutrophils % 76 % Lymphocytes % 15 % Monocytes % 6 % Eosinophils % 1 % Basophils % 0 % Neutrophils # 7.0 (1.3-7.7) k/uL Lymphocytes # 1.4 (1.0-4.8) k/uL Monocytes # 0.6 (0-1.0) k/uL Eosinophils # 0.1 (0-0.7) k/uL Basophils # 0.0 (0-0.2) k/uL PT 10.0 (10.0-12.5) sec INR 0.9 (<1.2) APTT 24.5 (22.0-30.0) sec Sodium (137-145) mmol/L Potassium (3.5-5.1) mmol/L Chloride (98-107) mmol/L Carbon Dioxide (22-30) mmol/L Anion Gap mmol/L BUN (9-20) mg/dL Creatinine (0.66-1.25) mg/dL Est GFR (CKD-EPI)AfAm (>60 ml/min/1.73 sqM) Est GFR (CKD-EPI)NonAf (>60 ml/min/1.73 sqM) Glucose (74-99) mg/dL POC Glucose (mg/dL) (70-110) mg/dL POC Glu Warehouse Man ID Calcium (8.4-10.2) mg/dL Total Bilirubin (0.2-1.3) mg/dL AST (17-59) U/L ALT (4-49) U/L Alkaline Phosphatase (38-126) U/L Creatine Kinase (55-170) U/L Troponin I (0.000-0.034) ng/mL Total Protein (6.3-8.2) g/dL Albumin (3.5-5.0) g/dL Urine Color Colorless Urine Appearance Clear (Clear) Urine pH 6.5 (5.0-8.0) Ur Specific [place] 1.025 (1.001-1.035) Urine Protein Negative (Negative) Urine Glucose (UA) Negative (Negative) Urine Ketones Negative (Negative) Urine Blood Negative (Negative) Urine Nitrite Negative (Negative) Urine Bilirubin Negative (Negative) Urine Urobilinogen <2.0 (<2.0) mg/dL Ur Leukocyte Esterase Negative (Negative) 08/12/23 08/12/23 08/12/23 Range/Units 19:49 19:49 19:58 WBC (3.8-10.6) k/uL RBC (4.30-5.90) m/uL Hgb (13.0-17.5) gm/dL Hct (39.0-53.0) % MCV (80.0-100.0) fL MCH (25.0-35.0) pg MCHC (31.0-37.0) g/dL RDW (11.5-15.5) % Plt Count (150-450) k/uL MPV Neutrophils % % Lymphocytes % % Monocytes % % Eosinophils % % Basophils % % Neutrophils # (1.3-7.7) k/uL Lymphocytes # (1.0-4.8) k/uL Monocytes # (0-1.0) k/uL Eosinophils # (0-0.7) k/uL Basophils # (0-0.2) k/uL PT (10.0-12.5) sec INR (<1.2) APTT (22.0-30.0) sec Sodium 141 (137-145) mmol/L Potassium 4.1 (3.5-5.1) mmol/L Chloride 108 H (98-107) mmol/L Carbon Dioxide 21 L (22-30) mmol/L Anion Gap 12 mmol/L BUN 14 (9-20) mg/dL Creatinine 0.68 (0.66-1.25) mg/dL Est GFR (CKD-EPI)AfAm >90 (>60 ml/min/1.73 sqM) Est GFR (CKD-EPI)NonAf >90 (>60 ml/min/1.73 sqM) Glucose 82 (74-99) mg/dL POC Glucose (mg/dL) 85 (70-110) mg/dL POC Glu Warehouse Man ID Anayeli [place] Calcium 9.4 (8.4-10.2) mg/dL Total Bilirubin 0.5 (0.2-1.3) mg/dL AST 23 (17-59) U/L ALT 18 (4-49) U/L Alkaline Phosphatase 127 H (38-126) U/L Creatine Kinase 83 (55-170) U/L Troponin I <0.012 (0.000-0.034) ng/mL Total Protein 7.7 (6.3-8.2) g/dL Albumin 4.4 (3.5-5.0) g/dL Urine Color Urine Appearance (Clear) Urine pH (5.0-8.0) Ur Specific [place] (1.001-1.035) Urine Protein (Negative) Urine Glucose (UA) (Negative) Urine Ketones (Negative) Urine Blood (Negative) Urine Nitrite (Negative) Urine Bilirubin (Negative) Urine Urobilinogen (<2.0) mg/dL Ur Leukocyte Esterase (Negative) Critical Care Time Critical Care Time: Yes Total Critical Care Time: 35 Disposition Clinical Impression: Cerebrovascular accident (CVA) Disposition: ADMITTED IP TO THIS HOSP Condition: Stable Is patient prescribed a controlled substance at d/c from ED?: No Time of Disposition: 20:57
[2023-08-12 20:29] LABS: Basophils % (A) 0 %; Eosinophils # (A) 0.1 k/uL (0-0.7); Eosinophils % (A) 1 %; HGB 15.9 gm/dL (13.0-17.5); Lymphocytes # (A) 1.4 k/uL (1.0-4.8); Lymphocytes % (A) 15 %; MCH 30.9 pg (25.0-35.0); MCHC 33.2 g/dL (31.0-37.0); MCV 93.2 fL (80.0-100.0); Mean Platelet Volume 8.1; Monocytes # (A) 0.6 k/uL (0-1.0); Monocytes % (A) 6 %; Neutrophils % (A) 76 %; Platelet Count 236 k/uL (150-450); RBC 5.15 m/uL (4.30-5.90); RDW 13.1 % (11.5-15.5); WBC 9.2 k/uL (3.8-10.6)
[2023-08-12 20:39] LABS: ALT 18 U/L (4-49); AST 23 U/L (17-59); African American GFR (CKD) >90 (>60 ml/min/1.73 sqM); Albumin 4.4 g/dL (3.5-5.0); Alkaline Phosphatase 127 U/L (38-126); Anion Gap 12 mmol/L; Blood Urea Nitrogen 14 mg/dL (9-20); Calcium 9.4 mg/dL (8.4-10.2); Carbon Dioxide 21 mmol/L (22-30); Chloride 108 mmol/L (98-107); Creatine Kinase 83 U/L (55-170); Glucose 82 mg/dL (74-99); INR 0.9 (<1.2); Non-African American GFR(CKD) >90 (>60 ml/min/1.73 sqM); Partial Thromboplastin Time 24.5 sec (22.0-30.0); Potassium 4.1 mmol/L (3.5-5.1); Sodium 141 mmol/L (137-145); Total Bilirubin 0.5 mg/dL (0.2-1.3); Total Protein 7.7 g/dL (6.3-8.2)
--- NOTE | 2023-08-12 20:51 | CT ---
EXAMINATION TYPE: CT brain wo con CT DLP: 1216.9 mGycm, Automated exposure control for dose reduction was used. DATE OF EXAM: 08/12/2023 8:10 PM COMPARISON: CT head 04/08/2023. CLINICAL INDICATION:Male, 62 years old with history of Neuro deficit, acute, stroke suspected, Neuro deficit, acute, stroke suspected. LEFT SIDED WEAKNESS HX OF STROKES TECHNIQUE: Brain: Axial CT images of the brain were obtained with coronal and sagittal reformats created and rev iewed. Contrast used: None. Oral contrast used: None. FINDINGS: Extra-axial spaces: No abnormal extra-axial fluid collections. Ventricular system: Appear dilated in proportion to the degree of cerebral atrophy. Cerebral parenchyma: No increased attenuation to suggest acute intraparenchymal hemorrhage. The gra y-white matter interface appears maintained. Mild/moderate generalized brain atrophy. Scattered hyp oattenuating areas are seen within the cerebral white matter, nonspecific but most often seen with ch ronic microvascular ischemic changes; mild in degree. Redemonstration of encephalomalacia in the rig ht occipital lobe and band of hypoattenuation extending to the right temporal lobe compatible with re mote infarct/insult. Small lacunar infarct again seen adjacent to the right lateral ventricle. Cerebellum: No acute abnormality. Mass effect: No evidence of mass effect or midline shift. Intracranial vasculature: Calcifications of the larger arteries at the skull base. No definite hyperd ense vessel sign. Soft tissues: Unremarkable. Visualized orbits: Orbital contents appear grossly intact. Calvarium/osseous structures: No evidence of calvarial fracture. Paranasal sinuses and mastoid air cells: Sinuses are clear. Mild S-shaped nasal septal deviation. MRI is more sensitive for detecting acute processes such as infarct, and may be considered if clinica lly warranted. IMPRESSION: 1. No acute intracranial CT abnormality. 2. Mild atrophy and chronic microvascular ischemic changes. 3. Remote right-sided infarct, similar to previous.
--- NOTE | 2023-08-12 21:12 | CT ---
EXAMINATION TYPE: CT angio head neck DATE OF EXAM: 08/12/2023 8:23 PM COMPARISON: . CLINICAL INDICATION:Male, 62 years old with history of Neuro deficit, acute, stroke suspected; PHH, N euro deficit, acute, stroke suspected. LEFT SIDED WEAKNESS HX OF STROKES TECHNIQUE: Axially acquired helical CT angiogram of the head and neck was obtained with contrast. Axi al images are supplemented with 3D reconstructions which were post-processed at an independent workst [facility]critical [facility] hospital. NASCET criteria used. Contrast used: 65ml mL of Isovue 370 with IV Contrast, Oral contrast used: None. CT DLP: 465.1 mGycm, Automated exposure control for dose reduction was used. FINDINGS: CTA Neck: 4 vessel aortic arch is shown, with the left vertebral artery also arising from the arch. Fusiform ectasia of the ascending aorta measures 3.5 cm. Mild atherosclerosis in the proximal left fall bclavian artery without significant stenosis. There may be mild to moderate stenosis of the proximal left vertebral artery. There is no significant atherosclerotic plaque at the origin of the right vert ebral artery. Right vertebral is dominant. The common carotid, external carotid, cervical segments of the internal carotid, and the cervical segments of the vertebral arteries are patent. Mixed atherosc lerotic disease at the right carotid bifurcation and proximal ICA, resulting in less than 50% diamete r stenosis of the ICA. Minimal plaque at the left carotid bifurcation, with no significant stenosis. Both ICAs are thereafter patent to the skull base. Other: Included upper chest shows moderate upper lobe emphysematous changes and portion of a small to moderate left pleural effusion, which may be partially loculated. A few pulmonary nodules are seen i n the right upper lobe, the largest 9 mm. No apical pneumothorax is seen. CTA Head: Right vertebral is dominant. Left vertebral likely essentially ends as the PICA, with possi ble minimal contribution to the basilar artery, which is patent. No evidence of basilar tip aneurysm. There is a origin of the left PHOTOGRAPHIC RESTORER, rising from the anterior circulation and appears patent. Po ssible minor contribution from the basilar artery. The right PHOTOGRAPHIC RESTORER appears relatively diminutive but gr ossly patent. Mild irregularity of the bilateral disease intervention specialist likely reflective of atherosclerotic disease. A sizable right posterior communicating artery is not seen. There are calcifications of the carotid si phons without significant stenosis seen. MCAs are patent without evidence of occlusion or high-grade stenosis. Left A1 segment of the anterior cerebral artery is hypoplastic, with a normally patent righ t anterior cerebral artery providing the majority supply to the more distal ACAs. No hemodynamically significant stenosis, aneurysm, dissection, or arteriovenous malformation is shown. Other: The dural venous sinuses appear patent without evidence of thrombosis. Arachnoid granulations noted a t the bilateral TV sinuses. IMPRESSION: CTA neck: 1. No dissection or pseudoaneurysm detected in the carotid or vertebral arteries in the neck. 2. Atherosclerotic disease is present, with mild less than 50% stenosis of the proximal right ICA. 3. Partially seen chest findings include fusiform ectasia of the ascending aorta, small to moderate l eft pleural effusion, multiple right upper lobe pulmonary nodules the largest 9 mm. Recommend further evaluation to begin with nonemergent outpatient CT of the chest. CTA head: 1. No intracranial major vascular occlusion or significant stenosis, or sizable aneurysm detected in the limits of CTA.
[2023-08-12 21:14] LABS: Appearance,Urine Clear (Clear); Bilirubin,Urine Negative (Negative); Blood,Urine Negative (Negative); Color,Urine Colorless; Glucose,Urine (UA) Negative (Negative); Ketones,Urine Negative (Negative); Leukocyte Esterase,Urine Negative (Negative); Nitrite,Urine Negative (Negative); PH, Urine 6.5 (5.0-8.0); Protein,Urine Negative (Negative); Specific Gravity,Urine 1.025 (1.001-1.035); Urobilinogen,Urine <2.0 mg/dL (<2.0)
[2023-08-12] MEDS: ASPIRIN 325 MG TAB PO STA (21:17)
[2023-08-12] MEDS: SODIUM CHLORIDE 0.9% 1,000 ML IV SCH (21:21)
[2023-08-12] MEDS: SODIUM CHLORIDE 0.9% 500 ML 500 ML IV ONE (21:21)
[2023-08-12] MEDS ORDERED: NICOTINE 14MG/24HR PATCH TRANSDERM PRN (22:40)
[2023-08-12] MEDS: ACETAMINOPHEN TAB 325 MG TAB PO PRN (22:53)
--- NOTE | 2023-08-12 23:58 | XR ---
EXAMINATION TYPE: XR chest 2V DATE OF EXAM: 08/12/2023 8:15 PM CLINICAL INDICATION:Male, 62 years old with history of altered mental status; [facility] COMPARISON: 10/16/2022 TECHNIQUE: XR chest 2V Frontal and lateral views of the chest. CLINICAL INDICATION:Male, 62 years old with history of altered mental status; FINDINGS: Lungs/Pleura: Loculated left pleural effusion with similar streaky atelectasis. Pulmonary vascularity: Unremarkable. Heart/mediastinum: Cardiomediastinal silhouette is unremarkable. A loop recorder projects over the le ft thorax over the heart. Musculoskeletal: No acute osseous pathology. Degenerative changes of the shoulders and spine. IMPRESSION: Loculated left pleural effusion with streaky atelectasis, similar to prior.
[2023-08-13] MEDS: PANTOPRAZOLE 40 MG TABLET PO SCH (08:09)
[2023-08-13 11:05] LABS: Chol/HDL Ratio 4.24 Ratio; LDL Cholesterol,Calculated 117.9 mg/dL (0.0-131.0)
--- NOTE | 2023-08-13 11:22 | CA ---
Transthoracic Echo Report Name: Marcin Griffiths Age: 62 Gender: M : 1960 Exam Date: 08/13/2023 10:00 Exam Location: [facility] Ht (in): 69 Wt (lb): 170 Ordering Physician: Marcin Freeman MD Attending/Referring Phys: [id number], [employer] Leader Missael Galvan Procedure CPT: Indications: Thrombus Cardiac Hx: Technical Quality: Fair Contrast 1: Total Dose (mL): Contrast 2: Total Dose (mL): MEASUREMENTS (Male / Female) Normal Values 2D ECHO LV Diastolic Diameter PLAX 4.9 cm 4.2 - 5.9 / 3.9 - 5.3 cm LV Systolic Diameter PLAX 2.9 cm IVS Diastolic Thickness 1.0 cm 0.6 - 1.0 / 0.6 - 0.9 cm LVPW Diastolic Thickness 1.1 cm 0.6 - 1.0 / 0.6 - 0.9 cm LV Relative Wall Thickness 0.4 RV Internal Dim ED PLAX 2.8 cm LVOT Diameter 2.1 cm Aortic Root Diameter 3.1 cm LA Systolic Diameter LX 3.4 cm 3.0 - 4.0 / 2.7 - 3.8 cm LV Diastolic Volume MOD BP 46.6 cm??? 67 - 155 / 56 - 104 cm??? LV Systolic Volume MOD BP 21.6 cm??? - 58 / 19 - 49 cm??? LV Ejection Fraction MOD BP 53.7 % >= 55 % LV Cardiac Index MOD BP 667.5 cm???/min???m??? LV Diastolic Volume MOD 4C 45.9 cm??? LV Systolic Volume MOD 4C 27.1 cm??? LV Ejection Fraction MOD 4C 40.9 % LV Cardiac Index MOD 4C 501.5 cm???/min???m??? LV Diastolic Length 4C 6.0 cm LV Systolic Length 4C 5.3 cm LV Diastolic Volume MOD 2C 47.4 cm??? LV Systolic Volume MOD 2C 15.4 cm??? LV Ejection Fraction MOD 2C 67.4 % LV Cardiac Index MOD 2C 854.4 cm???/min???m??? LV Diastolic Length 2C 5.9 cm LV Systolic Length 2C 4.7 cm LA Volume 37.9 cm??? 18 - 58 / 22 - 52 cm??? LA Volume Index 19.5 cm???/m??? 16 - 28 cm???/m??? Ascending Aorta Diameter 3.1 cm DOPPLER AV Peak Velocity 119.4 cm/s AV Peak Gradient 5.7 mmHg LVOT Peak Velocity 98.0 cm/s LVOT Peak Gradient 3.8 mmHg LVOT Velocity Time Integral 20.9 cm LVOT Stroke Volume 70.0 cm??? LVOT Stroke Volume Index 36.3 ml/m??? LVOT Cardiac Index 1870.1 cm???/min???m??? AV Area Cont Eq pk 2.8 cm??? MV Peak Velocity 94.5 cm/s MV Peak Gradient 3.6 mmHg MV Mean Velocity 40.7 cm/s MV Mean Gradient 0.9 mmHg MV Velocity Time Integral 45.8 cm MR Peak Velocity 190.0 cm/s MR Peak Gradient 14.4 mmHg Mitral E Point Velocity 84.8 cm/s Mitral A Point Velocity 56.7 cm/s Mitral E to A Ratio 1.5 MV Deceleration Time 279.7 ms MV E' Velocity 10.0 cm/s Mitral E to MV E' Ratio 8.4 TR Peak Velocity 211.4 cm/s TR Peak Gradient 17.9 mmHg Right Ventricular Systolic Press 22.9 mmHg PV Peak Velocity 86.6 cm/s PV Peak Gradient 3.0 mmHg FINDINGS Left Ventricle Normal LV size and wall thickness. Left ventricular ejection fraction is estimated at 55-60 %.normal left ventricular wall motion. Normal left ventricular diastolic filling pattern. Right Ventricle Normal right ventricular size. Right Atrium Normal right atrial size. Left Atrium Normal left atrial size. Mitral Valve Structurally normal mitral valve. Mild MR. Aortic Valve Trileaflet aortic valve. No aortic valve stenosis or regurgitation. Tricuspid Valve Structurally normal tricuspid valve. Mild TR. Pulmonic Valve Structurally normal pulmonic valve. No pulmonic regurgitation. Pericardium Normal pericardium. Aorta Normal size aortic root and proximal ascending aorta. CONCLUSIONS 1. Normal left ventricular size and systolic function 2. Mild mitral and tricuspid regurgitation Previewed by: Dr. Monty Reyna MD (Electronically Signed) Final Date: 13 August 2023 11:21
--- NOTE | 2023-08-13 12:55 | P.CNNES ---
History of Present Illness Consult date: 08/13/23 Requesting physician: Marcin Freeman Reason for Consult: cva History of Present Illness: This is a 62-year-old gentleman who presented emergency department. In because of slurring the speech, left-sided numbness and shaking of upper extremity. Patient is accompanied with his was at bedside. Patient stated that the yesterday around 1 PM just prior to work his blood pressure was elevated and systolic was 180s then all of a sudden he noticed that he is having neck pain with a headache and hewas having uncontrollable shaking of bilateral upper extremity lasting for about an hour. He took his blood pressure medication. Then he went to work while at work he was told by his boss that he is having slurring the speech and he knows he is having the numbness over the left side upper and lower extremity. He denies any loss of consciousness. Denies of any urinary or bowel incontinence or tongue bite. He does have prior history of strokes residual left homonymous hemianopsia as well as the numbness over the left face. Patient is on aspirin 81 mg, Plavix 75 mg. Denies any history of seizures. Some of the workup during his hospital visit consisted of: CBC with differential is unremarkable Initial serum glucose is 82, sodium is 141, BUN/creatinine is within normal limits Lipid panel is triglyceride is 102, cholesterol is 181, LDL is 117 and HDL is 42 CT of the head is reported as no acute intracranial CT abnormality. Mild atrophy and chronic microvascular ischemic changes. Remote right sided infarct similar to previous. I personally reviewed the CT and I agree there is no acute subacute ischemia. The patient does have an supplements over the right occipital. CT angiography of the head and neck was reported as 4 that had that reported as no intracranial major vascular occlusion or significant stenosis or sizable aneurysm detected in the limits of CT angiography. CT angiography of the neck it's reported as no dissection or sooner aneurysm detected in the carotid or vertebral arteries in the neck. HIS carotid disease is present, with mild less than 50% stenosis of the proximal right ICA. Partially seen chest finding included a fusiform ectasia of the ascending aorta, small to moderate left pleural effusion, multiple right upper lobe pulmonary nodule the largest 9 mm. Recommend further evaluation to begin with nonemergent outpatient CT chest Review of Systems Review of system: The 12 point system was reviewed and apparent positive and negative per HPI. Past Medical History Past Medical History: CVA/TIA, Hyperlipidemia, Hypertension, Rheumatoid Arthritis (RA) Additional Past Medical History / Comment(s): "muscle spasms in heart", hiatal hernia, migraines, had stroke in Sept-no peripheral vision left eye, not currently needing BP med-made his BP too low History of Any Multi-Drug Resistant Organisms: None Reported Past Surgical History: Appendectomy, Back Surgery, Cholecystectomy, Heart Catheterization, Tonsillectomy Additional Past Surgical History / Comment(s): DENTAL IMPLANTS Past Anesthesia/Blood Transfusion Reactions: Family History of Problems w/ Anesthesia Additional Past Anesthesia/Blood Transfusion Reaction / Comment(s): sister- long time to come out Past Psychological History: No Psychological Hx Reported Smoking Status: Current every day smoker - Past Family History Father History Unknown: Yes Mother Family Medical History: No Reported History Brother(s) Family Medical History: No Reported History Sister(s) Family Medical History: Rheumatoid Arthritis (RA) Daughter(s) Family Medical History: No Reported History Medications and Allergies Home Medications Medication Instructions Recorded Confirmed Type Aspirin 81 mg PO DAILY chew 02/26/18 08/12/23 Rx Amitriptyline HCl [Elavil] 10 mg PO HS 08/14/22 08/12/23 History Atorvastatin [Lipitor] 80 mg PO HS 10/16/22 08/12/23 History Sildenafil Citrate 50 mg PO Q72H PRN 10/16/22 08/12/23 History Pantoprazole Sodium [Protonix] 40 mg PO DAILY #30 tab 10/19/22 08/12/23 Rx Clopidogrel [Plavix] 75 mg PO DAILY 08/12/23 08/12/23 History Metoprolol Tartrate [Lopressor] 50 mg PO HS 08/12/23 08/12/23 History amLODIPine [Norvasc] 5 mg PO DAILY 08/12/23 08/12/23 History Allergies Allergy/AdvReac Type Severity Reaction Status Date / Time rofecoxib [From Vioxx] Allergy Severe Swelling Verified 08/12/23 21:06 Physical Examination - Vital Signs Vital Signs: Vital Signs Temp Pulse Pulse Resp BP BP Pulse Ox 08/13/23 08:10 97.9 F 53 L 17 143/79 97 08/13/23 03:26 85 16 112/64 98 08/13/23 00:00 65 18 129/72 98 08/12/23 21:46 98 F 53 L 18 152/71 100 08/12/23 21:37 60 141/79 99 08/12/23 21:00 61 18 142/76 98 08/12/23 20:45 59 L 141/81 100 08/12/23 20:30 65 16 145/78 100 08/12/23 20:15 65 18 151/77 99 08/12/23 20:00 65 16 121/97 99 08/12/23 19:46 67 18 153/87 98 08/12/23 19:31 97.9 F 69 18 166/92 99 Intake and Output 08/12/23 08/13/23 08/13/23 22:59 06:59 14:59 Other: Voiding Method Toilet Toilet Urinal Urinal # Voids 1 Weight 77.111 kg GENERAL: The patient is lying in bed and is not in acute distress. NEUROLOGICAL: Higher mental function: The patient is awake, alert, oriented to self, place and time. Patient is following commands. No aphasia and no neglect. Cranial nerves: The pupils are round, equal and reactive to light and accommodation. Visual quevedo is left homonymous hemianopsia (old). . Extraocular movement is intact no nystagmus is noted. Facial sensation is normal to touch throughout. The facial strength is is decrease to touch over the left V2/V3 that is old. Hearing is normal bilaterally to hand rub. Tongue is midline and moved [id number] without any difficulty. No dysarthria is noted. Shoulder shrug is normal bilaterally. Motor: The strength is 5 over 5 throughout. Normal tone and bulk. Cerebellum: Normal finger to nose heel to schmidt bilaterally. Sensation: Sensation is normal to touch throughout. Reflexes (right/left): 2+ throughout. Plantars are downgoing bilaterally. Results - Laboratory Findings CBC and BMP: 08/12/23 19:49 08/12/23 19:49 Abnormal Lab Findings: Abnormal Labs 08/12/23 19:49 Chloride 108 H Carbon Dioxide 21 L Alkaline Phosphatase 127 H Assessment and Plan Assessment: This is a 62-year-old gentleman who presents in the department because yesterday around 1 PM he fell his blood pressure was elevated systolic in the 180s and he noticed neck pain going to the head with the uncontrollable shaking of bilateral upper extremities without loss of consciousness lasting for an hour then when he was at work he was notified by his boss that he had the speech was left-sided numbness that he noticed in the left upper and lower. His symptoms has resolved. Transient episode of left-sided numbness over upper and lower extremity with uncomfortable shaking of bilateral upper extremity: Rule out of focal seizure without loss of consciousness. Other differential is possible TIA History of right occipital stroke with residual left homonymous hemianposia History of lacunar stroke over the right thalamus with residual numbness over the left face as well left basal ganglia due to chronic small vessel disease due to his risk factors Underlying hypertension Tobacco use Plan: He was given aspirin 325 once in the ED. I resumed his home aspirin 81mg daily, Plavix 75mg daily. Patient does have acute ischemic stroke then the Allsop Plavix and I'll start the patient on Brilinta 90mg daily. Patient was started on Lipitor 80 mg daily at bedtime by the primary team MRI of the brain is ordered and pending. I ordered a routine EEG. 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 Patient was notified that his episode could not rule out a seizure since he had uncontrollable shaking. I notified him that if it is a seizure then per the [place] [employer] [place] avoid driving for 6 month until seizure-free, avoid heights, avoids swimming unassisted or using heavy machinery He was counseled on tobacco cessation We'll defer the rest of the medical management to primary team On discharge recommend the patient to follow-up with his neurologist team as an outpatient within 2 weeks. He follows up with Dr. Lavinia FOURNIER. DVT prophylaxis the patient on subcu heparin 5000 units every 12 hours Plan is discussed with the patient and his was at bedside. Thank you for the consultation Time with Patient: Greater than 30
[2023-08-13] MEDS: ASPIRIN 81 MG PO SCH (14:27)
[2023-08-13] MEDS: CLOPIDOGREL 75 MG TAB PO SCH (14:27)
--- NOTE | 2023-08-13 16:56 | MR ---
EXAMINATION TYPE: MR brain wo con DATE OF EXAM: 08/13/2023 1:31 PM CLINICAL INDICATION:Male, 62 years old with history of Neuro deficit, acute, stroke suspected; PHH, COMPARISON: CT angiogram head and neck and CT brain without contrast 08/12/2023, as well as older CT exams. TECHNIQUE: Multi planar, multi sequence imaging was performed through the brain including: T1, T2, In version recovery, Diffusion weighted imaging, and gradient echo imaging. No gadolinium was given. FINDINGS: Region of parenchymal volume loss with increased T2/FLAIR and decreased T1 signal in the right chief credit officer ior occipital lobe, with ex vacuo dilatation of the adjacent portions of the right lateral ventricle, is consistent with an area of encephalomalacia associated with chronic infarct/insult as has been sh own on several prior exams. Somewhat similar to the last MRI 10/17/2022, within this region posteriorl y there is a small irregular somewhat gyriform area which shows increased signal on diffusion with ac companying low signal on ADC map, suggesting acute/subacute infarct. While this is in a similar gener al area as on the last MRI, it appears to be smaller and less extensive than on that exam. No evidenc e of associated hemorrhage or mass effect. Another bandlike area of encephalomalacia extending in the right temporal lobe medially and inferiorl y appears similar to the prior studies and shows no diffusion restriction, consistent with encephalom alacia from chronic infarct/insult. There is mild associated ex vacuo dilatation of the temporal horn associated with this. Ventricles otherwise appear stable and normal in size and position without evidence for hydrocephalus . No evidence of mass effect or midline shift. Cisterns are patent without evidence of herniation. Ma isidra vascular flow voids at the base of the brain are preserved. Susceptibility shows no evidence of s ignificant prior intracranial hemorrhage. There is mild generalized brain atrophy. Redemonstration of relatively few tiny areas of increased T2 FLAIR signal, adjacent to the posterior body of the right lateral ventricle, and subcortical white m atter of the left posterior frontal lobe, essentially nonspecific but most often seen with chronic mi crovascular ischemic changes. No abnormal fluid signal is seen associated with the paranasal sinuses.. Orbits are unremarkable as seen. There is no evidence of concerning calvarial signal abnormality. IMPRESSION: 1. Redemonstration of findings consistent with encephalomalacia from chronic infarct/insult in the r ight occipital lobe. 2. Small area of somewhat gyriform diffusion restriction posteriorly within the region of #1, sugges ts superimposed small acute/subacute infarct within the larger area of chronic infarct. 3. Stable appearance of encephalomalacia extending from the right occipital lobe along the right tem poral lobe medially and inferiorly, consistent with chronic infarct/insult. 4. Otherwise stable exam, with mild generalized atrophy and minimal chronic microvascular ischemic c hanges.
[2023-08-13] MEDS: ATORVASTATIN 80 MG TAB PO SCH (20:00)
[2023-08-13] MEDS: METOPROLOL TARTRATE 50 MG TAB PO SCH (20:00)
[2023-08-13] MEDS: HEPARIN SODIUM,PORCINE 5,000 UNIT/ML 1 ML VIAL SQ SCH (20:00)
--- NOTE | 2023-08-13 23:57 | P.HPIM ---
History of Present Illness H&P Date: 08/13/23 Chief Complaint: Left facial numbness Patient is a 62-year-old male who is known history of CVA/TIA in April 2023 with left eye peripheral vision loss with recovery now, hypertension, rheumatoid arthritis, hyperlipidemia and currently everyday smoker presents to ER with complaints of peripheral vision loss facial numbness and also left upper extremity numbness and slurred speech. Patient states that he started having symptoms around 1 PM yesterday. Patient states that the symptoms seem very similar to his prior TIA. His left upper extremity became numb and started shaking lasted for about half an hour. Denied any loss of consciousness. No bladder or bowel incontinence. Patient went to work and his boss recommended to go to ER due to his slurred speech. Otherwise patient denies any recent illnesses. No chest pain or shortness of breath no cough or phlegm production. No fever no chills. EKG showed sinus rhythm with incomplete right bundle branch block. CT head showed no acute intracranial CT abnormality. Mild atrophy and chronic microvascular ischemic changes. Remote right-sided infarct. Similar to previous. CT angiogram of the head and neck showed no dissection or pseudoaneurysm detected. Atherosclerotic disease is present with mild less than 50% stenosis of the proximal right ICA. Partially seen chest findings include fusiform ectasia of the ascending aorta, several small to moderate left pleural effusion, multiple right upper lobe pulmonary nodules largest 9 mm recommend further evaluation to begin with nonemergent outpatient CT of the chest. Laboratory data showed WBC 9.2 hemoglobin 15.9 and platelets 236 Sodium 141 potassium 4.1 chloride 108 bicarb is 21 BUN 14 and creatinine 0.68 Troponin 0.012 and LDL 117 Urinalysis is negative for infection. Review of Systems Constitutional: Patient denies any fever or chills . no Generalized weakness. Abdomen: Patient denied any nausea or vomiting or abd. pain Cardiovascular: Patient denies any chest pain or short of breath no palpitations. Respiratory: patient denied any cough . no sputum production. No shortness of breath Neurologic: Patient denied any numbness or tingling or headache. Musculoskeletal: Patient denies any complaints of joint swelling or deformity. Skin: Negative Psychiatric: Negative Endocrine: No heat or cold intolerance. No recent weight gain. Genitourinary: No dysuria or hematuria. All other 14 point ROS negative except the above Past Medical History Past Medical History: CVA/TIA, Hyperlipidemia, Hypertension, Rheumatoid Arthritis (RA) Additional Past Medical History / Comment(s): "muscle spasms in heart", hiatal hernia, migraines, had stroke in Sept-no peripheral vision left eye, not currently needing BP med-made his BP too low History of Any Multi-Drug Resistant Organisms: None Reported Past Surgical History: Appendectomy, Back Surgery, Cholecystectomy, Heart Catheterization, Tonsillectomy Additional Past Surgical History / Comment(s): DENTAL IMPLANTS Past Anesthesia/Blood Transfusion Reactions: Family History of Problems w/ Anesthesia Additional Past Anesthesia/Blood Transfusion Reaction / Comment(s): sister- long time to come out Past Psychological History: No Psychological Hx Reported Smoking Status: Current every day smoker - Past Family History Father History Unknown: Yes Mother Family Medical History: No Reported History Brother(s) Family Medical History: No Reported History Sister(s) Family Medical History: Rheumatoid Arthritis (RA) Daughter(s) Family Medical History: No Reported History Medications and Allergies Home Medications Medication Instructions Recorded Confirmed Type Aspirin 81 mg PO DAILY chew 02/26/18 08/12/23 Rx Amitriptyline HCl [Elavil] 10 mg PO HS 08/14/22 08/12/23 History Atorvastatin [Lipitor] 80 mg PO HS 10/16/22 08/12/23 History Sildenafil Citrate 50 mg PO Q72H PRN 10/16/22 08/12/23 History Pantoprazole Sodium [Protonix] 40 mg PO DAILY #30 tab 10/19/22 08/12/23 Rx Clopidogrel [Plavix] 75 mg PO DAILY 08/12/23 08/12/23 History Metoprolol Tartrate [Lopressor] 50 mg PO HS 08/12/23 08/12/23 History amLODIPine [Norvasc] 5 mg PO DAILY 08/12/23 08/12/23 History Allergies Allergy/AdvReac Type Severity Reaction Status Date / Time rofecoxib [From Vioxx] Allergy Severe Swelling Verified 08/12/23 21:06 Physical Exam Vitals: Vital Signs Temp Pulse Pulse Resp BP BP Pulse Ox 08/13/23 08:10 97.9 F 53 L 17 143/79 97 08/13/23 03:26 85 16 112/64 98 08/13/23 00:00 65 18 129/72 98 08/12/23 21:46 98 F 53 L 18 152/71 100 08/12/23 21:37 60 141/79 99 08/12/23 21:00 61 18 142/76 98 08/12/23 20:45 59 L 141/81 100 08/12/23 20:30 65 16 145/78 100 08/12/23 20:15 65 18 151/77 99 08/12/23 20:00 65 16 121/97 99 08/12/23 19:46 67 18 153/87 98 08/12/23 19:31 97.9 F 69 18 166/92 99 Intake and Output 08/12/23 08/13/23 08/13/23 22:59 06:59 14:59 Other: Voiding Method Toilet Toilet Urinal Urinal # Voids 1 Weight 77.111 kg PHYSICAL EXAMINATION: Patient is lying in the bed comfortably, no acute distress, awake alert and oriented.. HEENT: Normocephalic. Neck is supple. Pupils reactive. Nostrils clear. Oral cavity is moist. Neck reveals no JVD, carotid bruits, or thyromegaly. CHEST EXAMINATION: Trachea is central. Symmetrical expansion. Lung quevedo clear to auscultation and percussion. CARDIAC: Normal S1, S2 with no gallops. No murmurs ABDOMEN: Soft. Bowel sounds present. Nontender. No organomegaly. No abdominal bruits. Extremities: reveal no edema. No clubbing or cyanosis Neurologically awake, alert, oriented x3 with well-coordinated movements. No focal deficits noted Skin: No rash or skin lesions. Psychiatric: Coperative. Nonsuicidal, Musculoskeletal: No joint swelling or deformity. Normal range of motion. Results CBC & Chem 7: 08/12/23 19:49 08/12/23 19:49 Labs: Abnormal Lab Results - Last 24 Hours (Table) 08/12/23 Range/Units 19:49 Chloride 108 H (98-107) mmol/L Carbon Dioxide 21 L (22-30) mmol/L Alkaline Phosphatase 127 H (38-126) U/L Thrombosis Risk Factor Assmnt - DVT/VTE Prophylaxis DVT/VTE Prophylaxis: Pharmacologic Prophylaxis ordered - Choose All That Apply Any of the Below Risk Factors Present?: Yes Each Risk Factor Represents 2 Points: Age 61-74 years Thrombosis Risk Factor Assessment Total Risk Factor Score: 2 Thrombosis Risk Factor Assessment Level: Low Risk Assessment and Plan Assessment: Left facial numbness and left upper extremity numbness and shakiness. Possible TIA. Rule out seizures. Recent history of right occipital CVA with left-sided peripheral vision loss Small to moderate left pleural effusion Multiple right upper lobe pulmonary nodules the largest 9 mm. Patient was seen by by his pricing intern and diagnosed to follow-up with in 6 months. Hypertension Hyperlipidemia Chronic ongoing nicotine addiction GI and DVT prophylaxis Plan: Patient will be continued on daily monitoring. Continue with neurochecks. Patient was started back on aspirin Plavix and statins. Current stroke workup including CT head and CT angio of the head and neck. Follow-up 2D echocardiogram and also MRI brain was ordered. EEG without any seizure activity. Start back on home blood pressure medications Norvasc and metoprolol. Continue to follow closely. Discussed with the patient and his at bedside in detail. Neurology is on board. Smoking cessation has been counseled extensively. Time with Patient: Greater than 30
--- NOTE | 2023-08-14 00:02 | EEG ---
ELECTROENCEPHALOGRAM REPORT CLINICAL HISTORY: This is a 62-year-old gentleman with uncontrollable shaking of upper extremities. The video EEG is obtained to evaluate for seizure epileptiform activity. RELEVANT MEDICATIONS: The patient is not on any antiepileptic drugs. EEG TYPE: A routine 21-channel EEG with video using the 10/20 electrode system. DESCRIPTION: Wakefulness and drowsiness are obtained. During awake state, the posterior- dominant rhythm consists of [id number] voltage of 10.5 to 11 hertz activity that is well modulated well sustained. There is no physiological stage 2 sleep architecture. There is no focal slowing. Interictal and ictal is none. ACTIVATION PROCEDURE: Photic stimulation did not evoke a posterior driving response. There is no abnormality during the photic stimulation. Hyperventilation is not performed. CLINICAL INTERPRETATION: This is a normal routine EEG. There is no focal slowing, epileptiform discharge, or seizure on the EEG. A normal routine EEG does not rule out underlying epilepsy. Clinical correlation is recommended. AMY / DEB: [id number] / [id number]
[2023-08-14 09:24] VITALS: RESP 14
--- NOTE | 2023-08-14 14:05 | P.PN ---
Subjective Progress Note Date: 08/14/23 I am following-up with patient and he feels he is doing well and no further body jerks. Denies of any new neurological issues. Objective - Vital Signs Vital signs: Vital Signs Temp 97.9 F 08/14/23 08:00 Pulse 46 L 08/14/23 08:00 Resp 14 08/14/23 08:00 BP 127/73 08/14/23 08:00 Pulse Ox 97 08/14/23 08:00 FiO2 Intake & Output 08/13/23 08/14/23 08/14/23 18:59 06:59 18:59 Intake Total 540 222 Balance 540 222 Intake: Oral 540 222 Other: Voiding Method Toilet Toilet Urinal Urinal # Voids 1 2 - Exam GENERAL: The patient is lying in bed and is not in acute distress. NEUROLOGICAL: Higher mental function: The patient is awake, alert, oriented to self, place and time. Patient is following commands. No aphasia and no neglect. Cranial nerves: The pupils are round, equal and reactive to light and accommodation. Visual quevedo is left homonymous hemianopsia (old). . Extraocular movement is intact no nystagmus is noted. Facial sensation is normal to touch throughout. The facial strength is is decrease to touch over the left V2/V3 that is old. Hearing is normal bilaterally to hand rub. Tongue is midline and moved [id number] without any difficulty. No dysarthria is noted. Shoulder shrug is normal bilaterally. Motor: The strength is 5 over 5 throughout. Normal tone and bulk. Cerebellum: Normal finger to nose heel to schmidt bilaterally. Sensation: Sensation is normal to touch throughout. Reflexes (right/left): 2+ throughout. Plantars are downgoing bilaterally. Some of the workup during his hospital visit consisted of: CBC with differential is unremarkable Initial serum glucose is 82, sodium is 141, BUN/creatinine is within normal limits Lipid panel is triglyceride is 102, cholesterol is 181, LDL is 117 and HDL is 42 CT of the head is reported as no acute intracranial CT abnormality. Mild atrophy and chronic microvascular ischemic changes. Remote right sided infarct similar to previous. I personally reviewed the CT and I agree there is no acute subacute ischemia. The patient does have an supplements over the right occipital. CT angiography of the head and neck was reported as 4 that had that reported as no intracranial major vascular occlusion or significant stenosis or sizable aneurysm detected in the limits of CT angiography. CT angiography of the neck it's reported as no dissection or sooner aneurysm detected in the carotid or vertebral arteries in the neck. HIS carotid disease is present, with mild less than 50% stenosis of the proximal right ICA. Partially seen chest finding included a fusiform ectasia of the ascending aorta, small to moderate left pleural effusion, multiple right upper lobe pulmonary nodule the largest 9 mm. Recommend further evaluation to begin with nonemergent outpatient CT chest MRI Brain: It is reported as redemonstration of findings consistent with encephalomalacia from chronic infarct/insult in the right occipital lobe. Small area of somewhat gyriform diffusion restriction posteriorly within the region of #1, suggests superimposed small acute/subacute infarct within the larger area of chronic infarct. Stable appearance of encephalomalacia extending from the right occipital lobe along the right temporal lobe medially and inferiorly, consistent with chronic infarct/insult. Otherwise stable exam, with mild generalized atrophy and minimal chronic microvascular ischemic changes. Routine EEG: Is normal. Echo: It is reported as Normal left ventircular sizre and systolic function. Mild mitral and tricuspid regurgitation. - Labs CBC & Chem 7: 08/12/23 19:49 08/12/23 19:49 Assessment and Plan Assessment: This is a 62-year-old gentleman who presents in the department because yesterday around 1 PM he fell his blood pressure was elevated systolic in the 180s and he noticed neck pain going to the head with the uncontrollable shaking of bilateral upper extremities without loss of consciousness lasting for an hour then when he was at work he was notified by his boss that he had the speech was left-sided numbness that he noticed in the left upper and lower. His symptoms has resolved. Transient episode of left-sided numbness over upper and lower extremity with uncomfortable shaking of bilateral upper extremity: There is restriction diffusion on the right occipital ontop of right occipital encephalomalcia. There diffusion restriction could be due to acute/subacute ischemia vs seizure because of clinical presentation. 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 Because of concern of possible acute/subacute ischemia recommend stopping Plavix and start him on Brilinta 90mg bid. But he stated he could not afford it in past and will speak with his system support analyst for samples as outpatient. He is on Lipitor 80mg qh. He has a loop recorder and recommend to follow-up with his system support analyst as outpatient and if he is in a-fib or flutter recommend starting anticoagulation and no dual antiplatletes needed from neurological perspective. Continue neuro checks Cardiac monitoring PT, OT and WATER QUALITY MANAGER are consulted. Patient was notified that his episode could not rule out a seizure since he had uncontrollable shaking. I notified him that if it is a seizure then per the [place] avoid driving for 6 month until seizure-free, avoid heights, avoids swimming unassisted or using heavy machinery. Recommend repeating EEG as outpatient or prolonged EEG and will defer that management to his neurologist. Will not start him on antiepileptic since not absolute seizures. He was counseled on tobacco cessation We'll defer the rest of the medical management to primary team Upon discharge, recommend the patient to follow-up with his neurologist team as an outpatient within 2 weeks. He follows up with Dr. Lavinia FOURNIER. DVT prophylaxis the patient on subcu heparin 5000 units every 12 hours Recommend the patient to follow-up with his neurology team (Dr. Kate's team) within 1-2 weeks. Plan is discussed with the patient, his who is at bedside and his nurse. There is no further neurological work-up. Time with Patient: Less than 30
[2023-08-14 16:10] VITALS: BP 132/74; PULSE 41; TEMP 97.8
--- NOTE | 2023-08-15 15:45 | CDI ---
Documentation Clarification Form Date: 08/15/2023 03:23:14 PM From: Leonor Napier Admit Date: 08/12/2023 08:55:00 PM Patient Name: Marcin Griffiths Visit Number: [id number] Discharge Date: 08/14/2023 04:16:00 PM ATTENTION: The Clinical Documentation Specialists (CDI) and [facility] Coding Staff appreciate your assistance in clarifying documentation. Please respond to the clarification below the line at the bottom and electronically sign. The CDI & [facility] Coding staff will review the response and follow-up if needed. Please note: Queries are made part of the Legal Health Record. If you have any questions, please contact the author of this message via ITS. Dr. Nazanin Harrison Conflicting documentation has been found in the medical record. As attending physician, please provide clarification. Your History and Physical, 08/13/23 Left facial numbness and left upper extremity numbness and shakiness. Possible TIA, Rule out seizure. Recent history of right occipital CVA with left sided peripheral vision loss. Subsequent progress note 08/13 and 08/[address] Bautista- Transient episode of left- sided numbness over upper and lower extremity with uncomfortable shaking of bilateral upper extremities. There is restriction diffusion on the right occiput on top of right occipital encephalomalcia. There is diffusion restriction could be due to acute/subacute ischemia vs seizure because of clinical presentation History/Risk Factors: Patient is a 62 year old male with a known history of CVA/TIA in April 2023 with left eye peripheral vision loss, hypertension, rheumatoid arthritis, hyperlipidemia and current every day smoker. Clinical Indicators: presented today with peripheral vision loss, facial numbness, left upper extremity numbness slurred speech. Per the patient symptoms are similar to prior TIA. Denies any recent illness, no chest pain, shortness of breath, or cough. No fever or chills. EKG showed an incomplete RBBB. Brain CT: no acute intracranial CT abnormality, mild atrophy and chronic microvascular ischemic changes, remote right- sided infarct, similar to previous Brain MRI: re-demonstration of encephalomalacia from chronic infarct/ insult in the right occipital lob. Small area of somewhat gyriform diffusion restriction posteriorly within the region of #1, suggests superimposed small acute/subacute infarction within the larger area of chronic infarct. Otherwise stable exam, with mild generalized atrophy and minimal chronic microvascular ischemic changes. EEG: this is a normal routine EEG. There is no focal slowing, epileptiform discharge, or seizure on the EEG Treatment: neurochecks, started back on aspirin, Plavix, and statins, Norvasc and metoprolol. 08/14- home ASA 81mg daily, Plavix 75mg daily, because of concern of possible acute/subacute ischemia, recommend stopping Plavix, and start on Brilinta 90mg bid. Lipitor 80mg qh Please clarify which diagnosis is most appropriate: [ x ] Acute/Subacute CVA [ ] TIA [ ] Seizure [ ] Other (please specify) [ ] Unable to determine MTDD
== END 2023-08-14 16:16 | disposition home or self-care (01) | DRG 65 ==
LOC: EC 19:26 → 3SCARD 20:55
PROVIDERS: ADMIT Internal Medicine; ATTEND Internal Medicine
DX: I63.9 Cerebral infarction, unspecified (principal); J90 Pleural effusion, not elsewhere classified; M06.9 Rheumatoid arthritis, unspecified; E78.5 Hyperlipidemia, unspecified; I10 Essential (primary) hypertension; H53.462 Homonymous bilateral field defects, left side; I69.398 Other sequelae of cerebral infarction; K44.9 Diaphragmatic hernia without obstruction or gangrene; G93.89 Other specified disorders of brain; R47.81 Slurred speech; R56.9 Unspecified convulsions; Z71.6 Tobacco abuse counseling; R91.8 Other nonspecific abnormal finding of lung field; F17.200 Nicotine dependence, unspecified, uncomplicated; I45.10 Unspecified right bundle-branch block; Z88.1 Allergy status to other antibiotic agents; Z79.82 Long term (current) use of aspirin; Z79.02 Long term (current) use of antithrombotics/antiplatelets; Z79.899 Other long term (current) drug therapy
CPT/HCPCS: 36415; 70450; 70496; 70498; 70551; 71046; 80053; 80061; 81003; 82550; 84484; 85025; 85610; 85730; 93005; 93306; 95816; 96360; 99291

== ENCOUNTER 2023-10-14 21:46 | Emergency (ER) | payer BC ==
[2023-10-14 22:21] VITALS: RESP 18
[2023-10-14 23:07] LABS: Appearance,Urine Cloudy (Clear); Bilirubin,Urine Negative (Negative); Blood,Urine Large (Negative); Budding Yeast,Urine Many /hpf; Color,Urine Light Red; Glucose,Urine (UA) Negative (Negative); Ketones,Urine Negative (Negative); Leukocyte Esterase,Urine Negative (Negative); Mucus,Urine Many /hpf; Nitrite,Urine Negative (Negative); PH, Urine 5.5 (5.0-8.0); Protein,Urine 1+ (Negative); RBC,Urine >182 /hpf (0-5); Specific Gravity,Urine 1.023 (1.001-1.035); WBC,Urine 5 /hpf (0-5)
--- NOTE | 2023-10-15 00:57 | ED ---
Male Urogenital HPI - General Chief complaint: Urogenital Stated complaint: Blood in urine Time Seen by Provider: 10/15/23 00:51 Source: patient, RN notes reviewed, old records reviewed Mode of arrival: ambulatory Limitations: no limitations - History of Present Illness Initial comments: This is a 64-year-old male to the ER for evaluation of abdominal pain. Patient presents today for evaluation abdominal pain with nausea vomiting here in the ER. No travel history or sick contacts no fever cough or congestion no other complaints does have long history of surgical intervention MD Complaint: other -: days(s) Location: abdomen Radiation: none Severity: moderate Severity scale (1-10): 4 Consistency: constant Improves with: none Reports: denies other symptoms - Related Data Home Medications Medication Instructions Recorded Confirmed Amitriptyline HCl [Elavil] 10 mg PO HS 08/14/22 08/12/23 Atorvastatin [Lipitor] 80 mg PO HS 10/16/22 08/12/23 Sildenafil Citrate 50 mg PO Q72H PRN 10/16/22 08/12/23 Metoprolol Tartrate [Lopressor] 50 mg PO HS 08/12/23 08/12/23 amLODIPine [Norvasc] 5 mg PO DAILY 08/12/23 08/12/23 Previous Rx's Medication Instructions Recorded Aspirin 81 mg PO DAILY chew 02/26/18 Pantoprazole Sodium [Protonix] 40 mg PO DAILY #30 tab 10/19/22 Ticagrelor [Brilinta] 90 mg PO BID #60 tab 08/14/23 Ciprofloxacin HCl [Cipro] 500 mg PO Q12HR #14 tablet 10/15/23 Allergies Allergy/AdvReac Type Severity Reaction Status Date / Time rofecoxib [From Vioxx] Allergy Severe Swelling Verified 10/14/23 22:04 Review of Systems ROS Statement: Those systems with pertinent positive or pertinent negative responses have been documented in the HPI. ROS Other: All systems not noted in ROS Statement are negative. Past Medical History Past Medical History: CVA/TIA, Hyperlipidemia, Hypertension, Rheumatoid Arthritis (RA) Additional Past Medical History / Comment(s): "muscle spasms in heart", hiatal hernia, migraines, had stroke in Sept-no peripheral vision left eye, not currently needing BP med-made his BP too low History of Any Multi-Drug Resistant Organisms: None Reported Past Surgical History: Appendectomy, Back Surgery, Cholecystectomy, Heart Catheterization, Tonsillectomy Additional Past Surgical History / Comment(s): DENTAL IMPLANTS Past Anesthesia/Blood Transfusion Reactions: Family History of Problems w/ Anesthesia Additional Past Anesthesia/Blood Transfusion Reaction / Comment(s): sister- long time to come out Past Psychological History: No Psychological Hx Reported Smoking Status: Current every day smoker Past Alcohol Use History: None Reported Past Drug Use History: None Reported - Past Family History Father History Unknown: Yes Mother Family Medical History: No Reported History Brother(s) Family Medical History: No Reported History Sister(s) Family Medical History: Rheumatoid Arthritis (RA) Daughter(s) Family Medical History: No Reported History General Exam Limitations: no limitations General appearance: alert, in no apparent distress Head exam: Present: atraumatic, normocephalic, normal inspection Eye exam: Present: normal appearance, PERRL, EOMI. Absent: scleral icterus, conjunctival injection, periorbital swelling ENT exam: Present: normal exam, mucous membranes moist Neck exam: Present: normal inspection. Absent: tenderness, meningismus, lymphadenopathy Respiratory exam: Present: normal lung sounds bilaterally. Absent: respiratory distress, wheezes, rales, rhonchi, stridor Cardiovascular Exam: Present: regular rate, normal rhythm, normal heart sounds. Absent: systolic murmur, diastolic murmur, rubs, gallop, clicks GI/Abdominal exam: Present: soft, normal bowel sounds. Absent: distended, te nderness, guarding, rebound, rigid Extremities exam: Present: normal inspection, full ROM, normal capillary refill. Absent: tenderness, pedal edema, joint swelling, calf tenderness Back exam: Present: normal inspection Neurological exam: Present: alert, oriented X3, CN II-XII intact Psychiatric exam: Present: normal affect, normal mood Skin exam: Present: warm, dry, intact, normal color. Absent: rash Course Vital Signs 10/14/23 10/15/23 22:02 02:37 Temperature 97.9 F 98.1 F Pulse Rate 58 L 62 Respiratory 18 18 Rate Blood Pressure 127/74 122/71 O2 Sat by Pulse 98 Oximetry - Reevaluation(s) Reevaluation #1: Medical records reviewed Reevaluation #2: Patient symptoms improved Reevaluation #3: Patient informed of results and questions answered Reevaluation #4: Was pt. sent in by a medical professional or institution (SHANTANU Bagley, JUNIOR HIGH MATH TEACHER, urgent care, hospital, or detention...) When possible be specific @ -no Did you speak to anyone other than the patient for history (EMS, parent, family, police, friend...)? What history was obtained from this source @ -no Did you review nursing and triage notes (agree or disagree)? Why? @ -agree Are old charts reviewed (outside hosp., previous admission, EMS record, old EKG, old radiological studies, urgent care reports/EKG's, detention records)? Report findings @ -yes Differential Diagnosis (chest pain, altered mental status, abdominal pain women, abdominal pain men, vaginal bleeding, weakness, fever, dyspnea, syncope, hea dache, dizziness, GI bleed, back pain, seizure, CVA, palpatations, mental health, musculoskeletal)? @ -prior EKG interpreted by me (3pts min.). @ -yes X-rays interpreted by me (1pt min.). @ -yes negative for acute disease CT interpreted by me (1pt min.). @ -Yes negative for acute disease U/S interpreted by me (1pt. min.). @ -no What testing was considered but not performed or refused? (CT, X-rays, U/S, labs)? Why? @ -none What meds were considered but not given or refused? Why? @ -none Did you discuss the management of the patient with other professionals (professionals i.e. SHANTANU Bagley, JUNIOR HIGH MATH TEACHER, lab, RT, psych nurse, social media campaign manager, cabin service agent, teacher, hospital security officer, case briefer)? Give summary @ -no Was smoking cessation discussed for >3mins.? @ -no Was critical care preformed (if so, how long)? @ -no Were there social determinants of health that impacted care today? How? (Homelessness, low income, unemployed, alcoholism, drug addiction, transportation, low edu. Level, literacy, decrease access to med. care, custodial, rehab)? @ -none Was there de-escalation of care discussed even if they declined (Discuss DNR or withdrawal of care, Hospice)? DNR status @ -no What co-morbidities impacted this encounter? (DM, HTN, Smoking, COPD, CAD, Cancer, CVA, ARF, Chemo, Hep., AIDS, mental health diagnosis, sleep apnea, morbid obesity)? @ -none Was patient admitted / discharged? Hospital course, mention meds given and route, prescriptions, significant lab abnormalities, going to OR and other pertinent info. @ -63 male to ER with nonspecific abdominal pain and no acute cause of abdominal pain here in the ER. Patient feels well and can be discharged home Discharge Undiagnosed new problem with uncertain prognosis? @ -no Drug Therapy requiring intensive monitoring for toxicity (Heparin, Nitro, Insulin, Cardizem)? @ -no Were any procedures done? @ -no Diagnosis/symptom? @ -Abdominal pain Acute, or Chronic, or Acute on Chronic? @ -Acute Uncomplicated (without systemic symptoms) or Complicated (systemic symptoms)? @ -Complicated Side effects of treatment? @ -no Exacerbation, Progression, or Severe Exacerbation? @ -exacerbation Poses a threat to life or bodily function? How? (Chest pain, [place], [place], pneumonia, PE, COPD, DKA, ARF, appy, cholecystitis, CVA, Diverticulitis, Homicidal, Suicidal, threat to staff... and all critical care pts) @ -no Medical Decision Making - Medical Decision Making 63 male to ER with nonspecific abdominal pain and no acute cause of abdominal pain here in the ER. Patient feels well and can be discharged home - Lab Data Lab Results 10/14/23 Range/Units 22:11 Urine Color Light Red Urine Appearance Cloudy (Clear) Urine pH 5.5 (5.0-8.0) Ur Specific [place] 1.023 (1.001-1.035) Urine Protein 1+ H (Negative) Urine Glucose (UA) Negative (Negative) Urine Ketones Negative (Negative) Urine Blood Large H (Negative) Urine Nitrite Negative (Negative) Urine Bilirubin Negative (Negative) Urine Urobilinogen 2.0 (<2.0) mg/dL Ur Leukocyte Esterase Negative (Negative) Urine RBC >182 H (0-5) /hpf Urine WBC 5 (0-5) /hpf Urine Mucus Many H (None) /hpf Urine Yeast (Budding) Many H (None) /hpf - Radiology Data Radiology results: report reviewed (CT abdomen pelvis x-ray KUB negative for acute disease), image reviewed Disposition Clinical Impression: Hematuria, Abdominal pain Disposition: HOME SELF-CARE Condition: Good Instructions (If sedation given, give patient instructions): Hematuria (ED) Prescriptions: Ciprofloxacin HCl [Cipro] 500 mg PO Q12HR #14 tablet Is patient prescribed a controlled substance at d/c from ED?: No Referrals: Edmund Powers DO [Primary Care Provider] - 1-2 days Clifton Schrader MD [STAFF PHYSICIAN] - 1-2 days Time of Disposition: 02:00
--- NOTE | 2023-10-15 01:24 | XR ---
EXAM: XR Abdomen, 1 View CLINICAL HISTORY: XR Reason: hematuria TECHNIQUE: Frontal supine view of the abdomen/pelvis. COMPARISON: No relevant prior studies available. FINDINGS: Gastrointestinal tract: Scattered gas fluid levels within nondilated colon suggesting ileus. Organs: Surgical clips indicating prior cholecystectomy. 4 mm calcification projecting over the right kidney. Bones/joints: Previous fusion and laminectomy in the lower lumbar spine. No acute fracture. IMPRESSION: 1. Scattered gas fluid levels within nondilated colon suggesting colonic ileus. 2. Surgical clips indicating prior cholecystectomy. 3. 4 mm calcification projecting over the right kidney.
--- NOTE | 2023-10-15 01:30 | CT ---
EXAM: CT Abdomen and Pelvis Without Intravenous Contrast CLINICAL HISTORY: CT Reason: BLOOD IN URINE TECHNIQUE: Axial computed tomography images of the abdomen and pelvis without intravenous contrast. CTDI is 9.2 mGy and DLP is 567 mGy-cm. This CT exam was performed using one or more of the following dose reduction techniques: automated exposure control, adjustment of the mA and/or kV according to patient size, and/or use of iterative reconstruction technique. COMPARISON: KUB from today. FINDINGS: Lung bases: Unremarkable. No mass. No consolidation. ABDOMEN: Liver: Unremarkable. Gallbladder and bile ducts: Previous cholecystectomy. No biliary duct dilation is seen. Pancreas: Unremarkable. No ductal dilation. Spleen: Unremarkable. No splenomegaly. Adrenals: Unremarkable. No mass. Kidneys and ureters: There are several 2-3 mm nonobstructive calyceal calculi in the left kidney and several nonobstructive calyceal calculi in the right kidney measuring up to 4 mm. No hydronephrosis or ureterolithiasis is seen. Stomach and bowel: Scattered gas fluid levels within nondilated colon suggesting mild colonic ileus. The appendix is not visible. No other acute inflammatory changes are seen involving the bowel. No mucosal thickening. PELVIS: Appendix: See above. Bladder: Unremarkable. No stones. Reproductive: Unremarkable as visualized. ABDOMEN and PELVIS: Intraperitoneal space: Unremarkable. No free air. No significant fluid collection. Bones/joints: Previous fusion and laminectomy at L4-5. No acute fracture. No dislocation. Soft tissues: Unremarkable. Vasculature: 4.3 cm infrarenal abdominal aortic aneurysm without evidence of rupture. Lymph nodes: Unremarkable. No enlarged lymph nodes. IMPRESSION: 1. 4.3 cm infrarenal abdominal aortic aneurysm without evidence of rupture. 2. Scattered gas fluid levels within nondilated colon suggesting mild colonic ileus. The appendix is not visible. No other acute inflammatory changes are seen involving the bowel. 3. There are several 2-3 mm nonobstructive calyceal calculi in the left kidney and several nonobstructive calyceal calculi in the right kidney measuring up to 4 mm. No hydronephrosis or ureterolithiasis is seen.
[2023-10-15] MEDS: CIPROFLOXACIN HCL 500 MG TAB PO STA (02:16)
[2023-10-15 02:56] VITALS: BP 122/71; PULSE 62; TEMP 98.1
== END 2023-10-15 02:38 | disposition home or self-care (01) ==
LOC: EC 21:46
DX: R31.9 Hematuria, unspecified (principal); R10.9 Unspecified abdominal pain; I10 Essential (primary) hypertension; E78.5 Hyperlipidemia, unspecified; F17.200 Nicotine dependence, unspecified, uncomplicated; Z79.899 Other long term (current) drug therapy; Z86.73 Personal history of transient ischemic attack (TIA), and cerebral infarction without residual deficits; Z90.49 Acquired absence of other specified parts of digestive tract; Z88.8 Allergy status to other drugs, medicaments and biological substances
CPT/HCPCS: 74018; 74176; 81001; 87086; 99284

== ENCOUNTER → 2023-10-17 | Outpatient (CLI) | payer BC ==
[2023-10-17 16:18] LABS: ALT 23 U/L (10-49); AST 19 U/L (14-35); Albumin 4.1 g/dL (3.8-4.9); Albumin/Globulin Ratio 1.37 Ratio (1.60-3.17); Alkaline Phosphatase 139 U/L (41-126); BUN/Creat Ratio 17.44 Ratio (12.00-20.00); Blood Urea Nitrogen 15.7 mg/dL (9.0-27.0); Calcium 9.2 mg/dL (8.7-10.3); Carbon Dioxide 22.5 mmol/L (21.6-31.8); Chloride 107 mmol/L (96-109); Chol/HDL Ratio 3.97 Ratio; Glucose 99 mg/dL (70-110); LDL Cholesterol,Calculated 100.5 mg/dL (0.0-131.0); Potassium 4.6 mmol/L (3.5-5.5); Sodium 141 mmol/L (135-145); Total Bilirubin 0.4 mg/dL (0.3-1.2); Total Protein 7.1 g/dL (6.2-8.2); VLDL Calculation 18.36 mg/dL (5.00-40.00)
== END | disposition home or self-care (01) ==
LOC: LABWHC1 09:57
PROVIDERS: ATTEND Internal Medicine Interventional Cardiology
DX: E78.2 Mixed hyperlipidemia (principal)
CPT/HCPCS: 36415; 80053; 80061

== ENCOUNTER → 2023-10-23 | Outpatient (CLI) | payer BC ==
--- NOTE | 2023-10-23 14:31 | XR ---
EXAMINATION TYPE: XR KUB DATE OF EXAM: 10/23/2023 2:19 PM CLINICAL INDICATION:Male, 63 years old with history of N201 calculus; COMPARISON: 10/14/2023. TECHNIQUE: One radiographic view of the abdomen was obtained. FINDINGS: The bowel gas pattern is nonspecific without dilated loops of small or large bowel. There i s no evidence for organomegaly or pneumoperitoneum. The osseous structures are intact. No abnormal calcifications are present. Fecal material and gas are demonstrated throughout the colon and rectum. Right upper quadrant cholecystectomy clips. IMPRESSION: Renal calculi poorly visualized due to bowel gas.
== END | disposition home or self-care (01) ==
LOC: RADXRMAIN 14:07
PROVIDERS: ATTEND Urology
DX: N20.1 Calculus of ureter (principal)
CPT/HCPCS: 74018

== ENCOUNTER 2023-10-30 07:55 | Day surgery (SDC) | payer BC ==
--- NOTE | 2023-10-29 19:27 | P.GSHP ---
History of Present Illness H&P Date: 10/29/23 63 yo male with a painful right ureteral stonefor over two weeks that hasnt passed. A ct scan showed it in the right lower ureter. He has been given treatment options and comes for right ureteroscopy with laser lithotripsy - Constitutional Constitutional: Denies chills, Denies fever - EENT Eyes: denies blurred vision, denies pain Ears, nose, mouth and throat: Denies headache, Denies sore throat - Cardiovascular Cardiovascular: Denies chest pain, Denies shortness of breath - Respiratory Respiratory: Denies cough, Denies 7 - Gastrointestinal Gastrointestinal: Denies abdominal pain, Denies diarrhea, Denies nausea, Denies vomiting - Genitourinary (Female) Genitourinary: Denies dysuria, Denies hematuria - Genitourinary (Male) Genitourinary: Denies dysuria, Denies hematuria - Musculoskeletal Musculoskeletal: Denies myalgias - Integumentary Integumentary: Denies pruritus, Denies rash - Neurological Neurological: Denies numbness, Denies weakness - Psychiatric Psychiatric: Denies anxiety, Denies depression - Endocrine Endocrine: Denies fatigue, Denies weight change Past Medical History Past Medical History: CVA/TIA, Hyperlipidemia, Hypertension, Rheumatoid A rthritis (RA) Additional Past Medical History / Comment(s): "muscle spasms in heart", hiatal hernia, migraines, had major stroke in Apr 2023-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 Factor V. bladder empyting issues. current Kidney stones, Loop recorder History of Any Multi-Drug Resistant Organisms: None Reported Past Surgical History: Appendectomy, Back Surgery, Cholecystectomy, Heart Catheterization, Tonsillectomy Additional Past Surgical History / Comment(s): DENTAL IMPLANTS. loop recorder after 1st stroke-2022 Past Anesthesia/Blood Transfusion Reactions: Family History of Problems w/ Anesthesia Additional Past Anesthesia/Blood Transfusion Reaction / Comment(s): sister- long time to come out Smoking Status: Current every day smoker - Past Family History Father History Unknown: Yes Mother Family Medical History: No Reported History Brother(s) Family Medical History: No Reported History Sister(s) Family Medical History: Rheumatoid Arthritis (RA) Daughter(s) Family Medical History: No Reported History Medications and Allergies Home Medications Medication Instructions Recorded Confirmed Type Aspirin 81 mg PO DAILY chew 02/26/18 10/28/23 Rx Amitriptyline HCl [Elavil] 10 mg PO HS 08/14/22 10/28/23 History Atorvastatin [Lipitor] 80 mg PO HS 10/16/22 10/28/23 History Metoprolol Tartrate [Lopressor] 50 mg PO HS 08/12/23 10/28/23 History amLODIPine [Norvasc] 5 mg PO BID 08/12/23 10/28/23 History Ticagrelor [Brilinta] 90 mg PO BID #60 tab 08/14/23 10/28/23 Rx Acetaminophen Tab [Tylenol] 1 tab PO DIRECTED PRN 10/28/23 10/28/23 History Allergies Allergy/AdvReac Type Severity Reaction Status Date / Time rofecoxib [From Vioxx] Allergy Severe Swelling Verified 10/28/23 10:27 Surgical - Exam - General well developed, well nourished, no distress - Eyes normal ocular movement, no icteric - ENT no hearing loss, no congestion - Neck no masses, trachea midline - Respiratory normal respiratory effort, clear to auscultation - Abdomen Abdomen: soft, non tender, no guarding, no rigid, no rebound - Integumentary no rash, no abnormal pigmentation - Neurologic no disoriented, no combative - Psychiatric oriented to time, oriented to person, oriented to place, speech is normal, memory intact Results - Imaging Abdominal x-ray: report reviewed, image reviewed CT scan - abdomen: report reviewed, image reviewed CT scan - pelvis: report reviewed, image reviewed Assessment and Plan Assessment: Impression: right ureterosocpy with laser lihtotripsy
[~2023-10-30 07:55] MED LIST changes: +HYDROmorphone 0.5 MG/0.5 ML SYRINGE IVP PRN; +LIDOCAINE 1% (10MG/ML) FOR IV START INTRADERMA PRN; -LIDOCAINE 1% INJ 10MG/ML (30 ML VIAL-PF) SQ ONE; -SODIUM CHLORIDE 0.9% 1,000 ML IV SCH
--- NOTE | 2023-10-30 08:42 | XR ---
EXAMINATION TYPE: XR KUB DATE OF EXAM: 10/30/2023 Comparison: 10/23/2023 Clinical History: 63-year-old male N20.1 ureteral stone / R31.0 hematuria Findings: Laminectomy changes in the mid to lower lumbar spine. Surgical clip projects over the right iliac bon e. Cholecystectomy clips. Mild stool burden. Scattered small bowel air without any abnormal dilatatio n. There is a 6 mm calcification right paramedian mid abdomen. Possible faint 5 mm calcification left mid abdomen. Faint vascular calcifications. Impression: Possible 6 mm right ureteral stone in the mid abdomen. Possible 5 mm left renal calculus.
[2023-10-30] MEDS: LACTATED RINGERS 1,000 ML IV SCH (08:59)
[2023-10-30] MEDS: ONDANSETRON 4 MG/2 ML VIAL IVP ONE ×2 (09:17→13:28)
[2023-10-30] MEDS: DEXAMETHASONE SOD PHOSPHATE 4 MG/ML 1 ML VIAL IV ONE (09:17)
[2023-10-30 09:18] VITALS: RESP 16
[2023-10-30] MEDS: IOPAMIDOL-370 100ML BTL MISCELLANE ONE ×2 (11:04)
[2023-10-30] MEDS ORDERED: fentaNYL (PF) 50 MCG/ML 2 ML AMP ONE ×2 (11:04→14:36)
[2023-10-30] MEDS ORDERED: MIDAZOLAM 2 MG/2 ML VIAL ONE (11:04)
[2023-10-30] MEDS ORDERED: PROPOFOL 10 MG/ML 20 ML VIAL IV ONE (11:04)
[2023-10-30] MEDS ORDERED: LIDOCAINE 1% INJ 10MG/ML (20 ML MDV) ONE (11:04)
[2023-10-30] MEDS: GENTAMICIN 350 MG in SODIUM CHLORIDE 0.9% 100 ML IVPB PRN (11:07)
--- NOTE | 2023-10-30 12:11 | P.OP ---
Date of Procedure: 10/30/23 Preoperative Diagnosis: Right ureteral calculus Postoperative Diagnosis: Same Procedure(s) Performed: Cystoscopy, right retrograde pyelogram, right ureteroscopy with laser lithotripsy Anesthesia: VAUGHNA Surgeon: Jeff Gibbons Pathology: other Condition: stable (Stone) Disposition: PACU Indications for Procedure: Patient is 63. He has been trying to pass a 6 mm right ureteral stone for several weeks. He continues to have pain and hematuria. He comes for right ureteroscopy laser lithotripsy Description of Procedure: Patient brought operating suite. Given general anesthesia. Placed lithotomy position with a sterile prep and drape. I first 2 fluoroscopy of the right flank in area of right ureter and I'm uncertain whether I see the stone. I then do cystoscopy Foroblique lens and 21-Hebrew sheath. Urethra is normal. The prostate shows some lateral lobe obstruction. The bladder wall shows trabeculation. Within a cone-tipped catheter right retrograde pyelograms performed. The ureters of normal course and caliber up to the proximal ureter was a filling defect at about L3 to L4 consistent with a stone. I then pass an 035 wire up to to the stone and then by the stone. Over the wires passed a [id number] reentry sheath. I passed the flexible ureteroscope up to this stone. With the 275 laser probe the stone broken into tiny fragments and flushed back into the kidney. I basket the largest fragments. At the end of the procedure to pull out ureteroscopy and there is not enough edema to leave a stent. The bladder strain the patient awake and returned recovery in good condition. He tolerated procedure well be discharged home upon recovery and found the office in 2 weeks.
--- NOTE | 2023-10-30 12:43 | FL ---
EXAMINATION TYPE: FL urography retrograde DATE OF EXAM: 10/30/2023 FLUOROSCOPY CYSTO LITHO 37 SEC FL 7.5234 Gycm2 DAP One image submitted
[2023-10-30 12:47] VITALS: TEMP 97.8
[2023-10-30] MEDS ORDERED: ONDANSETRON 4 MG/2 ML VIAL ONE (13:26)
[2023-10-30] MEDS: HYDROcodone/APAP 5-325MG 1 EACH TAB ONE (13:45)
[2023-10-30] MEDS: SIMETHICONE 80 MG CHEWABLE PO ONE (14:17)
[2023-10-30] MEDS: fentaNYL (PF) 50 MCG/ML 2 ML AMP IVP ONE (14:40)
--- NOTE | 2023-10-30 15:53 | CT ---
EXAMINATION TYPE: CODE STROKE: CT brain wo contr DATE OF EXAM: 10/30/2023 COMPARISON: MRI brain 08/13/2023, CT 08/12/2023 HISTORY: 63-year-old male facial numbness post op TECHNIQUE: Examination was done in axial plane without intravenous contrast. Coronal and sagittal r econstructions performed. CT DLP: 526.5 mGycm Automated exposure control for dose reduction was used. FINDINGS: There is encephalomalacia involving the right occipital lobe extending along the posterior right desiree etal lobe and inferior aspect of the right temporal lobe. Some prominent skull base regarding artifac t is present affecting the posterior cranial fossa. Mild generalized supratentorial volume loss. No evidence for acute intracranial hemorrhage, mass, mass effect, midline shift. No hydrocephalus. No effacement of cerebral sulci or basal subarachnoid cisterns. Tapia-white matter differentiation is ma intained. The metastatic calcifications in the carotid siphons. Undulating nasal septum. Mastoid air cells are well pneumatized. Trace mucosal thickening ethmoid air cells. Globes are intact. IMPRESSION: 1. Encephalomalacia right occipital lobe extending forward into the inferior right temporal lobe. Fin dings compatible with area of old infarct. 2. No acute intracranial abnormality seen.
[2023-10-30 15:56] VITALS: BP 128/75; PULSE 47
--- NOTE | 2023-10-30 16:06 | CT ---
EXAMINATION TYPE: CODE STROKE: CTA head neck DATE OF EXAM: 10/30/2023 COMPARISON: 08/12/2023 HISTORY: 63-year-old male facial numbness post op TECHNIQUE: Contiguous axial scanning of the head and neck performed with IV Contrast, patient injecte d with 65 mL of Isovue 300. Coronal and sagittal reconstructions performed. 3-D reconstructions gener ated on a dedicated independent workstation. CT DLP: 526.5 mGycm Automated exposure control for dose reduction was used. FINDINGS: Neck: Small mediastinal lymph nodes are more numerous than compared to 08/12/2023. There is persistent pleu ral effusion seen on the left. Background emphysema. Right upper lobe pulmonary nodules measuring up to 9 mm are largely unchanged. Conventional arch was a branching anatomy. Possible severe stenosis at the origin of the left vertebral artery. The right vertebral artery is do minant. Otherwise, both vertebral arteries are patent throughout the course. Atherosclerotic plaque at the right carotid bifurcation contributes to mild, just under 50% proximal right ICA stenosis. Remainder of the right ICA is patent. Otherwise, the bilateral common and left internal carotid arteries are widely patent. Head: The right vertebral artery is dominant. The V4 segment left vertebral artery becomes even more hypopl astic after the PICA takeoff. The basilar artery is patent. There is persistent origin left USER INTERFACE ARTIST. The P1 segment right posterior cerebral artery is diminutive. The P2 and more distal segments of the right USER INTERFACE ARTIST are not well seen. This appears to be unchanged from 08/12/2023. Scattered mild atherosclerotic changes within the bilateral carotid siphons. Hypoplastic A1 segment l eft anterior cerebral artery. There is an azygos anterior cerebral artery. Dural venous sinuses are patent. No aneurysmal change is identified. IMPRESSION: NECK: 1. POSSIBLE SEVERE STENOSIS AT THE ORIGIN OF THE LEFT VERTEBRAL ARTERY, UNCHANGED FROM 08/12/2023. 2. ANATOMIC VARIATION WITH A DOMINANT RIGHT VERTEBRAL ARTERY IS DOMINANT. 3. MILD, JUST UNDER 50% PROXIMAL RIGHT ICA STENOSIS. THIS MAY BE SLIGHTLY PROGRESSED FROM 08/12/2023. NO HEMODYNAMICALLY SIGNIFICANT STENOSIS. 4. COPD IN THE VISUALIZED UPPER LUNGS. RIGHT UPPER LOBE PULMONARY NODULES MEASURING UP TO 9 MM ARE LA RGELY UNCHANGED FROM 08/12/2023. APPROPRIATE FOLLOW-UP RECOMMENDED. HEAD: 5. Diminutive P1 segment right USER INTERFACE ARTIST. The P2 and more distal segments of the right USER INTERFACE ARTIST are not well see n. The appearance is similar compared to 08/12/2023. This suggests chronic changes and would explain the old right-sided encephalomalacia/infarct. 6. Persistent origin left USER INTERFACE ARTIST. 7. No new large vessel intracranial arterial occlusion, significant stenosis, or aneurysmal change is seen.
== END 2023-10-30 16:32 | disposition home or self-care (01) ==
LOC: OR 07:55
PROVIDERS: ATTEND Urology
DX: N20.1 Calculus of ureter (principal); I10 Essential (primary) hypertension; E78.5 Hyperlipidemia, unspecified; M06.9 Rheumatoid arthritis, unspecified; F17.210 Nicotine dependence, cigarettes, uncomplicated; Z86.73 Personal history of transient ischemic attack (TIA), and cerebral infarction without residual deficits; Z87.442 Personal history of urinary calculi; Z90.49 Acquired absence of other specified parts of digestive tract; Z90.89 Acquired absence of other organs; Z98.890 Other specified postprocedural states; Z79.02 Long term (current) use of antithrombotics/antiplatelets; Z79.82 Long term (current) use of aspirin; Z88.1 Allergy status to other antibiotic agents; Z79.899 Other long term (current) drug therapy
CPT/HCPCS: 52353; 82365; 74420; 74018; 70496; 70450; 70498; C1769; J2250; J1100; J2405; J2001; J3010; J1580; J2704; Q9967 ×2

== ENCOUNTER 2023-11-02 19:55 | Emergency (ER) | payer BC ==
--- NOTE | 2023-11-02 20:10 | ED ---
Recheck HPI - General Chief Complaint: Abdominal Pain Stated Complaint: abd pain constipation Time Seen by Provider: 11/02/23 20:08 Source: patient, RN notes reviewed, old records reviewed Mode of arrival: wheelchair Limitations: no limitations - History of Present Illness Initial Comments: This is a 63-year-old male to the ER for evaluation today. Patient presents for evaluation regards to severe abdominal pain belly pain back pain with history of kidney stones with procedure by urology. Patient's pain is persisting here in the ER with positive nausea no fevers no travel history no sick contacts no other complaints -: days(s) Initial Visit For: laceration Returns Today for: Called Because of Abnormal Lab/Test, persistent/worsening pain related to initial visit Symptoms Since Prior Visit: no new symptoms Associated Symptoms: none Treatments Prior to Arrival: Given Pain Meds on - Related Data Home Medications Medication Instructions Recorded Confirmed Amitriptyline HCl [Elavil] 10 mg PO HS 08/14/22 10/30/23 Atorvastatin [Lipitor] 80 mg PO HS 10/16/22 10/30/23 Metoprolol Tartrate [Lopressor] 50 mg PO HS 08/12/23 10/30/23 amLODIPine [Norvasc] 5 mg PO BID 08/12/23 10/30/23 Acetaminophen Tab [Tylenol] 1 tab PO DIRECTED PRN 10/28/23 10/30/23 Previous Rx's Medication Instructions Recorded Aspirin 81 mg PO DAILY chew 02/26/18 Ticagrelor [Brilinta] 90 mg PO BID #60 tab 08/14/23 HYDROcodone/APAP 5-325MG [[place] 1 tab PO Q4HR PRN #14 tab 10/30/23 5-325] Ondansetron Odt [Zofran ODT] 4 mg PO Q8HR PRN #10 tab 11/02/23 polyethylene glycoL 3350 [Miralax] 17 gm PO DAILY #14 packet 11/02/23 Allergies Allergy/AdvReac Type Severity Reaction Status Date / Time rofecoxib [From Vioxx] Allergy Severe Swelling Verified 10/30/23 08:53 Review of Systems ROS Statement: Those systems with pertinent positive or pertinent negative responses have been documented in the HPI. ROS Other: All systems not noted in ROS Statement are negative. Past Medical History Past Medical History: CVA/TIA, Hyperlipidemia, Hypertension, Rheumatoid Arthritis (RA) Additional Past Medical History / Comment(s): "muscle spasms in heart", hiatal hernia, migraines, had major stroke in Apr 2023-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 Factor V. bladder empyting issues. current Kidney stones, Loop recorder History of Any Multi-Drug Resistant Organisms: None Reported Past Surgical History: Appendectomy, Back Surgery, Cholecystectomy, Heart Catheterization, Tonsillectomy Additional Past Surgical History / Comment(s): DENTAL IMPLANTS. loop recorder after 1st stroke-2022 Past Anesthesia/Blood Transfusion Reactions: Family History of Problems w/ Anesthesia Additional Past Anesthesia/Blood Transfusion Reaction / Comment(s): sister- long time to come out Past Psychological History: No Psychological Hx Reported Smoking Status: Current every day smoker Past Alcohol Use History: None Reported Past Drug Use History: None Reported - Past Family History Father History Unknown: Yes Mother Family Medical History: No Reported History Brother(s) Family Medical History: No Reported History Sister(s) Family Medical History: Rheumatoid Arthritis (RA) Daughter(s) Family Medical History: No Reported History General Exam Limitations: no limitations General appearance: alert, in no apparent distress, anxious Head exam: Present: atraumatic, normocephalic, normal inspection Eye exam: Present: normal appearance, PERRL, EOMI. Absent: scleral icterus, conjunctival injection, periorbital swelling ENT exam: Present: normal exam, mucous membranes moist Neck exam: Present: normal inspection. Absent: tenderness, meningismus, lymphadenopathy Respiratory exam: Present: normal lung sounds bilaterally. Absent: respiratory distress, wheezes, rales, rhonchi, stridor Cardiovascular Exam: Present: normal rhythm, tachycardia, normal heart sounds. Absent: systolic murmur, diastolic murmur, rubs, gallop, clicks GI/Abdominal exam: Present: soft, tenderness, normal bowel sounds. Absent: distended, guarding, rebound, rigid Extremities exam: Present: normal inspection, full ROM, normal capillary refill. Absent: tenderness, pedal edema, joint swelling, calf tenderness Back exam: Present: normal inspection Neurological exam: Present: alert, oriented X3, CN II-XII intact Psychiatric exam: Present: normal affect, normal mood Skin exam: Present: warm, dry, intact, normal color. Absent: rash Course Vital Signs 11/02/23 11/02/23 19:58 22:40 Temperature 98.2 F Pulse Rate 104 H 72 Respiratory 18 18 Rate Blood Pressure 149/82 148/82 O2 Sat by Pulse 97 94 L Oximetry - Reevaluation(s) Reevaluation #1: 11/02/23 20:19 Medical record is reviewed Reevaluation #2: Patient symptoms are improved here in the ER Reevaluation #3: Patient informed of results and questions answered Reevaluation #4: Was pt. sent in by a medical professional or institution (, SHANTANU, STORAGE WHARFAGE CLERK, urgent care, hospital, or half-way...) When possible be specific @ -no Did you speak to anyone other than the patient for history (EMS, parent, family, police, friend...)? What history was obtained from this source @ -no Did you review nursing and triage notes (agree or disagree)? Why? @ -agree Are old charts reviewed (outside hosp., previous admission, EMS record, old EKG, old radiological studies, urgent care reports/EKG's, half-way records)? Report findings @ -yes Differential Diagnosis (chest pain, altered mental status, abdominal pain women, abdominal pain men, vaginal bleeding, weakness, fever, dyspnea, syncope, headache, dizziness, GI bleed, back pain, seizure, CVA, palpatations, mental health, musculoskeletal)? @ -prior EKG interpreted by me (3pts min.). @ -no X-rays interpreted by me (1pt min.). @ -no CT interpreted by me (1pt min.). @ -Yes negative for acute disease U/S interpreted by me (1pt. min.). @ -no What testing was considered but not performed or refused? (CT, X-rays, U/S, labs)? Why? @ -none What meds were considered but not given or refused? Why? @ -none Did you discuss the management of the patient with other professionals (professionals i.e. SHANTANU Bagley, STORAGE WHARFAGE CLERK, lab, RT, psych nurse, social science teacher, wire winding machine tender, teacher, data officer, correctional counselor/case manager)? Give summary @ -no Was smoking cessation discussed for >3mins.? @ -no Was critical care preformed (if so, how long)? @ -no Were there social determinants of health that impacted care today? How? (Homelessness, low income, unemployed, alcoholism, drug addiction, transportation, low edu. Level, literacy, decrease access to med. care, senior care, rehab)? @ -none Was there de-escalation of care discussed even if they declined (Discuss DNR or withdrawal of care, Hospice)? DNR status @ -no What co-morbidities impacted this encounter? (DM, HTN, Smoking, COPD, CAD, Cancer, CVA, ARF, Chemo, Hep., AIDS, mental health diagnosis, sleep apnea, morbid obesity)? @ -none Was patient admitted / discharged? Hospital course, mention meds given and route, prescriptions, significant lab abnormalities, going to OR and other pertinent info. @ - 63 male to the ER for evaluation of chest pain and abdominal pain. Patient presents to the ER for evaluation of unknown cause of symptoms. Patient has normal CT scan here in the ER, symptoms are improved ER feels well and can be discharged home Discharge Undiagnosed new problem with uncertain prognosis? @ -no Drug Therapy requiring intensive monitoring for toxicity (Heparin, Nitro, Insulin, Cardizem)? @ -no Were any procedures done? @ -no Diagnosis/symptom? @ -Abdominal pain and chest pain Acute, or Chronic, or Acute on Chronic? @ -Acute Uncomplicated (without systemic symptoms) or Complicated (systemic symptoms)? @ -Complicated Side effects of treatment? @ -no Exacerbation, Progression, or Severe Exacerbation? @ -exacerbation Poses a threat to life or bodily function? How? (Chest pain, [place], [place], pneumonia, PE, COPD, DKA, ARF, appy, cholecystitis, CVA, Diverticulitis, Homicidal, Suicidal, threat to staff... and all critical care pts) @ -no Reevaluation #5: Differential Abdominal Pain Men: Appendicitis, cholecystitis, diverticulosis, ischemic bowel, pancreatitis, hepatitis, UTI, gastroenteritis, AAA, incarcerated hernia, bowel obstruction, constipation, inflammatory bowel, hepatitis, peptic ulcer disease, splenic infarction, perforated viscus, testicular torsion, this is not meant to be an all-inclusive list Medical Decision Making - Medical Decision Making 63 male to the ER for evaluation of chest pain and abdominal pain. Patient presents to the ER for evaluation of unknown cause of symptoms. Patient has normal CT scan here in the ER, symptoms are improved ER feels well and can be discharged home - Lab Data Result diagrams: 11/02/23 20:21 11/02/23 20:21 Lab Results 11/02/23 11/02/23 11/02/23 Range/Units 20:21 20:21 20:32 WBC 15.7 H (3.8-10.6) k/uL RBC 4.91 (4.30-5.90) m/uL Hgb 15.0 (13.0-17.5) gm/dL Hct 45.0 (39.0-53.0) % MCV 91.7 (80.0-100.0) fL MCH 30.5 (25.0-35.0) pg MCHC 33.3 (31.0-37.0) g/dL RDW 12.9 (11.5-15.5) % Plt Count 244 (150-450) k/uL MPV 7.7 Neutrophils % 85 % Lymphocytes % 7 % Monocytes % 6 % Eosinophils % 1 % Basophils % 0 % Neutrophils # 13.2 H (1.3-7.7) k/uL Lymphocytes # 1.2 (1.0-4.8) k/uL Monocytes # 0.9 (0-1.0) k/uL Eosinophils # 0.2 (0-0.7) k/uL Basophils # 0.0 (0-0.2) k/uL Sodium 135 L (137-145) mmol/L Potassium 4.1 (3.5-5.1) mmol/L Chloride 106 (98-107) mmol/L Carbon Dioxide 22 (22-30) mmol/L Anion Gap 7 mmol/L BUN 22 H (9-20) mg/dL Creatinine 1.00 (0.66-1.25) mg/dL Est GFR (CKD-EPI)AfAm >90 (>60 ml/min/1.73 sqM) Est GFR (CKD-EPI)NonAf 80 (>60 ml/min/1.73 sqM) Glucose 108 H (74-99) mg/dL Calcium 9.0 (8.4-10.2) mg/dL Phosphorus 3.2 (2.5-4.5) mg/dL Magnesium 2.1 (1.6-2.3) mg/dL Total Bilirubin 0.9 (0.2-1.3) mg/dL AST 22 (17-59) U/L ALT 16 (4-49) U/L Alkaline Phosphatase 135 H (38-126) U/L Total Protein 7.1 (6.3-8.2) g/dL Albumin 3.8 (3.5-5.0) g/dL Amylase 54 (30-110) U/L Lipase 64 (23-300) U/L Urine Color Yellow Urine Appearance Clear (Clear) Urine pH 5.5 (5.0-8.0) Ur Specific [place] 1.019 (1.001-1.035) Urine Protein Trace H (Negative) Urine Glucose (UA) Negative (Negative) Urine Ketones 1+ H (Negative) Urine Blood Moderate H (Negative) Urine Nitrite Negative (Negative) Urine Bilirubin Negative (Negative) Urine Urobilinogen <2.0 (<2.0) mg/dL Ur Leukocyte Esterase Negative (Negative) Urine RBC 25 H (0-5) /hpf Urine WBC 1 (0-5) /hpf Amorphous Sediment Rare H (None) /hpf Urine Mucus Rare H (None) /hpf - Radiology Data Radiology results: report reviewed (CT abdomen pelvis is negative for acute disease), image reviewed Disposition Clinical Impression: Chest pain, Abdominal pain Disposition: HOME SELF-CARE Condition: Good Instructions (If sedation given, give patient instructions): Abdominal Pain (ED) Prescriptions: polyethylene glycoL 3350 [Miralax] 17 gm PO DAILY #14 packet Ondansetron Odt [Zofran ODT] 4 mg PO Q8HR PRN #10 tab PRN Reason: nausea/vomiting Is patient prescribed a controlled substance at d/c from ED?: No Referrals: Edmund Powers DO [Primary Care Provider] - 1-2 days Time of Disposition: 22:20
[2023-11-02 20:27] VITALS: RESP 18; TEMP 98.2
[2023-11-02 20:27] LABS: Basophils % (A) 0 %; Eosinophils # (A) 0.2 k/uL (0-0.7); Eosinophils % (A) 1 %; Lymphocytes # (A) 1.2 k/uL (1.0-4.8); Lymphocytes % (A) 7 %; MCH 30.5 pg (25.0-35.0); MCHC 33.3 g/dL (31.0-37.0); MCV 91.7 fL (80.0-100.0); Mean Platelet Volume 7.7; Monocytes # (A) 0.9 k/uL (0-1.0); Monocytes % (A) 6 %; Neutrophils # (A) 13.2 k/uL (1.3-7.7); Neutrophils % (A) 85 %; Platelet Count 244 k/uL (150-450); RBC 4.91 m/uL (4.30-5.90); RDW 12.9 % (11.5-15.5); WBC 15.7 k/uL (3.8-10.6)
[2023-11-02] MEDS: SODIUM CHLORIDE 0.9% 1,000 ML IV STA ×2 (20:27→21:42)
[2023-11-02] MEDS: KETOROLAC 15 MG/ML 1 ML VIAL IVP STA (20:28)
[2023-11-02] MEDS: ONDANSETRON 4 MG/2 ML VIAL IVP STA (20:28)
[2023-11-02] MEDS: HYDROmorphone 1 MG/ML 1 ML SYRINGE IVP STA ×2 (20:28→22:31)
[2023-11-02 20:44] LABS: ALT 16 U/L (4-49); AST 22 U/L (17-59); African American GFR (CKD) >90 (>60 ml/min/1.73 sqM); Albumin 3.8 g/dL (3.5-5.0); Alkaline Phosphatase 135 U/L (38-126); Amylase 54 U/L (30-110); Anion Gap 7 mmol/L; Blood Urea Nitrogen 22 mg/dL (9-20); Carbon Dioxide 22 mmol/L (22-30); Chloride 106 mmol/L (98-107); Glucose 108 mg/dL (74-99); Lipase 64 U/L (23-300); Magnesium 2.1 mg/dL (1.6-2.3); Non-African American GFR(CKD) 80 (>60 ml/min/1.73 sqM); Phosphorus 3.2 mg/dL (2.5-4.5); Potassium 4.1 mmol/L (3.5-5.1); Sodium 135 mmol/L (137-145); Total Bilirubin 0.9 mg/dL (0.2-1.3); Total Protein 7.1 g/dL (6.3-8.2)
[2023-11-02 20:49] LABS: Amorphous Sediment,Urine Rare /hpf; Appearance,Urine Clear (Clear); Bilirubin,Urine Negative (Negative); Blood,Urine Moderate (Negative); Color,Urine Yellow; Glucose,Urine (UA) Negative (Negative); Ketones,Urine 1+ (Negative); Leukocyte Esterase,Urine Negative (Negative); Mucus,Urine Rare /hpf; Nitrite,Urine Negative (Negative); PH, Urine 5.5 (5.0-8.0); Protein,Urine Trace (Negative); RBC,Urine 25 /hpf (0-5); Specific Gravity,Urine 1.019 (1.001-1.035); Urobilinogen,Urine <2.0 mg/dL (<2.0); WBC,Urine 1 /hpf (0-5)
--- NOTE | 2023-11-02 21:42 | CT ---
EXAMINATION TYPE: CT abdomen pelvis wo con CT DLP: 516.4 mGycm, Automated exposure control for dose reduction was used. DATE OF EXAM: 11/02/2023 8:46 PM COMPARISON: None. CLINICAL INDICATION:Male, 63 years old with history of pain; TECHNIQUE: Axial CT of the abdomen and pelvis. Sagittal and coronal reformats were created on a [employer] workstation. Contrast used: mL of , (none if empty) Oral contrast used: (none if empty) FINDINGS: Exam is limited without contrast. LOWER CHEST: Small to moderate left pleural effusion. Bandlike and linear opacities in the lower lobe s consistent with scarring and atelectasis. Heart is mildly enlarged. Moderate coronary arterial and aortic calcifications. ABDOMEN LIVER: Unremarkable GALLBLADDER AND BILE DUCTS: Status post cholecystectomy with clips in the gallbladder fossa. No patho logic biliary dilatation. PANCREAS: Unremarkable. SPLEEN: Unremarkable. ADRENAL GLANDS: Mildly thickened, may be seen with hyperplasia.. KIDNEYS AND URETERS: Moderate to severe right-sided hydroureteronephrosis. No definite distal uretera l calculi are seen, however there are at least 2 mid ureteral calculi seen, one at the level of the m idpelvis measuring up to 2 mm, and one at the level of L4 measuring up to 2.6 mm. There is moderate p erinephric stranding and fluid. A couple punctate calculi in the mid to lower left kidney. No uretera l calculi or hydronephrosis on the left. PELVIS BLADDER: Contains a small focus of gas anteriorly in its lumen. Base of the bladder is indented by th e prostate. REPRODUCTIVE: Prostate appears enlarged measuring up to 4.6 cm transverse. There are a few parenchyma l calcifications. ABDOMEN & PELVIS STOMACH AND BOWEL: Stomach and small bowel are nondistended, no evidence of obstruction. Appendix i s not definitively seen. There is a small radiodensity adjacent to cecum which could represent previo us appendectomy or calcification. No clearly acute abnormality of the colon. PERITONEUM/RETROPERITONEUM: No evidence of ascites or pneumoperitoneum. VASCULATURE: Moderate atherosclerotic calcifications are present throughout the abdominal aorta and b ranches. There is a fusiform infrarenal AAA measuring up to 4 x 4 cm axially. Calcifications of the i liac arteries with some ectasia of the right common iliac up to 1.8 cm. LYMPH NODES: No evidence for lymphadenopathy. SOFT TISSUE/ABDOMINAL WALL: Small to moderate sized bilateral fat-containing inguinal hernias. Small broad-based fat-containing umbilical region hernia. MUSCULOSKELETAL: Moderate diffuse degenerative changes. Laminectomies with removal of the spinous pro cesses L4-L5 and disc space prosthesis at this level. An acute abnormality is not identified. IMPRESSION: 1. Moderate to severe right-sided hydroureteronephrosis, with moderate perinephric stranding and flu id likely related to calyceal rupture. 2. No definite distal ureteral calculi are present, but there are two ureteral calculi seen, one at the level of the mid pelvis measuring up to 2 mm, and one at the level of L4 measuring up to 2.6 mm. 3. A couple punctate calculi in the mid to lower left kidney. No ureteral calculi or hydronephrosis on the left. 4. Small to moderate left pleural effusion. 5. Mild cardiomegaly. Moderate coronary arterial calcifications. 6. Gas in the urinary bladder lumen. Likely considerations include recent instrumentation/catheteriz ation, infection, occult fistula. 7. Enlarged prostate gland, as above. Clinical and PSA correlation recommended. 8. Moderate atherosclerotic calcifications of the abdominal aorta, with fusiform infrarenal AAA ba uring up to 4 x 4 cm axially.
[2023-11-02] MEDS: DICYCLOMINE 10 MG/ML 2 ML AMP IM STA (22:31)
[2023-11-02] MEDS: ONDANSETRON 4 MG ODT STARTER PACK 2 TAB BTL PO STA (22:32)
[2023-11-02] MEDS: TAMSULOSIN 0.4 MG CAP.ER.24H PO STA (22:32)
[2023-11-02] MEDS: SENNOSIDES-DOCUSATE SODIUM 1 EACH TAB PO STA (22:32)
[2023-11-02] MEDS: IBUPROFEN 600 MG STARTER PACK 4 TAB BTL PO STA (22:32)
[2023-11-02 23:12] VITALS: BP 148/82; PULSE 72
== END 2023-11-02 22:41 | disposition home or self-care (01) ==
LOC: EC 19:55
DX: R07.9 Chest pain, unspecified (principal); R10.9 Unspecified abdominal pain; E78.5 Hyperlipidemia, unspecified; I10 Essential (primary) hypertension; F17.200 Nicotine dependence, unspecified, uncomplicated; Z79.899 Other long term (current) drug therapy; Z88.8 Allergy status to other drugs, medicaments and biological substances
CPT/HCPCS: 36415; 80053; 82150; 83690; 83735; 84100; 85025; 81001; 74176; 99285; 96374; 96375 ×2; 96376; 96361; 96372; J0500; J2405; J1170; J1885; S0119

== ENCOUNTER → 2024-01-06 | Outpatient (CLI) | payer BC ==
--- NOTE | 2024-01-06 10:53 | XR ---
EXAMINATION TYPE: XR KUB DATE OF EXAM: 01/06/2024 10:31 AM CLINICAL INDICATION:Male, 63 years old with history of N20.0 calculus; COMPARISON: 10/30/2023 TECHNIQUE: One radiographic view of the abdomen was obtained. FINDINGS: The bowel gas pattern is nonspecific without dilated loops of small or large bowel. There i s no evidence for organomegaly or pneumoperitoneum. The osseous structures are intact. Left renal c alculi measuring up to 4 mm. The right ureteral calculus seen on prior is not visualized. Fecal mater ial and gas are demonstrated throughout the colon and rectum. Right upper quadrant cholecystectomy clips. Multilevel degeneration changes throughout the spine. IMPRESSION: 1. Left 4 mm calculus, the suspected right ureteral calculus is not visualized. 2. Nonspecific bowel gas pattern without radiographic evidence for acute process.
== END | disposition home or self-care (01) ==
LOC: RADXRMAIN 10:08
PROVIDERS: ATTEND Urology
DX: N20.2 Calculus of kidney with calculus of ureter (principal)
CPT/HCPCS: 74018

== ENCOUNTER → 2024-01-15 | Outpatient (CLI) | payer BC ==
--- NOTE | 2024-01-16 15:43 | CT ---
EXAMINATION TYPE: CT abdomen pelvis wo con DATE OF EXAM: 01/15/2024 COMPARISON: 11/02/2023 INDICATION: right flank pain DLP: 417.8 mGycm, Automated exposure control for dose reduction was used. CONTRAST: 0 mL of Isovue 300. Study performed without Oral Contrast TECHNIQUE: Axial images were obtained from above the diaphragm to the pubic rami in the axial plane a t 5 mm thick sections. Reconstructed images are reviewed on the computer in the coronal plane. FINDINGS: Limited CT sections are obtained the lung bases. There is a 0.6 cm nodule in the anterior right lung base. There is a small left pleural effusion. Streak opacities within the lingula. Coronary artery calcifications present.r CT ABDOMEN: Liver: Normal Spleen: Normal Pancreas: Normal Adrenal glands: The adrenal glands are normal. Gallbladder: Surgically absent Kidneys: No masses are evident. No hydronephrosis is present. Previous right hydronephrosis is not id entified. No cysts are present. There is a 0.3 cm nonobstructing renal stone anterior inferior pole left kidney. A nonobstructing posterior lateral left mid kidney stone measures 0.4 cm. Aorta: Vascular calcification is within the aorta. There is fusiform prominence of the abdominal aor ta measuring up to 3.9 cm. This terminates at the bifurcation Inferior vena cava: Normal. CT PELVIS: Loops of bowel within the abdomen and pelvis are normal. The studies without oral contrast limiti ng pelvic evaluation. There are a few small scattered diverticuli. No acute diverticulitis. Appendix: Not identified. No suspicious dilated tubular structures or inflammatory change evident Urinary bladder: Normal. Genitourinary structures: Prostate is prominent Osseous structures: No suspicious lytic or sclerotic lesions. IMPRESSION: 1. Nonobstructing left renal stones. 2. Small left pleural effusion. 3. Fusiform prominence of the abdominal aorta measuring up to 3.9 cm AP dimension. 4. Nodular density right lower lung field
== END | disposition home or self-care (01) ==
LOC: RADCTMAIN 09:00
PROVIDERS: ATTEND Urology
DX: N20.0 Calculus of kidney (principal); J90 Pleural effusion, not elsewhere classified; N23 Unspecified renal colic; R91.1 Solitary pulmonary nodule
CPT/HCPCS: 74176

== ENCOUNTER → 2024-11-10 | Outpatient (CLI) | payer BC ==
[2024-11-10 15:47] LABS: ALT 13 U/L (10-49); AST 15 U/L (14-35); Albumin 4.2 g/dL (3.8-4.9); Albumin/Globulin Ratio 1.31 Ratio (1.60-3.17); Alkaline Phosphatase 129 U/L (41-126); Blood Urea Nitrogen 17.6 mg/dL (9.0-27.0); Calcium 9.3 mg/dL (8.7-10.3); Carbon Dioxide 26.1 mmol/L (21.6-31.8); Chloride 107 mmol/L (96-109); Chol/HDL Ratio 3.35 Ratio; Globulin 3.2 g/dL (1.6-3.3); Glucose 95 mg/dL (70-110); LDL Cholesterol,Calculated 113.9 mg/dL (0.0-131.0); Potassium 4.1 mmol/L (3.5-5.5); Sodium 143 mmol/L (135-145); Total Bilirubin 0.2 mg/dL (0.3-1.2); Total Protein 7.4 g/dL (6.2-8.2)
== END | disposition home or self-care (01) ==
LOC: LABWHC1 11:45
PROVIDERS: ATTEND Internal Medicine Cardiovascular Disease
DX: I10 Essential (primary) hypertension (principal); E78.2 Mixed hyperlipidemia
CPT/HCPCS: 36415; 80053; 80061

== ENCOUNTER → 2024-11-10 | Outpatient (CLI) | payer BC ==
--- NOTE | 2024-11-10 12:00 | CT ---
EXAMINATION TYPE: CT brain wo con DATE OF EXAM: 11/10/2024 COMPARISON: 10/30/2023 CLINICAL INDICATION: Male, 64 years old with history of R51.9 HEADACHE, UNSPECIFIED; PHH, headache an d hx of strokes. TECHNIQUE: CT scan of the head is performed without contrast. CT DLP: 1133.[address] CTDI: mGy Automated exposure control for dose reduction was used. FINDINGS: There is no acute intracranial hemorrhage or midline shift identified. There is diffuse v entricular and sulcal prominence consistent with diffuse age-related cerebral atrophy. Remote insult right occipital lobe. There is low-attenuation in the periventricular white matter consistent with c hronic small vessel ischemic change. The globes are intact and the visualized sinuses are clear. IMPRESSION: No acute intracranial hemorrhage or midline shift. There is diffuse age-related cerebra l atrophy and chronic small vessel ischemic change noted. [facility], , 11/10/2024 11:58 AM
== END | disposition home or self-care (01) ==
LOC: RADCTMAIN 11:28
PROVIDERS: ATTEND Family Medicine
DX: G31.1 Senile degeneration of brain, not elsewhere classified (principal); I67.82 Cerebral ischemia; R51.9 Headache, unspecified
CPT/HCPCS: 70450

== ENCOUNTER → 2024-12-31 | Outpatient (CLI) | payer BC ==
--- NOTE | 2024-12-31 11:28 | MR ---
MRI CERVICAL SPINE: CLINICAL HISTORY: Neck pain travels up into head and Left leg when walking, Headaches, Numbness/weakn ess both arms more on the Left Neck pain travels up into head and Left leg when walking, Headaches, N umbness/weakness both arms more on the Left TECHNIQUE: Multiplanar, multisequence imaging of the cervical spine is performed without IV contrast. COMPARISON: CT cervical spine May 21, 2022 FINDINGS: Sagittal images of the cervical spine show the craniocervical junction to appear within nor mal limits. The cervical and upper thoracic spinal cord is normal in caliber and signal. Stable grad e 1 retrolisthesis C4 on C5. More prominent grade 1 retrolisthesis C3 on C4. The vertebral body heig hts are normal. Mild to moderate disc space narrowing and anterior spurring at the C3-C4 and C4-C5 le vels is identified. The bone marrow signal intensity is within normal limits. Axial images show C2-C3 level to appear within normal limits. Axial images at C3-C4 level show spondylolisthesis with posterior spur disc complex effacing anterior thecal sac and uncovertebral facet degenerative change bilaterally causing mild to moderate right gr eater than left bilateral neural foraminal narrowing. Axial images at C4-C5 level show spondylolisthesis and posterior broad-based disc protrusion effacing anterior thecal sac and uncovertebral facet degenerative change causing moderate to severe right gre ater than left bilateral neural foraminal narrowing. Axial images at C5-C6 level shows uncovertebral facet degenerative change bilaterally causing mild le ft greater than right bilateral neural foraminal narrowing. Axial images at C6-C7 and C7-T1 levels appear within normal limits. IMPRESSION: Spondylolisthesis and degenerative change most prominent at C3-C4 and C4-C5 levels is see n as detailed above.. [facility], , 12/31/2024 11:26 AM
== END | disposition home or self-care (01) ==
LOC: RADMRIMAIN 09:54
PROVIDERS: ATTEND Orthopaedic Surgery
DX: M48.02 Spinal stenosis, cervical region (principal); M50.221 Other cervical disc displacement at C4-C5 level; M47.812 Spondylosis without myelopathy or radiculopathy, cervical region; M43.12 Spondylolisthesis, cervical region
CPT/HCPCS: 72141